=== PATIENT | female | born 1935 | race African-American/Black ===

== ENCOUNTER 2018-02-11 14:59 | Emergency (ER) | payer OTHER, MEDICARE ==
[2018-02-11 17:11] LABS: Potassium 4.6 mEq/L (3.6-5.0)
[2018-02-11 17:15] LABS: Urine Blood NEGATIVE (NEG); Urine Glucose NEGATIVE (NEG); Urine Protein 1+ (NEG); Urine pH 5.5 (5.0-7.0)
[2018-02-11 17:18] LABS: Bilirubin Direct 0.1 mg/dL (0-0.2); Bilirubin Total 0.8 mg/dL (0.3-1.2); Protein, Total 8.4 g/dL (6.0-8.3)
[2018-02-11 17:20] LABS: Absolute Lymphocytes (CBC) 2.3 K/uL (0.7-4.9); Absolute Monocytes 0.6 K/uL (0.1-1.3); Absolute Neutrophil 4.6 K/uL (1.8-8.0); Basophils % 0.7 % (0-1.3); Eosinophils % 1.4 % (0-4.4); Hematocrit 43.9 % (36.0-45.0); Lymphocytes % 30.1 % (15.3-44.8); MCH 27.8 pg (27.0-35.0); MCV 84.7 fL (80-100); MPV 9.5 fL (7.6-11.3); Monocytes % 7.6 % (3.3-12.3); RBC Red Blood Cell Count 5.18 M/uL (3.86-4.86)
--- NOTE | 2018-02-11 17:30 | RAD REPORT ---
EXAM DESCRIPTION: CT - Stone Protocol - 02/11/2018 5:19 pm CLINICAL HISTORY: Abdominal pain. Bilateral flank pain COMPARISON: None. TECHNIQUE: Computed axial tomography of the abdomen pelvis was obtained without oral or IV contrast. Lack of IV and oral contrast limits evaluation of solid organs, bowel, and vessels. Coronal reformat roldan images were obtained and reviewed. All CT scans are performed using dose optimization technique as appropriate and may include automated exposure control or mA/KV adjustment according to patient size. FINDINGS: A renal calculus is not seen. An ureteral calculus is not noted. A bladder calculus is not present. Renal cysts are present bilaterally The liver, spleen, pancreas and adrenals appear grossly normal There is no evidence of diverticulitis. A small umbilical hernia is present. Postsurgical changes involve the spine. The appendix is normal IMPRESSION: Negative for a genitourinary calculus
[2018-02-11 18:07] LABS: Urine Bacteria <20 /HPF (<20); Urine Culture Reflex Order NOT NEEDED; Urine RBC <5 /HPF (NONE SEEN)
[2018-02-11 18:08] LABS: Calcium Oxalate Crystals- Ur FEW (NONE SEEN)
[2018-02-11] MEDS ORDERED: MORPHINE 4 MG/ML SYR ONE (18:45)
[2018-02-11] MEDS ORDERED: ONDANSETRON 4 MG/2 ML VIAL ONE (18:45)
--- NOTE | 2018-02-11 19:43 | EDPHYS ---
Physician Documentation [facility] Name: Niurka Gomes Age: 82 yrs Sex: Female : 1935 Arrival Date: 02/11/2018 Time: 15:02 Bed 16 Private MD: ED Physician Fadi Babb HPI: 02/11 16:00 This 82 yrs old Black Female presents to ER via Wheelchair with complaints of Abdominal jmm Pain. 16:00 The patient presents with abdominal pain flank bilaterally. Onset: The symptoms/episode jmm began/occurred gradually, 1 day(s) ago. The symptoms do not radiate. Associated signs and symptoms: Pertinent negatives: nausea and vomiting, chest pain, fever. Patient complains of bilateral flank pain beginning yesterday. Denies abdominal pain, vomiting, diarrhea, fever. . Historical: - Allergies: 15:12 codeine sulfate (Unknown reaction); sv - Home Meds: 15:50 allopurinol 300 mg Oral tab 1 tab once daily [Active]; aspirin 81 mg Oral chew 1 tab rb1 once daily [Active]; Carafate 1 gram Oral tab 1 tab [Active]; carvedilol 25 mg Oral tab [Active]; clopidogrel 75 mg Oral tab 1 tab once daily [Active]; gabapentin 300 mg/6 mL (6 mL) Oral soln 6 mL 3 times per day [Active]; hydralazine 100 mg Oral tab three times a day [Active]; hydrocodone-acetaminophen 10-325 mg Oral tab 1 tab q6h prn [Active]; Nifedipine 30 mg Oral once daily [Active]; pantoprazole 40 mg Oral TbEC 1 tab once daily [Active]; simvastatin 10 mg Oral tab 1 tab once daily [Active]; Tessalon Perles 100 mg Oral cap twice a day [Active]; trazodone 50 mg Oral tab nightly [Active]; Vitamin D2 50,000 unit Oral cap 1 cap once wkly [Active]; - PMHx: 15:12 Arthritis; Gout; Hypertension; irregular HR; sv - PSHx: 15:12 Carpal Tunnel Repair; back; sv 15:50 neck; rb1 - Immunization history:: Adult Immunizations up to date. - Social history:: Smoking status: Patient/guardian denies using tobacco. - Ebola Screening: : No symptoms or risks identified at this time. ROS: 16:00 Constitutional: Negative for fever, chills, and weight loss, Cardiovascular: Negative jmm for chest pain, palpitations, and edema, Respiratory: Negative for shortness of breath, cough, wheezing, and pleuritic chest pain. 16:00 MS/Extremity: Negative for injury and deformity, Skin: Negative for injury, rash, and discoloration, Neuro: Negative for headache, weakness, numbness, tingling, and seizure. 16:00 Abdomen/GI: Positive for flank pain. 16:00 All other systems are negative. Exam: 16:00 Head/Face: atraumatic. Chest/axilla: Normal chest wall appearance and motion. jmm Nontender with no deformity. No lesions are appreciated. Cardiovascular: Regular rate and rhythm. No gallops, murmurs, or rubs. Full/Equal distal pulses. Respiratory: Lungs have equal breath sounds bilaterally, clear to auscultation. No rales, rhonchi or wheezes noted. No increased work of breathing, no retractions or nasal flaring. 16:00 Skin: Warm, dry with normal turgor. Normal color with no rashes, no lesions, and no evidence of cellulitis. MS/ Extremity: Pulses equal, no cyanosis. Neurovascular intact. Full, normal range of motion. 16:00 Constitutional: The patient appears in no acute distress, alert, awake. 16:00 Abdomen/GI: Inspection: abdomen appears normal, Bowel sounds: normal, Palpation: abdomen is soft and non-tender, in all quadrants. 16:00 Back: CVA tenderness, that is mild, is noted bilaterally. 16:00 Skin: Appearance: Color: normal in color. 16:00 Neuro: Orientation: is normal, Mentation: is normal, Memory: is normal. 16:00 Psych: Behavior/mood is pleasant, cooperative. Vital Signs: 15:12 BP 125 / 68; Pulse 62; Resp 18; Temp 98.7; Pulse Ox 97% ; Weight 99.79 kg; Height 5 ft. sv 5 in. (165.10 cm); Pain 2/10; 16:10 BP 131 / 71; Pulse 66; Resp 18; Pulse Ox 100% on R/A; rb1 17:10 BP 137 / 89; Pulse 72; Resp 18; Pulse Ox 99% on R/A; rb1 18:08 BP 145 / 92; Pulse 61; Resp 19; Pulse Ox 98% on R/A; rb1 19:15 BP 156 / 85; Pulse 56; Pulse Ox 95% on R/A; bs1 20:15 BP 124 / 76; Pulse 60; Resp 16; Temp 98(O); Pulse Ox 97% on R/A; Pain 3/10; bs1 15:12 Body Mass Index 36.61 (99.79 kg, 165.10 cm) sv MDM: 15:58 Patient medically screened. [facility] 16:00 Differential diagnosis: thoracic strain, pyelonephritis, ureterolithiasis. Data [facility] reviewed: vital signs, nurses notes. 02/11 15:59 Order name: Amylase, Serum [facility] 02/11 15:59 Order name: Basic Metabolic Panel [facility] 02/11 15:59 Order name: CBC with Diff; Complete Time: 17:33 [facility] 02/11 15:59 Order name: Creatinine for Radiology; Complete Time: 17:33 [facility] 02/11 15:59 Order name: Hepatic Function; Complete Time: 17:33 [facility] 02/11 15:59 Order name: Lipase; Complete Time: 17:33 [facility] 02/11 15:59 Order name: Urine Microscopic Only; Complete Time: 18:34 [facility] 02/11 15:59 Order name: IV Saline Lock; Complete Time: 16:40 [facility] 02/11 15:59 Order name: CT Stone Protocol; Complete Time: 17:33 [facility] 02/11 15:59 Order name: Amylase Level; Complete Time: 17:33 [facility] [place] 02/11 15:59 Order name: Basic Metabolic Panel; Complete Time: 17:33 [facility] 02/11 17:07 Order name: Urine Dipstick--Ancillary (enter results); Complete Time: 17:33 02/11 15:59 Order name: Labs collected and sent; Complete Time: 16:40 [facility] 02/11 15:59 Order name: Urine Dipstick-Ancillary (obtain specimen); Complete Time: 17:07 [facility] Administered Medications: 18:45 Drug: Zofran 4 mg Route: IVP; Site: right antecubital; rb1 20:27 Follow up: Response: No adverse reaction bs1 18:45 Drug: morphine 2 mg Route: IVP; Site: right antecubital; rb1 20:26 Follow up: Response: No adverse reaction bs1 Disposition: 02/11/18 19:43 Discharged to Home. Impression: Flank Pain. - Condition is Stable. - Discharge Instructions: Flank Pain. - Prescriptions for orphenadrine citrate 100 mg Oral Tablet Sustained Release - take 1 tablet by ORAL route 2 times per day As needed; 20 tablet. - Medication Reconciliation Form, Thank You Letter, Antibiotic Education, Prescription Opioid Use form. - Follow up: Private Physician; When: 2 - 3 days; Reason: Continuance of care. Addendum: 02/13/2018 07:02 Co-signature as Attending Physician, Fadi Babb MD. r n Signatures: Dispatcher [employer] EDAry Duran, RN RN Trent Torres PA PA jmm Nieto, Roman, MD MD rn Barber, Rebecca RN RN Dana Richter RN RN bs1 Corrections: (The following items were deleted from the chart) 02/11 20:28 19:43 02/11/2018 19:43 Discharged to Home. Impression: Flank Pain. Condition is Stable. bs1 Forms are Medication Reconciliation Form, Thank You Letter, Antibiotic Education, Prescription Opioid Use. Follow up: Private Physician; When: 2 - 3 days; Reason: Continuance of care. kermit
--- NOTE | 2018-02-11 19:43 | ER ---
Nurse's Notes [facility] Name: Niurka Gomes Age: 82 yrs Sex: Female : 1935 Arrival Date: 02/11/2018 Time: 15:02 Bed 16 Private MD: Diagnosis: Flank Pain Presentation: 02/11 15:11 Presenting complaint: Patient states: carmen flank pain x 1 day. Denies n/v/urinary sv symptoms. Transition of care: patient was not received from another setting of care. Onset of symptoms was February 10, 2018. Care prior to arrival: None. 15:11 Method Of Arrival: Wheelchair sv 15:11 Acuity: YESENIA 3 sv 15:50 Risk Assessment: Do you want to hurt yourself or someone else? Patient reports no rb1 desire to harm self or others. Initial Sepsis Screen: Does the patient meet any 2 criteria? No. Patient's initial sepsis screen is negative. Does the patient have a suspected source of infection? No. Patient's initial sepsis screen is negative. Historical: - Allergies: 15:12 codeine sulfate (Unknown reaction); sv - Home Meds: 15:50 allopurinol 300 mg Oral tab 1 tab once daily [Active]; aspirin 81 mg Oral chew 1 tab rb1 once daily [Active]; Carafate 1 gram Oral tab 1 tab [Active]; carvedilol 25 mg Oral tab [Active]; clopidogrel 75 mg Oral tab 1 tab once daily [Active]; gabapentin 300 mg/6 mL (6 mL) Oral soln 6 mL 3 times per day [Active]; hydralazine 100 mg Oral tab three times a day [Active]; hydrocodone-acetaminophen 10-325 mg Oral tab 1 tab q6h prn [Active]; Nifedipine 30 mg Oral once daily [Active]; pantoprazole 40 mg Oral TbEC 1 tab once daily [Active]; simvastatin 10 mg Oral tab 1 tab once daily [Active]; Tessalon Perles 100 mg Oral cap twice a day [Active]; trazodone 50 mg Oral tab nightly [Active]; Vitamin D2 50,000 unit Oral cap 1 cap once wkly [Active]; - PMHx: 15:12 Arthritis; Gout; Hypertension; irregular HR; sv - PSHx: 15:12 Carpal Tunnel Repair; back; sv 15:50 neck; rb1 - Immunization history:: Adult Immunizations up to date. - Social history:: Smoking status: Patient/guardian denies using tobacco. - Ebola Screening: : No symptoms or risks identified at this time. Screenin:50 Abuse screen: Denies threats or abuse. Nutritional screening: No deficits noted. rb1 Tuberculosis screening: No symptoms or risk factors identified. Fall Risk None identified. Assessment: 15:50 General: Appears in no apparent distress. comfortable, obese, Behavior is calm, rb1 cooperative, Denies fever. Pain: Complains of pain in left mid back and right mid back Pain currently is 4 out of 10 on a pain scale. Pain began 1 day ago. Neuro: Level of Consciousness is awake, alert, obeys commands, Oriented to person, place, time, situation. Cardiovascular: Capillary refill < 3 seconds is brisk in bilateral fingers. Respiratory: Airway is patent Respiratory effort is even, unlabored, Respiratory pattern is regular, symmetrical. GI: Bowel sounds present X 4 quads. Abd is soft. : No signs and/or symptoms were reported regarding the genitourinary system. Derm: Skin is dry, Skin is normal, Skin temperature is warm. 16:25 Reassessment: Called lab to ask them to come and draw labs. Provider notified. rb1 16:50 Reassessment: Patient appears in no apparent distress at this time. No changes from rb1 previously documented assessment. 17:45 Reassessment: Patient appears in no apparent distress at this time. Patient and/or rb1 family updated on plan of care and expected duration. Pain level reassessed. Patient is alert, oriented x 3, equal unlabored respirations, skin warm/dry/pink. Family at bedside. 18:45 Reassessment: Patient appears in no apparent distress at this time. Patient and/or rb1 family updated on plan of care and expected duration. Pain level reassessed. Patient is alert, oriented x 3, equal unlabored respirations, skin warm/dry/pink. Pt. medicated for pain. family at bedside. 19:05 Reassessment: Report received from YAW Stewart. bs1 19:05 General: Appears in no apparent distress. comfortable, obese, Behavior is cooperative, bs1 Denies fever. Pain: Complains of pain in back and right mid back and left mid back. Neuro: Level of Consciousness is awake, alert, obeys commands, Oriented to person, place, time, situation, Appropriate for age. Cardiovascular: Denies chest pain, shortness of breath, Heart tones S1 S2 present Capillary refill < 3 seconds is brisk in bilateral fingers. Respiratory: Airway is patent Trachea midline Respiratory effort is even, unlabored, Respiratory pattern is regular, symmetrical, Breath sounds are clear bilaterally. GI: Abdomen is round non-distended, Bowel sounds present X 4 quads. : No signs and/or symptoms were reported regarding the genitourinary system. Derm: Skin is intact. 20:15 Reassessment: Patient appears in no apparent distress at this time. Patient and/or bs1 family updated on plan of care and expected duration. Pain level reassessed. Patient is alert, oriented x 3, equal unlabored respirations, skin warm/dry/pink. Vital Signs: 15:12 BP 125 / 68; Pulse 62; Resp 18; Temp 98.7; Pulse Ox 97% ; Weight 99.79 kg; Height 5 ft. sv 5 in. (165.10 cm); Pain 2/10; 16:10 BP 131 / 71; Pulse 66; Resp 18; Pulse Ox 100% on R/A; rb1 17:10 BP 137 / 89; Pulse 72; Resp 18; Pulse Ox 99% on R/A; rb1 18:08 BP 145 / 92; Pulse 61; Resp 19; Pulse Ox 98% on R/A; rb1 19:15 BP 156 / 85; Pulse 56; Pulse Ox 95% on R/A; bs1 20:15 BP 124 / 76; Pulse 60; Resp 16; Temp 98(O); Pulse Ox 97% on R/A; Pain 3/10; bs1 15:12 Body Mass Index 36.61 (99.79 kg, 165.10 cm) sv ED Course: 15:02 Patient arrived in ED. mr 15:11 Triage completed. sv 15:14 Arm band placed on left wrist. sv 15:49 Trent Sams PA is PHCP. jmm 15:49 Fadi Babb MD is Attending Physician. jmm 15:50 Patient has correct armband on for positive identification. Bed in low position. Call rb1 light in reach. Side rails up X 1. Pulse ox on. NIBP on. Warm blanket given. 16:24 Pat Patricia, YAW is Primary Nurse. rb1 16:38 Inserted saline lock: 22 gauge in right antecubital area, using aseptic technique. rb1 ,using aseptic technique. Inserted by LUIZ Sanchez. 17:12 Patient moved to HI. 17:19 CT Stone Protocol In Process Unspecified. EDMS 19:00 Report given to YAW Cortez. rb1 20:22 No provider procedures requiring assistance completed. IV discontinued, bleeding bs1 controlled, No redness/swelling at site. Pressure dressing applied. Administered Medications: 18:45 Drug: Zofran 4 mg Route: IVP; Site: right antecubital; rb1 20:27 Follow up: Response: No adverse reaction bs1 18:45 Drug: morphine 2 mg Route: IVP; Site: right antecubital; rb1 20:26 Follow up: Response: No adverse reaction bs1 Outcome: 19:43 Discharge ordered by . [facility] 20:25 Discharged to home via wheelchair. bs1 20:25 Condition: stable 20:25 Discharge instructions given to patient, Instructed on discharge instructions, follow up and referral plans. medication usage, Demonstrated understanding of instructions, follow-up care, medications, Prescriptions given X 1. 20:28 Patient left the ED. bs1 Signatures: Dispatcher [employer] EDMS Ary Acosta, RN RN Trent Sams PA PA [facility] Vivian Morel mr Moreira, Parris Pat Patricia, RN RN rb1 Dana Pennington, YAW RN bs1 Corrections: (The following items were deleted from the chart) 18:14 18:12 BP 145 / 92; Pulse 61bpm; Resp 19bpm; Pulse Ox 98% RA; rb1 rb1
[2018-02-11 20:41] VITALS: BP 124/76; TEMP 98; O2SAT 97
== END 2018-02-11 20:28 | disposition home or self-care (01) ==
LOC: ER 14:59
DX: R10.9 Unspecified abdominal pain (principal); I10 Essential (primary) hypertension; Z79.82 Long term (current) use of aspirin; Z88.5 Allergy status to narcotic agent
CPT/HCPCS: 36415; 74176; 76377; 80048; 80076; 82150; 83690; 85025; J2405; 81003; 81015; 96374; 96375; 99284

== ENCOUNTER 2018-10-25 08:18 | Emergency (ER) | payer OTHER, MEDICARE ==
--- NOTE | 2018-10-25 08:57 | RAD REPORT ---
EXAM DESCRIPTION: RAD - Chest Single View - 10/25/2018 8:41 am CLINICAL HISTORY: COUGH Chest pain. COMPARISON: Chest Single View dated 08/02/2017; Chest Single View dated 07/02/2017; Chest Pa And Lat (2 Views) dated 10/23/2016; Chest Single View dated 09/18/2016 FINDINGS: Portable technique limits examination quality. Mildly prominent interstitial lung markings are noted, unchanged. The heart is normal in size. No dis placed fractures.
--- NOTE | 2018-10-25 09:09 | ER ---
Nurse's Notes [facility] Name: Niurka Gomes Age: 82 yrs Sex: Female : 1935 Arrival Date: 10/25/2018 Time: 08:23 Bed 7 Private MD: Diagnosis: Acute upper respiratory infection, unspecified Presentation: 10/25 08:23 Presenting complaint: EMS states: Cough that worsened last night and this morning, no sg n/v/d/fever reported, denies chills, reports having been around someone that had the flu recently. Transition of care: patient was not received from another setting of care. Onset of symptoms was October 11, 2018. Risk Assessment: Do you want to hurt yourself or someone else? Patient reports no desire to harm self or others. Initial Sepsis Screen: Does the patient meet any 2 criteria? No. Patient's initial sepsis screen is negative. Does the patient have a suspected source of infection? Yes: Productive cough/pneumonia. Care prior to arrival: IV initiated. 20 GA, in the right antecubital area. 08:23 Method Of Arrival: EMS: [facility] sg 08:23 Acuity: YESENIA 4 sg Historical: - Allergies: 08:31 codeine sulfate (Unknown reaction); sg - Home Meds: 08:31 allopurinol 300 mg Oral tab 1 tab once daily [Active]; aspirin 81 mg Oral chew 1 tab sg once daily [Active]; Carafate 1 gram Oral tab 1 tab [Active]; carvedilol 25 mg Oral tab [Active]; clopidogrel 75 mg Oral tab 1 tab once daily [Active]; gabapentin 300 mg/6 mL (6 mL) Oral soln 6 mL 3 times per day [Active]; hydralazine 100 mg Oral tab three times a day [Active]; hydrocodone-acetaminophen 10-325 mg Oral tab 1 tab q6h prn [Active]; Nifedipine 30 mg Oral once daily [Active]; pantoprazole 40 mg Oral TbEC 1 tab once daily [Active]; simvastatin 10 mg Oral tab 1 tab once daily [Active]; Tessalon Perles 100 mg Oral cap twice a day [Active]; trazodone 50 mg Oral tab nightly [Active]; Vitamin D2 50,000 unit Oral cap 1 cap once wkly [Active]; - PMHx: 08:31 Arthritis; Gout; Hypertension; irregular HR; sg - PSHx: 08:31 Carpal Tunnel Repair; back; neck; sg - Immunization history:: Adult Immunizations up to date. - Social history:: Smoking status: Patient/guardian denies using tobacco. - Ebola Screening: : Patient negative for fever greater than or equal to 101.5 degrees Fahrenheit, and additional compatible Ebola Virus Disease symptoms Patient denies exposure to infectious person Patient denies travel to an Ebola-affected area in the 21 days before illness onset No symptoms or risks identified at this time. Screenin:34 Abuse screen: Denies threats or abuse. Denies injuries from another. Nutritional sg screening: No deficits noted. Tuberculosis screening: No symptoms or risk factors identified. Never had TB. Fall Risk None identified. Assessment: 08:32 General: Appears in no apparent distress. comfortable, well groomed, well developed, sg well nourished, Behavior is calm, cooperative, appropriate for age. Pain: Denies pain. Neuro: Level of Consciousness is awake, alert, obeys commands, Oriented to person, place, time, situation, [employer] Instructor are equal bilaterally Speech is normal. Cardiovascular: Capillary refill is brisk in bilateral fingers Patient's skin is warm and dry. Chest pain is denied. Respiratory: Reports cough that is non-productive, hacking, persistent Airway is patent Respiratory effort is even, unlabored, Respiratory pattern is regular, symmetrical. GI: No signs and/or symptoms were reported involving the gastrointestinal system. : No signs and/or symptoms were reported regarding the genitourinary system. EENT: No signs and/or symptoms were reported regarding the EENT system. Derm: Skin is pink, warm \T\ dry. Musculoskeletal: No signs and/or symptoms reported regarding the musculoskeletal system. 08:34 Reassessment: xray at bedside. sg 09:19 Reassessment: Patient appears in no apparent distress at this time. Patient and/or sg family updated on plan of care and expected duration. Pain level reassessed. Patient is alert, oriented x 3, equal unlabored respirations, skin warm/dry/pink. awaiting pt family member, Sandrine, to come pick her up from the ED at this time. 10:00 Reassessment: Patient appears in no apparent distress at this time. No changes from aj1 previously documented assessment. Patient and/or family updated on plan of care and expected duration. Pain level reassessed. Patient is alert, oriented x 3, equal unlabored respirations, skin warm/dry/pink. Vital Signs: 08:25 BP 188 / 90; Pulse 80; Resp 17; Temp 98.4; Pulse Ox 96% on R/A; Weight 115.67 kg (R); sg Pain 2/10; 09:07 BP 158 / 78; Pulse 77; Resp 16; Pulse Ox 98% on R/A; hb 10:30 BP 158 / 72; Pulse 68; Resp 18; Pulse Ox 97% on R/A; aj1 ED Course: 08:23 Patient arrived in ED. sg 08:23 Jer[facility]C [facility] kb 08:23 Wilner Gordillo MD is Attending Physician. kb 08:25 Triage completed. sg 08:26 Arm band placed on. sg 08:34 Waldo Serrano, RN is Primary Nurse. sg 08:35 Flu and/or RSV swab sent to lab. sg 08:40 Patient has correct armband on for positive identification. Placed in gown. Bed in low sg position. Side rails up X2. media monitor on. Pulse ox on. NIBP on. Warm blanket given. Head of bed elevated. 08:41 X-ray completed. Portable x-ray completed in exam room. Patient tolerated procedure sg4 well. 08:42 Chest Single View XRAY In Process Unspecified. EDMS 10:00 Maintain EMS IV. Dressing intact. Good blood return noted. Site clean \T\ dry. Gauge \T\ aj 1 site: 22 right AC. 10:56 No provider procedures requiring assistance completed. IV discontinued, intact, aj1 bleeding controlled, No redness/swelling at site. Pressure dressing applied. Administered Medications: 09:15 Drug: SOLU-Medrol 125 mg Route: IVP; Site: right antecubital; sg 09:15 Drug: ZyrTEC - Cetirizine 10 mg Route: PO; sg Outcome: 09:09 Discharge ordered by . kb 10:57 Discharged to home via wheelchair, with family. aj1 10:57 Condition: good 10:57 Discharge instructions given to patient, family, Instructed on discharge instructions, follow up and referral plans. medication usage, Demonstrated understanding of instructions, follow-up care, medications, Prescriptions given X 1. 10:58 Patient left the ED. aj1 Signatures: Dispatcher [employer] EDJerri Castellanos, DAREK BLACKWELL-Donna Gannon RN RN aj1 Waldo Serrano RN RN sg Margarita Ybarra RN RN hb Garcia, Susana sg4 Corrections: (The following items were deleted from the chart) 08:26 08:23 Care prior to arrival: None. sg sg
--- NOTE | 2018-10-25 09:09 | EDPHYS ---
Physician Documentation [facility] Name: Niurka Gomes Age: 82 yrs Sex: Female : 1935 Arrival Date: 10/25/2018 Time: 08:23 Bed 7 Private MD: ED Physician Wilner Gordillo HPI: 10/25 08:24 This 82 yrs old Black Female presents to ER via Unassigned with complaints of Cough. kb 08:24 The patient or guardian reports cough, that is intermittent, described as moderate, kb with no sputum. Onset: The symptoms/episode began/occurred 1 week(s) ago. Severity of symptoms: At their worst the symptoms were mild, moderate, in the emergency department the symptoms are unchanged. Modifying factors: The symptoms are alleviated by nothing, the symptoms are aggravated by nothing. Associated signs and symptoms: The patient has no apparent associated signs or symptoms. The patient has not experienced similar symptoms in the past. The patient has not recently seen a physician. Pt reports cough for a week, worse last night. Cough is dry. Denies fever. States others in the family have had cold symptoms . Historical: - Allergies: 08: codeine sulfate (Unknown reaction); sg - Home Meds: : allopurinol 300 mg Oral tab 1 tab once daily [Active]; aspirin 81 mg Oral chew 1 tab sg once daily [Active]; Carafate 1 gram Oral tab 1 tab [Active]; carvedilol 25 mg Oral tab [Active]; clopidogrel 75 mg Oral tab 1 tab once daily [Active]; gabapentin 300 mg/6 mL (6 mL) Oral soln 6 mL 3 times per day [Active]; hydralazine 100 mg Oral tab three times a day [Active]; hydrocodone-acetaminophen 10-325 mg Oral tab 1 tab q6h prn [Active]; Nifedipine 30 mg Oral once daily [Active]; pantoprazole 40 mg Oral TbEC 1 tab once daily [Active]; simvastatin 10 mg Oral tab 1 tab once daily [Active]; Tessalon Perles 100 mg Oral cap twice a day [Active]; trazodone 50 mg Oral tab nightly [Active]; Vitamin D2 50,000 unit Oral cap 1 cap once wkly [Active]; - PMHx: 08:31 Arthritis; Gout; Hypertension; irregular HR; sg - PSHx: 08:31 Carpal Tunnel Repair; back; neck; sg - Immunization history:: Adult Immunizations up to date. - Social history:: Smoking status: Patient/guardian denies using tobacco. - Ebola Screening: : Patient negative for fever greater than or equal to 101.5 degrees Fahrenheit, and additional compatible Ebola Virus Disease symptoms Patient denies exposure to infectious person Patient denies travel to an Ebola-affected area in the 21 days before illness onset No symptoms or risks identified at this time. ROS: 08:24 Constitutional: Negative for fever, chills, and weight loss, Neck: Negative for injury, kb pain, and swelling, Cardiovascular: Negative for chest pain, palpitations, and edema, Abdomen/GI: Negative for abdominal pain, nausea, vomiting, diarrhea, and constipation, Back: Negative for injury and pain, : Negative for injury, bleeding, discharge, and swelling, MS/Extremity: Negative for injury and deformity, Skin: Negative for injury, rash, and discoloration, Neuro: Negative for headache, weakness, numbness, tingling, and seizure. 08:24 Respiratory: Positive for cough, Negative for dyspnea on exertion, hemoptysis, orthopnea, pleurisy, shortness of breath, sputum production, wheezing, acute changes. 08:27 ENT: Positive for ear pain. kb Exam: 08:24 Constitutional: This is a well developed, well nourished patient who is awake, alert, kb and in no acute distress. Head/Face: Normocephalic, atraumatic. ENT: Nares patent. No nasal discharge, no septal abnormalities noted. Tympanic membranes are normal and external auditory canals are clear. Oropharynx with no redness, swelling, or masses, exudates, or evidence of obstruction, uvula midline. Mucous membranes moist. Neck: Trachea midline, no thyromegaly or masses palpated, and no cervical lymphadenopathy. Supple, full range of motion without nuchal rigidity, or vertebral point tenderness. No Meningismus. Chest/axilla: Normal chest wall appearance and motion. Nontender with no deformity. No lesions are appreciated. Cardiovascular: Regular rate and rhythm with a normal S1 and S2. No gallops, murmurs, or rubs. Normal PMI, no JVD. No pulse deficits. Respiratory: Lungs have equal breath sounds bilaterally, clear to auscultation and percussion. No rales, rhonchi or wheezes noted. No increased work of breathing, no retractions or nasal flaring. Abdomen/GI: Soft, non-tender, with normal bowel sounds. No distension or tympany. No guarding or rebound. No evidence of tenderness throughout. Back: No spinal tenderness. No costovertebral tenderness. Full range of motion. Skin: Warm, dry with normal turgor. Normal color with no rashes, no lesions, and no evidence of cellulitis. MS/ Extremity: Pulses equal, no cyanosis. Neurovascular intact. Full, normal range of motion. Neuro: Awake and alert, GCS 15, oriented to person, place, time, and situation. Cranial nerves II-XII grossly intact. Motor strength 5/5 in all extremities. Sensory grossly intact. Cerebellar exam normal. Normal gait. Vital Signs: 08:25 BP 188 / 90; Pulse 80; Resp 17; Temp 98.4; Pulse Ox 96% on R/A; Weight 115.67 kg (R); sg Pain 2/10; 09:07 BP 158 / 78; Pulse 77; Resp 16; Pulse Ox 98% on R/A; hb 10:30 BP 158 / 72; Pulse 68; Resp 18; Pulse Ox 97% on R/A; aj1 MDM: 08:23 Patient medically screened. kb 08:28 Data reviewed: vital signs, nurses notes. Data interpreted: Pulse oximetry: on room air kb is 96 %. Interpretation: normal. 09:08 Counseling: I had a detailed discussion with the patient and/or guardian regarding: the kb historical points, exam findings, and any diagnostic results supporting the discharge/admit diagnosis, lab results, radiology results, the need for outpatient follow up, a family practitioner, to return to the emergency department if symptoms worsen or persist or if there are any questions or concerns that arise at home. 10/25 08:23 Order name: Flu; Complete Time: 09:02 kb 10/25 08:23 Order name: Chest Single View XRAY; Complete Time: 08:59 kb Administered Medications: 09:15 Drug: SOLU-Medrol 125 mg Route: IVP; Site: right antecubital; sg 09:15 Drug: ZyrTEC - Cetirizine 10 mg Route: PO; sg Disposition: 10/25/18 09:09 Discharged to Home. Impression: Acute upper respiratory infection, unspecified. - Condition is Stable. - Discharge Instructions: Upper Respiratory Infection, Adult, [id number], Viral Respiratory Infection, Cikq-On-Aope. - Prescriptions for Tessalon Perles 100 mg Oral Capsule - take 1 capsule by ORAL route every 8 hours As needed; 15 capsule. - Medication Reconciliation Form, Thank You Letter, Antibiotic Education, Prescription Opioid Use form. - Follow up: Emergency Department; When: As needed; Reason: Worsening of condition. Follow up: Private Physician; When: 2 - 3 days; Reason: Recheck today's complaints, Continuance of care, Re-evaluation by your physician. Addendum: 10/27/2018 07:30 Co-signature as Attending Physician, Wilner Gordillo MD I agree with the assessment and c martinez plan of care. Signatures: Dispatcher [employer] EDJerri Castellanos, RISHI-C STUDENT OFFICER-Donna Gannon RN RN aj1 Gay, Steven, RN RN sg Anderson, Corey, MD MD cha Corrections: (The following items were deleted from the chart) 10/25 08:28 08:24 Constitutional: Negative for fever, chills, and weight loss, ENT: Negative for kb injury, pain, and discharge, Neck: Negative for injury, pain, and swelling, Cardiovascular: Negative for chest pain, palpitations, and edema, Abdomen/GI: Negative for abdominal pain, nausea, vomiting, diarrhea, and constipation, Back: Negative for injury and pain, : Negative for injury, bleeding, discharge, and swelling, MS/Extremity: Negative for injury and deformity, Skin: Negative for injury, rash, and discoloration, Neuro: Negative for headache, weakness, numbness, tingling, and seizure, kb 10:58 09:09 10/25/2018 09:09 Discharged to Home. Impression: Acute upper respiratory aj1 infection, unspecified. Condition is Stable. Forms are Medication Reconciliation Form, Thank You Letter, Antibiotic Education, Prescription Opioid Use. Follow up: Emergency Department; When: As needed; Reason: Worsening of condition. Follow up: Private Physician; When: 2 - 3 days; Reason: Recheck today's complaints, Continuance of care, Re-evaluation by your physician. kb
[2018-10-25] MEDS ORDERED: CETIRIZINE HCL 5 MG TABLET ONE (09:21)
[2018-10-25] MEDS ORDERED: METHYLPREDNISOLONE 125 MG INJ ONE (09:21)
[2018-10-25 11:08] VITALS: TEMP 98.4
[2018-10-25 11:11] VITALS: BP 158/72; O2SAT 97
== END 2018-10-25 10:58 | disposition home or self-care (01) ==
LOC: ER 08:18
DX: J06.9 Acute upper respiratory infection, unspecified (principal); M10.9 Gout, unspecified; I10 Essential (primary) hypertension; Z79.84 Long term (current) use of oral hypoglycemic drugs; Z88.5 Allergy status to narcotic agent
CPT/HCPCS: 71045; 87804 ×2; 96374; 99284; J2930

== ENCOUNTER 2018-12-14 17:15 | Emergency (ER) | payer OTHER, MEDICARE ==
--- NOTE | 2018-12-14 18:31 | RAD REPORT ---
EXAM DESCRIPTION: CT - Head Brain Wo Cont - 12/14/2018 6:18 pm CLINICAL HISTORY: Headache, visual disturbances COMPARISON: December 2014 TECHNIQUE: Axial 5 mm thick images of the head were obtained without IV contrast. All CT scans are performed using dose optimization technique as appropriate and may include automated exposure control or mA/KV adjustment according to patient size. FINDINGS: No intracranial hemorrhage, mass, edema or shift of mid-line structures. No acute cortical based infarction. Atrophy and chronic ischemic changes are present mild to moderate in degree. Ventr icles are in proportion to the volume loss. No abnormal extra-axial fluid collections. The intracrani al findings are not substantially different from comparison. Mastoid air cells and visualized portions of the paranasal sinuses are clear. No acute bony findings. IMPRESSION: Negative non-contrast CT head examination for acute finding. Mild to moderate atrophy and chronic ischemic change matching the prior study.
--- NOTE | 2018-12-14 18:42 | ER ---
Nurse's Notes [facility] Name: Niurka Gomes Age: 83 yrs Sex: Female : 1935 Arrival Date: 12/14/2018 Time: 17:21 Bed 23 Private MD: Diagnosis: Muscle spasm of back-and neck Presentation: 12/14 17:21 Presenting complaint: Patient states: PAIN STARTED SATURDAY IN MY NECK AND HEAD. 04/11 rv AT WORSE. 10 RIGHT NOW. WENT TO THE DOCTOR AND PRESCRIBED WITH HYDROCODONE. I ONLY TAKE HALF OF IT BECAUSE IT MAKES ME NAUSEOUS. IT IS TOO STRONG FOR ME. Transition of care: patient was not received from another setting of care. Onset of symptoms was December 11, 2018 at 08:00. Risk Assessment: Do you want to hurt yourself or someone else? Patient reports no desire to harm self or others. Initial Sepsis Screen: Does the patient meet any 2 criteria? No. Patient's initial sepsis screen is negative. Does the patient have a suspected source of infection? No. Patient's initial sepsis screen is negative. Care prior to arrival: None. 17:21 Method Of Arrival: EMS: [facility] rv 17:21 Acuity: YESENIA 3 rv Historical: - Allergies: 17:26 codeine sulfate (Vomiting, Upset stomach); rv - PMHx: 17:26 Arthritis; Gout; Hypertension; irregular HR; rv - PSHx: 17:26 BACK SURGERY; rv - Immunization history:: Adult Immunizations up to date. - Social history:: Smoking status: Patient/guardian denies using tobacco, Patient uses. - Ebola Screening: : Patient negative for fever greater than or equal to 101.5 degrees Fahrenheit, and additional compatible Ebola Virus Disease symptoms Patient denies exposure to infectious person Patient denies travel to an Ebola-affected area in the 21 days before illness onset. Screenin:25 Abuse screen: Denies threats or abuse. Denies injuries from another. Nutritional ca1 screening: No deficits noted. Tuberculosis screening: No symptoms or risk factors identified. Fall Risk None identified. Assessment: 17:25 General: Appears in no apparent distress. comfortable, Behavior is calm, cooperative, ca1 appropriate for age. 17:25 Pain: Complains of pain in neck Pain does not radiate. Pain currently is 6 out of 10 on ca1 a pain scale. Pain began 2-3 days ago. 17:25 Neuro: Level of Consciousness is awake, alert, obeys commands, Oriented to person, ca1 place, time, situation. Cardiovascular: Heart tones S1 S2 present Capillary refill < 3 seconds Patient's skin is warm and dry. Respiratory: Airway is patent Respiratory effort is even, unlabored, Respiratory pattern is regular, symmetrical, Breath sounds are clear bilaterally. GI: Abdomen is round non-distended, Bowel sounds present X 4 quads. Abd is soft and non tender X 4 quads. Reports nausea. : No deficits noted. No signs and/or symptoms were reported regarding the genitourinary system. EENT: No deficits noted. No signs and/or symptoms were reported regarding the EENT system. Derm: Skin is intact, is healthy with good turgor, Skin is pink, warm \T\ dry. Musculoskeletal: Circulation, motion, and sensation intact. Capillary refill < 3 seconds. 18:30 Reassessment: Patient appears in no apparent distress at this time. Patient and/or ca1 family updated on plan of care and expected duration. Pain level reassessed. Patient is alert, oriented x 3, equal unlabored respirations, skin warm/dry/pink. 19:15 Reassessment: Patient appears in no apparent distress at this time. Patient is alert, ca1 oriented x 3, equal unlabored respirations, skin warm/dry/pink. Vital Signs: 17:26 BP 129 / 52 RA; Pulse 59; Resp 17 S; Temp 97.9(O); Pulse Ox 98% on R/A; Weight 104.33 rv kg; Height 5 ft. 5 in. (165.10 cm); Pain 7/10; 19:16 BP 133 / 54; Pulse 60; Resp 18 S; Pulse Ox 100% on R/A; ca1 17:26 Body Mass Index 38.27 (104.33 kg, 165.10 cm) rv ED Course: 17:21 Patient arrived in ED. rv 17:21 Arm band placed on right wrist. ca1 17:22 [place] Urias PA is PHCP. jr8 17:22 Wilner Gordillo MD is Attending Physician. jr8 17:23 Triage completed. rv 17:25 Patient has correct armband on for positive identification. Placed in gown. Bed in low ca1 position. Call light in reach. Side rails up X 1. Pulse ox on. NIBP on. Warm blanket given. 17:34 Tonia Young, RN is Primary Nurse. ca1 18:19 CT Head Brain wo Cont In Process Unspecified. EDMS 19:14 No provider procedures requiring assistance completed. Patient did not have IV access ca1 during this emergency room visit. Administered Medications: 19:14 Drug: Zofran 4 mg Route: PO; ca1 19:14 Follow up: Response: Medication administered at discharge. ca1 Outcome: 18:40 Discharge ordered by . liz 19:16 Discharged to home via wheelchair. ca1 19:16 Condition: stable 19:16 Discharge instructions given to patient, family, daughter Instructed on discharge instructions, follow up and referral plans. medication usage, Demonstrated understanding of instructions, follow-up care, medications, Prescriptions given X 2. 19:19 Patient left the ED. ca1 Signatures: Dispatcher [employer] EDMS Montana Urias PA PA jr8 Vicente, Ronaldo, RN RN rv Tonia Young, YAW RN ca1 Corrections: (The following items were deleted from the chart) 17:50 17:25 General: Appears in no apparent distress. comfortable, Behavior is calm, ca1 cooperative, appropriate for age, ca1
--- NOTE | 2018-12-14 18:42 | EDPHYS ---
Physician Documentation [facility] Name: Niurka Gomes Age: 83 yrs Sex: Female : 1935 Arrival Date: 12/14/2018 Time: 17:21 Bed 23 Private MD: ED Physician Wilner Gordillo HPI: 12/14 17:43 This 83 yrs old Black Female presents to ER via EMS with complaints of Neck stiffness. jr8 Head pain. 17:43 The patient or guardian complains of pain, tenderness. The symptoms are located on the jr8 right side of neck. Onset: The symptoms/episode began/occurred gradually, 3 day(s) ago. Context: The problem was sustained at home, The neck injury/problem resulted from from unknown cause. Associated signs and symptoms: Pertinent positives: headache. The pain does not radiate. Modifying factors: The symptoms are alleviated by nothing. Severity of symptoms: At their worst the symptoms were mild, in the emergency department the symptoms are unchanged. The patient has not experienced similar symptoms in the past. The patient has been recently seen by a physician:. Patient stated that she woke up with neck pain on right side. Has had headache with it as well. Around the same time noticed on/off double vision. Recently saw PCP and was given Hydrocodone. Stated that it makes her nauseated and is to strong for her . Historical: - Allergies: 17:26 codeine sulfate (Vomiting, Upset stomach); rv - PMHx: 17:26 Arthritis; Gout; Hypertension; irregular HR; rv - PSHx: 17:26 BACK SURGERY; rv - Immunization history:: Adult Immunizations up to date. - Social history:: Smoking status: Patient/guardian denies using tobacco, Patient uses. - Ebola Screening: : Patient negative for fever greater than or equal to 101.5 degrees Fahrenheit, and additional compatible Ebola Virus Disease symptoms Patient denies exposure to infectious person Patient denies travel to an Ebola-affected area in the 21 days before illness onset. ROS: 17:43 Eyes: Negative for injury, pain, redness, and discharge, ENT: Negative for injury, jr8 pain, and discharge, Cardiovascular: Negative for chest pain, palpitations, and edema, Respiratory: Negative for shortness of breath, cough, wheezing, and pleuritic chest pain, Abdomen/GI: Negative for abdominal pain, nausea, vomiting, diarrhea, and constipation, Back: Negative for injury and pain, MS/Extremity: Negative for injury and deformity, Skin: Negative for injury, rash, and discoloration. 17:43 Neck: Positive for pain with movement, pain at rest, stiffness, tenderness, Negative for bony tenderness. 17:43 Neuro: Positive for headache, visual changes. Exam: 17:43 Eyes: Pupils equal round and reactive to light, extra-ocular motions intact. Lids and jr8 lashes normal. Conjunctiva and sclera are non-icteric and not injected. Cornea within normal limits. Periorbital areas with no swelling, redness, or edema. ENT: Nares patent. No nasal discharge, no septal abnormalities noted. Tympanic membranes are normal and external auditory canals are clear. Oropharynx with no redness, swelling, or masses, exudates, or evidence of obstruction, uvula midline. Mucous membranes moist. Cardiovascular: Regular rate and rhythm with a normal S1 and S2. No gallops, murmurs, or rubs. Normal PMI, no JVD. No pulse deficits. Respiratory: Lungs have equal breath sounds bilaterally, clear to auscultation and percussion. No rales, rhonchi or wheezes noted. No increased work of breathing, no retractions or nasal flaring. Abdomen/GI: Soft, non-tender, with normal bowel sounds. No distension or tympany. No guarding or rebound. No evidence of tenderness throughout. Skin: Warm, dry with normal turgor. Normal color with no rashes, no lesions, and no evidence of cellulitis. MS/ Extremity: Pulses equal, no cyanosis. Neurovascular intact. Full, normal range of motion. Neuro: Awake and alert, GCS 15, oriented to person, place, time, and situation. Cranial nerves II-XII grossly intact. Motor strength 5/5 in all extremities. Sensory grossly intact. Cerebellar exam normal. Normal gait. 17:43 Neck: External neck: tenderness, that is moderate, of the right mid cervical area and right trapezius, C-spine: appears grossly normal, no vertebral tenderness, no crepitus, Thyroid: appears normal, Trachea: is midline with no obvious abnormalities, ROM/movement: pain, that is mild, with any movement, Lymph nodes: no appreciated lymphadenopathy. 17:43 Back: pain, that is moderate, of the right trapezius, ROM is normal, normal spinal alignment noted, CVA tenderness, is absent, vertebral tenderness, is not appreciated. Vital Signs: 17:26 BP 129 / 52 RA; Pulse 59; Resp 17 S; Temp 97.9(O); Pulse Ox 98% on R/A; Weight 104.33 rv kg; Height 5 ft. 5 in. (165.10 cm); Pain 7/10; 19:16 BP 133 / 54; Pulse 60; Resp 18 S; Pulse Ox 100% on R/A; ca1 17:26 Body Mass Index 38.27 (104.33 kg, 165.10 cm) rv MDM: 17:33 Patient medically screened. jr8 18:38 Data reviewed: vital signs, nurses notes, radiologic studies, CT scan, and as a result, jr8 I will discharge patient. Data interpreted: Pulse oximetry: on room air is 98 %. Interpretation: normal. Counseling: I had a detailed discussion with the patient and/or guardian regarding: the historical points, exam findings, and any diagnostic results supporting the discharge/admit diagnosis, radiology results, the need for outpatient follow up, a family practitioner, to return to the emergency department if symptoms worsen or persist or if there are any questions or concerns that arise at home. 12/14 17:41 Order name: CT Head Brain wo Cont; Complete Time: 18:38 jr8 Administered Medications: 19:14 Drug: Zofran 4 mg Route: PO; ca1 19:14 Follow up: Response: Medication administered at discharge. ca1 Disposition: 12/15 09:02 Co-signature as Attending Physician, Wilner Gordillo MD I agree with the assessment and magan plan of care. Disposition: 12/14/18 18:40 Discharged to Home. Impression: Muscle spasm of back - and neck . - Condition is Stable. - Discharge Instructions: Muscle Cramps and Spasms, Heat Therapy. - Prescriptions for Mobic 7.5 mg Oral Tablet - take 1 tablet by ORAL route once daily take with food; 20 tablet. Robaxin 500 mg Oral Tablet - take 2 tablet by ORAL route every 6 hours As needed; 40 tablet. - Medication Reconciliation Form, Thank You Letter, Antibiotic Education, Prescription Opioid Use form. - Follow up: Private Physician; When: 2 - 3 days; Reason: Recheck today's complaints, Continuance of care, Re-evaluation by your physician. - Problem is new. - Symptoms have improved. Signatures: Dispatcher [employer] EDWilner Salinas MD MD cha Roszak, Josh, PA PA jr8 Jelani Everett, RN RN rv Tonia Young RN RN ca1 Corrections: (The following items were deleted from the chart) 12/14 19:19 18:40 12/14/2018 18:40 Discharged to Home. Impression: Muscle spasm of back - and neck ca1 . Condition is Stable. Forms are Medication Reconciliation Form, Thank You Letter, Antibiotic Education, Prescription Opioid Use. Follow up: Private Physician; When: 2 - 3 days; Reason: Recheck today's complaints, Continuance of care, Re-evaluation by your physician. Problem is new. Symptoms have improved. jr8
[2018-12-14] MEDS ORDERED: ONDANSETRON 4 MG (ODT) TAB ONE (19:23)
[2018-12-14 19:29] VITALS: TEMP 97.9
[2018-12-14 19:35] VITALS: BP 133/54; O2SAT 100
== END 2018-12-14 19:19 | disposition home or self-care (01) ==
LOC: ER 17:15
DX: M62.830 Muscle spasm of back (principal); M62.838 Other muscle spasm; I10 Essential (primary) hypertension; Z88.5 Allergy status to narcotic agent
CPT/HCPCS: 70450; 99284

== ENCOUNTER 2019-10-17 14:30 | Emergency (ER) | payer OTHER, MEDICARE ==
--- OUTSIDE RECORDS SUMMARY | 2019-10-17 14:32 | XMS REPORT | Summary of Care ---
:1935 Author Organization [facility] Address [address] [place] [address] Care Team Providers Name Role Phone Yenny Chowdary MD Primary Care Provider Reason for Visit Auth/Cert Status Reason Specialty Diagnoses / Procedures Referred By Contact Referred To Contact Surgery Diagnoses Combined forms of age-related cataract, right eye Cataract of the R eye H25.811 (ICD-10-CM) - Combined forms of age-related cataract, right eye Adc Pre/Pacu/Post Procedures CT REMV CATARACT EXTRACAP,INSERT LENS PHACOEMULSIFICATION OF CATARACT WITH INTRAOCULAR LENS IMPLANT 53732 - CT REMV CATARACT EXTRACAP,INSERT LENS [address] [place] [address] [place] [address] Encounter Details Date Type Department Care Team Description 05/06/2019 Hospital Encounter [facility] MD [address] [place] [address] [place] [address] [place] [address] [place], [place] [phone] Allergies Active Allergy Reactions Severity Noted Date Comments Codeine Nausea and/or Vomiting 05/01/2019 documented as of this encounter (statuses as of 05/06/2019) Medications Medication Sig Dispensed Refills Start Date End Date Status NIFEdipine ER 30 mg Take 30 mg by 0 Active tablet mouth daily. allopurinol 300 mg Take 300 mg by 0 Active tablet mouth daily. simvastatin 10 mg Take 10 mg by 0 Active tablet mouth at bedtime. carvedilol (COREG) 25 Take 25 mg by 0 Active mg tablet mouth 2 (two) times daily with meals. gabapentin ER 300 mg Take 300 mg by 0 Active tablet, extended mouth daily. release 24 hr documented as of this encounter (statuses as of 05/06/2019) Active Problems No known active problemsdocumented as of this encounter (statuses as of 2018) Social History Tobacco Use Types Packs/Day Years Used Date Never Smoker Smokeless Tobacco: Never Used Alcohol Use Drinks/Week oz/Week Comments Never Alcohol Habits Answer Date Recorded How often do you have a drink containing alcohol? Never 05/01/2019 How many drinks containing alcohol do you have on a typical Not asked day when you are drinking? How often do you have six or more drinks on one occasion? Not asked Sex Assigned at Date Recorded Not on file Job Start Date Occupation Industry Not on file Not on file Not on file Travel History Travel Start Travel End No recent travel history available. documented as of this encounter Last Filed Vital Signs Vital Sign Reading Time Taken Comments Blood Pressure 168/85 05/06/2019 12:45 notified Dat PM CDT Delgado with anesthesia Pulse 77 05/06/2019 12:45 PM CDT Temperature 36.7 C (98.1 F) 05/06/2019 12:35 PM CDT Respiratory Rate 16 05/06/2019 12:45 PM CDT Oxygen Saturation 98% 05/06/2019 12:45 PM CDT Inhaled Oxygen - - Concentration Weight 103 kg (227 lb) 05/01/2019 1:00 PM CDT Height 165.1 cm (5' 5") 05/01/2019 1:00 PM CDT Body Mass Index 37.77 05/01/2019 1:00 PM CDT documented in this encounter Discharge Instructions InstructionsJose Manuel Granados RN - 05/06/2019CATARACT DISCHARGE INSTRUCTIONS 1. DO NOT Remove the eye patch. Leave on until you post-operative visit tomorrow. Keep it dry. 2. Activities as tolerated 3. Please no heavy lifting, and do not drive or operate machinery until you are seen by a doctor on your first post op day. 4. Your depth perception may be off, so walk a little slower. Be careful on steps or stairs and uneven ground and go slower around corners. 5. Most likely your eye will stay numb until tomorrow and you should not experience any extreme pain. However, if you should have bad pain or nausea, please call the doctor's office or hospital copier operator to get in touch with doctor. 6. For mild discomfort or a headache, you may take Tylenol, Aspirin, or Ibuprofen (in not allergic). 7. You may resume your pre-operative diet. 8. If you have any further questions or concerns, please call the office or hospital copier operator to getin touch with the doctor. documented in this encounter Plan of Treatment Name Type Priority Associated Diagnoses Order Schedule EKG-12 LEAD ROUTINE HEART STATION Routine ONCE for 1 Occurrences starting 05/06/2019 until 05/06/2019 Health Maintenance Due Date Last Done Comments DTaP,Tdap,and Td Vaccines (1 - Tdap) 12/06/1954 Zoster Recombinant Vaccine (SHINGRIX) (1 of 2) 1986 Medicare Wellness Visit 2001 Osteoporosis Screening 2001 PNEUMOCOCCAL VACCINES 65+ (1 of 2 - PCV13) 2001 INFLUENZA VACCINE (#1) 2019 documented as of this encounter Implants Implanted Type Area Casualty Underwriter Device Shelf Model / Serial Identifier Expiration / Lot Date Lens, Jimi #[id number] - [id number] LENS Right: Jimi 10/31/2023 [id number] / Implanted: Qty: 1 on 05/06/2019 by Doug Stephens MD at [facility] Eye [id number] / NA documented as of this encounter Procedures Procedure Name Priority Date/Time Associated Diagnosis Comments NOTICE OF PRIVACY Routine 04/27/2019 1:07 PM PRACTICES CDT CONSENT/REFUSAL FOR Routine 04/27/2019 1:07 PM DIAGNOSIS AND TREATMENT CDT CONSENT/REFUSAL FOR Routine 04/27/2019 1:07 PM DIAGNOSIS AND TREATMENT CDT ASSIGNMENT OF BENEFITS Routine 04/27/2019 1:07 PM CDT ASSIGNMENT OF BENEFITS Routine 04/27/2019 1:07 PM CDT PHYSICIAN ORDERS Routine 04/27/2019 12:01 AM CDT documented in this encounter Results Not on filedocumented in this encounter Visit Diagnoses Diagnosis Cataract, nuclear sclerotic senile, right - Primary documented in this encounter Administered Medications Medication Order MAR Action Action Date Dose Rate Site balanced salt irrig soln Given 05/06/2019 12:23 PM CDT 500 mL Right Eye comb1 (BSS PLUS) ophthalmic solution 500 mL bag PRN, Starting Sat05/06/19 at 1223, Until Discontinued, Routine, Intra-op carbachol (MIOSTAT) 0.01 % intraocular Given 05/06/2019 12:24 PM CDT 0.5 mL injection PRN, Starting Sat05/06/19 at 1224, Until Discontinued, Routine, Intra-op DUOVISC (DUOVISC VISCO ELASTIC) 3 %-4 %(0.5 Given 05/06/2019 12:24 PM CDT 1 Kit mL) 1 % (0.55 mL) intraocular injection PRN, Starting Sat05/06/19 at 1224, Until Discontinued, Routine, Intra-op EPINEPHrine 1:1,000 (1 mg/mL) Given 05/06/2019 12:24 PM CDT 0.5 mL Right Eye (ADRENALIN) injection PRN, Starting Sat05/06/19 at 1224, Until Discontinued, Routine, Intra-op Hyaluronidase, Human Recomb. Given 05/06/2019 12:07 PM CDT 150 Units Right Eye (HYLENEX) injection PRN, Starting Sat05/06/19 at 1207, Until Discontinued, Routine, Intra-op lidocaine-epinephrine (XYLOCAINE Given 05/06/2019 12:07 PM CDT 5 mL Right Eye W/EPINEPHRINE) 2 %-1:200,000 injection PRN, Starting Sat05/06/19 at 1207, Until Discontinued, Routine, Intra-op qyauvgkt-wsdbleebc-ovabztfhbvqlo (MAXITROL) Given 05/06/2019 12:25 PM 0.5 Inches 3.5 mg/g-10,000 unit/g-0.1 % ophthalmic CDT ointment PRN, Starting Sat05/06/19 at 1225, Until Discontinued, Routine, Intra-op sodium chloride (NS) injection Given 05/06/2019 12:26 PM CDT 10 mL PRN, Starting Sat05/06/19 at 1226, Until Discontinued, Routine, Intra-op water for irrigation irrigation solution Given 05/06/2019 12:08 PM CDT 30 mL PRN, Starting Sat05/06/19 at 1208, Until Discontinued, Routine, Intra-op Medication Order MAR Action Action Date Dose Rate Site lactated ringers IV infusion New Bag 05/06/2019 9:55 AM CDT 500 mL 20 mL/ hr 500 mL at 20 mL/hr, 500 mL, IV Infusion, ONCE, 1 dose, Sat05/06/19 at 1000, Routine, DSU Pre-op mydriatic #5 ophthalmic solution 0.5 mL Given 05/06/2019 11:27 AM CDT 0.5 mL syringe 0.5 mL, Right Eye, ONCE, 1 dose, Sat05/06/19 at 1000, Routine, DSU Pre-op documented in this encounter Insurance Payer Benefit Plan / Subscriber ID Effective Phone Address Type Group Dates MEDICARE MEDICARE PART xxxxxxxxxx 2001-Pre [phone] [address] Medicare A & B sent [phone] ANITAH OBSWELL [phone] [facility] [id number] 2003-Pre [address] Medicare HEALTHCARE HEALTHCARE sent [id number] Supplement MEDICARE [place] SUPPLEMENT ANITHA GARCIAS [id number] documented as of this encounter
--- OUTSIDE RECORDS SUMMARY | 2019-10-17 14:32 | XMS REPORT | Summary of Care ---
:1935 Author Organization [facility] Address [address] [place] [address] Care Team Providers Name Role Phone Yenny Chowdary MD Primary Care Provider Reason for Visit Reason Comments LAB WORK Auth/Cert Status Reason Specialty Diagnoses / Referred By Referred To Procedures Contact Contact Clinical Medical Diagnoses Combined forms of age-related cataract, right eye [facility] Lab Laboratory Procedures CBC WITH DIFF COMP. METABOLIC PANEL (60360) CBC WITH DIFF [address] [place] [address] Encounter Details Date Type Department Care Team Description 04/27/2019 Health And Safety Consultant Visit [facility] Doug Stephens MD [address] [place] [address] [place] [phone] Pre-op exam (Primary Phlebotomy 1, [facility] Lab Dx) Lab-[address] [place] [address] Allergies Not on Filedocumented as of this encounter (statuses as of 04/27/2019) Medications Not on filedocumented as of this encounter (statuses as of 04/27/2019) Active Problems Not on filedocumented as of this encounter (statuses as of 04/27/2019) Social History Tobacco Use Types Packs/Day Years Used Date Never Assessed Sex Assigned at Date Recorded Not on file Job Start Date Occupation Industry Not on file Not on file Not on file Travel History Travel Start Travel End No recent travel history available. documented as of this encounter Last Filed Vital Signs Not on filedocumented in this encounter Plan of Treatment Date Type Specialty Care Team Description 05/06/2019 Hospital Encounter Surgery Doug Stephens MD [address] [place] [address] 05/06/2019 Surgery Surgery Doug Stephens PHACOEMULSIFICATION OF MD Amarilis CATARACT WITH INTRAOCULAR [address] [facility] [place] [address] Name Type Priority Associated Diagnoses Date/Time CBC WITH DIFF LAB Routine Pre-op exam 04/27/2019 1:34 PM CDT COMP. METABOLIC PANEL LAB Routine Pre-op exam 04/27/2019 1:33 PM CDT (65390) CBC WITH DIFFERENTIAL LAB Routine Pre-op exam 04/27/2019 1:34 PM CDT Health Maintenance Due Date Last Done Comments DTaP,Tdap,and Td Vaccines (1 - Tdap) 12/06/1954 Zoster Recombinant Vaccine (SHINGRIX) (1 of 2) 1986 Osteoporosis Screening 2001 PNEUMOCOCCAL VACCINES 65+ (1 of 2 - PCV13) 2001 INFLUENZA VACCINE (#1) 2019 documented as of this encounter Results Not on filedocumented in this encounter Visit Diagnoses Diagnosis Pre-op exam - Primary Preoperative examination, unspecified documented in this encounter Insurance Payer Benefit Plan / Subscriber ID Effective Phone Address Type Group Dates MEDICARE MEDICARE PART xxxxxxxxxx 2001-Pre [phone] [address] Medicare A & B sent [phone] [id number] ANITHA BOSWELL [phone] [facility] [id number] 2003-Pre [address] Medicare HEALTHCARE HEALTHCARE sent [id number] Supplement MEDICARE [place] SUPPLEMENT ANITHA GARCIAS [id number] documented as of this encounter
--- OUTSIDE RECORDS SUMMARY | 2019-10-17 14:32 | XMS REPORT | Summary of Care ---
:1935 Author Organization [facility] - Health Address [address] [place] [address] Care Team Providers Name Role Phone Yenny Chowdary MD Primary Care Provider Encounter Details Date Type Department Care Team Description 05/06/2019 Orders Only [facility] Doctor Unassigned, No [address] [facility] [place] [address] [address] [facility] [place] [id number] Allergies Active Allergy Reactions Severity Noted Date Comments Codeine Nausea and/or Vomiting 05/01/2019 documented as of this encounter (statuses as of 05/07/2019) Medications Medication Sig Dispensed Refills Start Date [...] as of this encounter (statuses as of 05/07/2019) Active Problems No known active problemsdocumented as [...] filedocumented in this encounter Plan of Treatment Health Maintenance Due Date Last Done Comments DTaP,Tdap,and Td Vaccines (1 - Tdap) 12/06/1954 Zoster Recombinant Vaccine (SHINGRIX) (1 of 2) 1986 Medicare Wellness Visit 2001 Osteoporosis Screening 2001 PNEUMOCOCCAL VACCINES 65+ (1 of 2 - PCV13) 2001 INFLUENZA VACCINE (#1) 2019 documented as of this encounter Implants Implanted Type Area Field Map Editor Device Shelf Model / Serial Identifier Expiration / Lot Date Lens, Jimi #[id number] - [id number] LENS Right: Jimi 10/31/2023 [id number] / Implanted: Qty: 1 on 05/06/2019 by Doug Stephens MD at [facility] Eye [id number] / NA documented as of this encounter Procedures Procedure Name Priority Date/Time Associated Diagnosis Comments DAY SURGERY - ADC Routine 05/06/2019 12:01 AM CDT documented in this encounter Results Not on filedocumented in this encounter Insurance Payer Benefit Plan / Subscriber ID Effective Phone Address Type Group Dates MEDICARE MEDICARE PART xxxxxxxxxx 2001-Pre [phone] [address] Medicare A & B sent [id number] ANITHA BOSWELL [phone] [facility] [id number] 2003-Pre [address] Medicare HEALTHCARE HEALTHCARE sent [id number] Supplement MEDICARE [place] SUPPLEMENT ANITHA GARCIAS [id number] documented as of this encounter
--- OUTSIDE RECORDS SUMMARY | 2019-10-17 14:32 | XMS REPORT | Summary of Care ---
:1935 Author Organization [facility] Address [address] [place] [address] Care Team Providers Name Role Phone Yenny Chowdary MD Primary Care Provider Reason for Visit Reason Comments LAB WORK Auth/Cert Status Reason Specialty Diagnoses / Referred By Referred To Procedures Contact Contact Clinical Medical Diagnoses Combined forms of age-related cataract, right eye [facility] Lab Laboratory Procedures CBC WITH DIFF COMP. METABOLIC PANEL (48075) CBC WITH DIFF [address] [place] [address] Encounter Details Date Type Department Care Team Description 04/27/2019 Extractor Operator Solvent Process Visit [facility] Doug Stephens MD [address] [place] [address] [place] [phone] Pre-op exam (Primary Phlebotomy 1, [facility] Lab Dx) Lab-[address] [place] [address] Allergies Not on Filedocumented as of [...] MD Amarilis CATARACT WITH INTRAOCULAR [address] [facility] [place] [address] Name Type Priority Associated Diagnoses Date/Time CBC WITH DIFF LAB Routine Pre-op exam 04/27/2019 1:34 PM CDT COMP. METABOLIC PANEL LAB Routine Pre-op exam 04/27/2019 1:33 PM CDT ([id number]) CBC WITH DIFFERENTIAL LAB Routine Pre-op exam [...] Group Dates MEDICARE MEDICARE PART xxxxxxxxxx 2001-Pre [phone] [address] Medicare A & B sent [phone] [id number] ANITHA BOSWELL [phone] [facility] [id number] 2003-Pre [address] Medicare HEALTHCARE HEALTHCARE sent [id number] Supplement MEDICARE [place] SUPPLEMENT ANITHA GARCIAS [id number] documented as of this encounter
--- OUTSIDE RECORDS SUMMARY | 2019-10-17 14:32 | XMS REPORT ---
:1935 Author Organization [facility] Address [address] [place] [address] Dr. Cheng [address] [place] [address] Care Team Providers Name Role Phone Unavailable Unavailable Unavailable Problems This patient has no known problems. Allergies, Adverse Reactions, Alerts This patient has no known allergies or adverse reactions. Medications This patient has no known medications.
--- NOTE | 2019-10-17 15:05 | ER ---
Nurse's Notes [facility] Name: Niurka Gomes Age: 83 yrs Sex: Female : 1935 Arrival Date: 10/17/2019 Time: 14:32 Bed 7 Private MD: Diagnosis: Acute bronchitis;Acute serous otitis media Presentation: 10/17 14:57 Presenting complaint: Patient states: cough and congestion x 1 week. Denies fever. ss Transition of care: patient was not received from another setting of care. Resp Distress? No respiratory distress is noted at this time. Onset of symptoms was October 09, 2019. Risk Assessment: Do you want to hurt yourself or someone else? Patient reports no desire to harm self or others. Initial Sepsis Screen: Does the patient meet any 2 criteria? No. Patient's initial sepsis screen is negative. Does the patient have a suspected source of infection? No. Patient's initial sepsis screen is negative. Care prior to arrival: None. 14:57 Method Of Arrival: Ambulatory ss 14:57 Acuity: YESENIA 3 ss Historical: - Allergies: 14:58 codeine sulfate (Unknown reaction, Vomiting, Upset stomach); ss - PMHx: 14:58 Arthritis; Gout; Hypertension; irregular HR; ss - PSHx: 14:58 BACK SURGERY; ss - Immunization history:: Adult Immunizations up to date. - Coronavirus screen:: The patient has NOT traveled to [place] in the past 14 days. Proceed with normal triage process as indicated. - Social history:: Smoking status: Patient denies any tobacco usage or history of. - Ebola Screening: : Patient denies exposure to infectious person Patient denies travel to an Ebola-affected area in the 21 days before illness onset. Screenin:17 Abuse screen: Denies threats or abuse. Nutritional screening: No deficits noted. em Tuberculosis screening: No symptoms or risk factors identified. Fall Risk None identified. Assessment: 15:25 General: Appears in no apparent distress. comfortable, Behavior is calm, cooperative, em appropriate for age, Denies fever. Pain: Denies pain. Neuro: Level of Consciousness is awake, alert, obeys commands, Oriented to person, place, time, situation, Appropriate for age. Cardiovascular: Denies chest pain, Capillary refill < 3 seconds Patient's skin is warm and dry. Respiratory: Airway is patent Respiratory effort is even, unlabored, Respiratory pattern is regular, symmetrical, Breath sounds are clear bilaterally. Derm: Skin is intact, is healthy with good turgor, Skin is pink, warm \\T\\ dry. Musculoskeletal: Capillary refill < 3 seconds, Range of motion: intact in all extremities. 15:35 Reassessment: pt adamant on getting shot of antibiotics, provider notified, pt states, em "It cost money to get medications." pt given a [employer] card and showed pt on phone that [facility] has prescription available for $7.45, pt verbalizes understanding and agreed to take PO medication. Vital Signs: 14:56 BP 184 / 91; Pulse 79; Resp 23; Temp 98.5(TE); Pulse Ox 100% on R/A; Weight 105.69 kg; ss Height 5 ft. 5 in. (165.10 cm); Pain 0/10; 15:30 BP 174 / 91; Pulse 69; Resp 16; Pulse Ox 98% on R/A; em 14:56 Body Mass Index 38.77 (105.69 kg, 165.10 cm) ss 15:30 report she has not had any of her medication today because she is ill em ED Course: 14:32 Patient arrived in ED. mr 14:56 Hi Sinclair, RN is Primary Nurse. em 14:56 Arm band placed on right wrist. ss 14:58 Triage completed. ss 14:58 Sil[facility] Pacheco [facility]-C [facility] snw 14:58 Wilner Gordillo MD is Attending Physician. snw 15:17 Patient has correct armband on for positive identification. Bed in low position. Call em light in reach. Adult w/ patient. Pulse ox on. NIBP on. 16:07 No provider procedures requiring assistance completed. Patient did not have IV access em during this emergency room visit. Administered Medications: 15:40 Drug: LevaQUIN 500 mg Route: PO; em 15:50 Follow up: Response: No adverse reaction em Outcome: 15:04 Discharge ordered by . snw 16:07 Discharged to home via wheelchair, with family. em 16:07 Condition: good 16:07 Discharge instructions given to patient, family, Instructed on discharge instructions, follow up and referral plans. medication usage, Demonstrated understanding of instructions, follow-up care, medications, Prescriptions given X 1. 16:07 Patient left the ED. em Signatures: Silvia Pacheco, CLOTH MENDER-C CLOTH MENDER-Csnw Fátima Morel Hi Dominique, YAW RN Laura Liang RN RN ss Corrections: (The following items were deleted from the chart) 15:41 15:30 BP 174 / 91; Pulse 69bpm; Resp 16bpm; Pulse Ox 98% RA; em em 16:08 15:40 Response: No adverse reaction em em
--- NOTE | 2019-10-17 15:05 | EDPHYS ---
Physician Documentation [facility] Name: Niurka Gomes Age: 83 yrs Sex: Female : 1935 Arrival Date: 10/17/2019 Time: 14:32 Bed 7 Private MD: ED Physician Wilner Gordillo HPI: 10/17 15:09 This 83 yrs old Black Female presents to ER via Ambulatory with complaints of Cough, snw Congestion. 15:09 The patient or guardian reports cough. Onset: The symptoms/episode began/occurred snw suddenly, 1 week(s) ago, and became persistent. Severity of symptoms: At their worst the symptoms were moderate. Associated signs and symptoms: Pertinent negatives: chest pain, diarrhea, fever, vomiting. It is unknown whether or not the patient has had similar symptoms in the past. It is unknown whether or not the patient has recently seen a physician, sees Dr. Chowdary. Historical: - Allergies: 14:58 codeine sulfate (Unknown reaction, Vomiting, Upset stomach); ss - PMHx: 14:58 Arthritis; Gout; Hypertension; irregular HR; ss - PSHx: 14:58 BACK SURGERY; ss - Immunization history:: Adult Immunizations up to date. - Coronavirus screen:: The patient has NOT traveled to [place] in the past 14 days. Proceed with normal triage process as indicated. - Social history:: Smoking status: Patient denies any tobacco usage or history of. - Ebola Screening: : Patient denies exposure to infectious person Patient denies travel to an Ebola-affected area in the 21 days before illness onset. ROS: 15:05 Constitutional: Negative for fever, chills, and weight loss, Eyes: Negative for injury, snw pain, redness, and discharge, ENT: Negative for injury, pain, and discharge, Neck: Negative for injury, pain, and swelling, Cardiovascular: Negative for chest pain, palpitations, and edema, Abdomen/GI: Negative for abdominal pain, nausea, vomiting, diarrhea, and constipation, Back: Negative for injury and pain, : Negative for injury, bleeding, discharge, and swelling, MS/Extremity: Negative for injury and deformity, Skin: Negative for injury, rash, and discoloration, Neuro: Negative for headache, weakness, numbness, tingling, and seizure. 15:05 Respiratory: Positive for cough, with white sputum. Exam: 15:05 Constitutional: This is a well developed, well nourished patient who is awake, alert, snw and in no acute distress. Head/Face: Normocephalic, atraumatic. Eyes: Pupils equal round and reactive to light, extra-ocular motions intact. Lids and lashes normal. Conjunctiva and sclera are non-icteric and not injected. Cornea within normal limits. Periorbital areas with no swelling, redness, or edema. Neck: Trachea midline, no thyromegaly or masses palpated, and no cervical lymphadenopathy. Supple, full range of motion without nuchal rigidity, or vertebral point tenderness. No Meningismus. Chest/axilla: Normal chest wall appearance and motion. Nontender with no deformity. No lesions are appreciated. Cardiovascular: Regular rate and rhythm with a normal S1 and S2. No gallops, murmurs, or rubs. Normal PMI, no JVD. No pulse deficits. Respiratory: Lungs have equal breath sounds bilaterally, clear to auscultation and percussion. No rales, rhonchi or wheezes noted. No increased work of breathing, no retractions or nasal flaring. Abdomen/GI: Soft, non-tender, with normal bowel sounds. No distension or tympany. No guarding or rebound. No evidence of tenderness throughout. Back: No spinal tenderness. No costovertebral tenderness. Full range of motion. Skin: Warm, dry with normal turgor. Normal color with no rashes, no lesions, and no evidence of cellulitis. MS/ Extremity: Pulses equal, no cyanosis. Neurovascular intact. Full, normal range of motion. Neuro: Awake and alert, GCS 15, oriented to person, place, time, and situation. Cranial nerves II-XII grossly intact. Motor strength 5/5 in all extremities. Sensory grossly intact. Cerebellar exam normal. Normal gait. Psych: Awake, alert, with orientation to person, place and time. Behavior, mood, and affect are within normal limits. 15:05 ENT: TM's: erythema, that is mild, on the left, Nose: is normal, Mouth: is normal, Voice: is normal. Vital Signs: 14:56 BP 184 / 91; Pulse 79; Resp 23; Temp 98.5(TE); Pulse Ox 100% on R/A; Weight 105.69 kg; ss Height 5 ft. 5 in. (165.10 cm); Pain 0/10; 15:30 BP 174 / 91; Pulse 69; Resp 16; Pulse Ox 98% on R/A; em 14:56 Body Mass Index 38.77 (105.69 kg, 165.10 cm) ss 15:30 report she has not had any of her medication today because she is ill em MDM: 14:58 Patient medically screened. snw 15:08 Differential Diagnosis: Bronchitis Influenza Upper Respiratory Infection Sinusitis snw Pharyngitis Otitis Media Allergic Rhinitis Viral Syndrome Pneumonia. Data reviewed: vital signs, nurses notes. Data interpreted: Pulse oximetry: on room air is 100 %. Interpretation: normal. Counseling: I had a detailed discussion with the patient and/or guardian regarding: the historical points, exam findings, and any diagnostic results supporting the discharge/admit diagnosis, the presence of at least one elevated blood pressure reading (>120/80) during this emergency department visit, the need for outpatient follow up, to return to the emergency department if symptoms worsen or persist or if there are any questions or concerns that arise at home. Special discussion: I have referred the patient to see his PCP for further evaluation of high blood pressure. Based on the history and exam findings, there is no indication for further emergent testing or inpatient evaluation. I discussed with the patient/guardian the need to see the primary care provider for further evaluation of the symptoms. Administered Medications: 15:40 Drug: LevaQUIN 500 mg Route: PO; em 15:50 Follow up: Response: No adverse reaction em Disposition: 10/17/19 15:04 Discharged to Home. Impression: Acute bronchitis, Acute serous otitis media. - Condition is Stable. - Discharge Instructions: Acute Bronchitis, Adult, Otitis Media, Adult, Cough, Adult. - Prescriptions for Levaquin 500 mg Oral Tablet - take 1 tablet by ORAL route once daily for 7 days; 7 tablet. - Medication Reconciliation Form, Thank You Letter, Antibiotic Education, Prescription Opioid Use form. - Follow up: Emergency Department; When: As needed; Reason: Worsening of condition. Follow up: Private Physician; When: 2 - 3 days; Reason: Recheck today's complaints, Continuance of care, Re-evaluation by your physician. Addendum: 10/19/2019 08:23 Co-signature as Attending Physician, Wilner Gordillo MD I agree with the assessment and c martinez plan of care. Signatures: Wilner Gordillo MD MD cha Therrien, Shelly, FILLING HAND-C FILLING HAND-Csnw Hi Sinclair, RN RN Laura Liang RN RN ss Corrections: (The following items were deleted from the chart) 10/17 16:07 15:04 10/17/2019 15:04 Discharged to Home. Impression: Acute bronchitis; Acute serous em otitis media. Condition is Stable. Forms are Medication Reconciliation Form, Thank You Letter, Antibiotic Education, Prescription Opioid Use. Follow up: Emergency Department; When: As needed; Reason: Worsening of condition. Follow up: Private Physician; When: 2 - 3 days; Reason: Recheck today's complaints, Continuance of care, Re-evaluation by your physician. snw
[2019-10-17] MEDS ORDERED: levoFLOXacin 500 MG TAB ONE (15:15)
[2019-10-17 16:13] VITALS: TEMP 98.5
[2019-10-17 16:14] VITALS: BP 174/91; O2SAT 98
== END 2019-10-17 16:07 | disposition home or self-care (01) ==
LOC: ER 14:30
DX: J20.9 Acute bronchitis, unspecified (principal); H65.02 Acute serous otitis media, left ear
CPT/HCPCS: 99283

== ENCOUNTER 2020-02-21 19:29 | Observation (INO) | payer OTHER, MEDICARE ==
--- OUTSIDE RECORDS SUMMARY | 2020-02-21 19:32 | XMS REPORT | Continuity of Care Document ---
:1935 Author Organization [facility] t Address [address] [place] [address] [address]. [address] [place] [address] Care Team Providers Name Role Phone Angelo ROQUE, A Attending Clinician Doctor Unassigned, Name Attending Clinician Unavailable 1, Lab Attending Clinician Unavailable Angelo ROQUE, A Admitting Clinician Problems This patient has no known problems. Allergies, Adverse Reactions, Alerts This patient has no known allergies or adverse reactions. Medications This patient has no known medications. Procedures This patient has no known procedures. Encounters Start End Encounter Admission Attending Care Care Encounter Source Date/Time Date/Time Type Type Clinicians Facility Department ID 2019-05-06 2019-05-06 [facility] Angelo [facility] [id number] 09:46:00 13:14:00 Encounter Doug Anthony [id number] [place] [id number] [facility] [id number] Center [id number] 2019-05-06 2019-05-06 Orders Doctor HERRERA [id number] 00:00:00 00:00:00 Only Unassigned, LAURITA [id number] [place] [facility] [id number] 2019-04-27 2019-04-27 [place] Operator 1, Ad[facility] Lab [facility] [id number] 13:06:03 14:02:29 Visit Gabrielle [id number] [place] [id number] [place] [id number] Results This patient has no known results.
--- NOTE | 2020-02-21 20:21 | ER ---
Nurse's Notes [facility] Name: Niurka Gomes Age: 84 yrs Sex: Female : 1935 Arrival Date: 02/21/2020 Time: 19:35 Bed 7 Private MD: Diagnosis: Weakness;Fever, unspecified;Hypoxemia;Pneumonia due to other specified bacteria;Urinary tract infection, site not specified;Nausea;Unspecified kidney failure-acute on chronic Presentation: 02/20 19:42 Chief complaint: EMS states: GENERALIZED WEAKNESS AND COUGH FOR TWO DAYS. WITH FEVER rv TODAY AT 102F. DENIES SOB, CHEST PAIN, OR GI SYMPTOMS. GCS 15, ABLE TO MOVE ALL EXTREMITIES. NO DYSPHAGIA OR SPEECH PROBLEMS. Coronavirus screen: Surgical mask placed on patient. Patient moved to private room, placed in contact and droplet isolation with eye protection until further assessment. Patient reports a cough. Patient denies shortness of breath or difficulty breathing. Patient reports a measured and/or subjective temperature greater than 100.4F. Patient denies travel on a cruise ship or to a country the [facility] currently lists as an affected area. Patient denies contact with known and/or suspected case of COVID-19. Ebola Screen: No symptoms or risks identified at this time. Initial Sepsis Screen: Does the patient meet any 2 criteria? No. Patient's initial sepsis screen is negative. Does the patient have a suspected source of infection? Yes: Productive cough/pneumonia. Risk Assessment: Do you want to hurt yourself or someone else? Patient reports no desire to harm self or others. Onset of symptoms was February 19, 2020. 19:42 Method Of Arrival: EMS: [facility] rv 19:42 Acuity: YESENIA 3 rv Triage Assessment: 19:45 General: Appears comfortable, Behavior is calm, cooperative. Pain: Denies pain. EENT: rv No signs and/or symptoms were reported regarding the EENT system. Neuro: Level of Consciousness is awake, alert, obeys commands, Oriented to person, place, time, situation. Cardiovascular: Patient's skin is warm and dry. Respiratory: Airway is patent Respiratory effort is even, unlabored, Respiratory pattern is regular, symmetrical. Derm: Skin is intact. Historical: - Allergies: 19:45 codeine sulfate (Unknown reaction, Vomiting, Upset stomach); rv - PMHx: 19:45 Arthritis; Gout; Hypertension; irregular HR; rv - PSHx: 19:45 NECK AND BACK SURGERY; rv - Immunization history:: Adult Immunizations up to date. - Social history:: Smoking status: Patient denies any tobacco usage or history of. - Family history:: not pertinent. Screenin:46 Abuse screen: Denies threats or abuse. Denies injuries from another. Nutritional rv screening: No deficits noted. Tuberculosis screening: No symptoms or risk factors identified. Fall Risk None identified. Assessment: 02/21 00:07 Reassessment: still awaiting floor nurse to call back for report. rv Vital Signs: 02/20 19:42 BP 116 / 56; Pulse 74; Resp 18; Temp 99.8; Pulse Ox 94% on R/A; Weight 105.23 kg; rv Height 5 ft. 5 in. (165.10 cm); Pain 0/10; 20:30 BP 97 / 77; Pulse 74; Resp 17; Pulse Ox 98% on R/A; rv 20:59 BP 108 / 55; Pulse 70; Resp 17; Pulse Ox 97% on R/A; rv 21:57 BP 112 / 62; Pulse 67; Resp 24; Pulse Ox 95% on R/A; rv 22:00 Temp 98.8(O); oe 23:00 BP 123 / 65; Pulse 65; Resp 18; Pulse Ox 96% on R/A; rv 02/21 00:00 BP 128 / 85; Pulse 64; Resp 16; Pulse Ox 96% on R/A; rv 01:00 BP 137 / 77; Pulse 64; Resp 18; Pulse Ox 96% on R/A; rv 01:15 BP 125 / 85; Pulse 66; Resp 16; Pulse Ox 96% on R/A; rv 02/20 19:42 Body Mass Index 38.61 (105.23 kg, 165.10 cm) rv ED Course: 02/20 19:35 Patient arrived in ED. sg 19:37 Wilner Gordillo MD is Attending Physician. magan 19:42 Jelani Everett RN is Primary Nurse. rv 19:45 Triage completed. rv 19:46 Arm band placed on Patient placed in the treatment room, on a stretcher, Patient rv notified of wait time. 19:47 Patient has correct armband on for positive identification. Pulse ox on. NIBP on. rv 20:09 Inserted saline lock: 20 gauge in right antecubital area, using aseptic technique. rv Blood collected. 20:15 Initial lab(s) drawn, by me, sent to lab. First set of blood cultures drawn by me. rv 20:18 Gilles De Jesus MD is Hospitalizing Provider. magan 20:31 XRAY Chest (1 view) In Process Unspecified. EDMS 20:35 No provider procedures requiring assistance completed. Second set of blood cultures rv drawn by me. 21:59 IV is patent, with fluids infusing freely, with good blood return, Patient admitted, IV rv remains in place. Administered Medications: 20:15 Drug: NS 0.9% 1000 ml Route: IV; Rate: 1 bolus; Site: right antecubital; rv 21:42 Follow up: IV Status: Completed infusion; IV Intake: 1000ml rv 20:15 Drug: NS 0.9% 1000 ml Route: IV; Rate: 125 ml/hr; Site: right antecubital; rv 21:43 Follow up: IV Status: IV converted to saline lock rv 20:30 Drug: Tylenol 650 mg Route: PO; rv 21:42 Follow up: Response: Temperature is decreased rv 20:40 Drug: Zosyn 3.375 grams Route: IVPB; Infused Over: 60 mins; Site: right antecubital; rv 21:42 Follow up: IV Status: Completed infusion; IV Intake: 100ml rv 20:57 CANCELLED (changed to PO): Tylenol Suppository 650 mg AL once rv Intake: 21:42 IV: 100ml; Total: 100ml. rv 21:42 IV: 1000ml; Total: 1100ml. rv Outcome: 20:19 Decision to Hospitalize by Provider. magan 21:58 Admitted to Tele accompanied by [facility], via stretcher, room 403, Report called to MICHAEL bendre RN 21:58 Condition: good 21:58 Instructed on the need for admit, Demonstrated understanding of instructions. 02/21 01:40 Patient left the ED. rv Signatures: Dispatcher [employer] Waldo Pino, RN RN Wilner Teixeira MD MD cha Espinosa, Orlando oe Vicente, Ronaldo RN RN rv Corrections: (The following items were deleted from the chart) 02/20 20:56 20:30 Tylenol Suppository 650 mg AL rv rv
--- NOTE | 2020-02-21 20:22 | EDPHYS ---
Physician Documentation [facility] Name: Niurka Gomes Age: 84 yrs Sex: Female : 1935 Arrival Date: 02/21/2020 Time: 19:35 Bed 7 Private MD: ED Physician Wilner Gordillo HPI: 02/20 20:11 This 84 yrs old Black Female presents to ER via EMS with complaints of General magan Weakness, Fever. 20:11 The patient reports fever, that was measured at 101 degrees Fahrenheit. Onset: The magan symptoms/episode began/occurred 2 day(s) ago. Modifying factors: there are no obvious modifying factors. Associated signs and symptoms: Pertinent positives: abdominal pain. 20:12 weak, cough , fever. The patient or guardian reports cough. Severity of symptoms: At magan their worst the symptoms were mild, moderate, in the emergency department the symptoms are unchanged. Modifying factors: The symptoms are alleviated by nothing, the symptoms are aggravated by nothing. Associated signs and symptoms: Pertinent positives: nausea. Historical: - Allergies: 19:45 codeine sulfate (Unknown reaction, Vomiting, Upset stomach); rv - PMHx: 19:45 Arthritis; Gout; Hypertension; irregular HR; rv - PSHx: 19:45 NECK AND BACK SURGERY; rv - Immunization history:: Adult Immunizations up to date. - Social history:: Smoking status: Patient denies any tobacco usage or history of. - Family history:: not pertinent. ROS: 20:12 Eyes: Negative for injury, pain, redness, and discharge, ENT: Negative for injury, magan pain, and discharge, Neck: Negative for injury, pain, and swelling, Cardiovascular: Negative for chest pain, palpitations, and edema, Back: Negative for injury and pain, : Negative for injury, bleeding, discharge, and swelling, MS/Extremity: Negative for injury and deformity, Skin: Negative for injury, rash, and discoloration, Neuro: Negative for headache, weakness, numbness, tingling, and seizure, Psych: Negative for depression, anxiety, suicide ideation, homicidal ideation, and hallucinations, Allergy/Immunology: Negative for hives, rash, and allergies, Endocrine: Negative for neck swelling, polydipsia, polyuria, polyphagia, and marked weight changes, Hematologic/Lymphatic: Negative for swollen nodes, abnormal bleeding, and unusual bruising. 20:12 Constitutional: Positive for fever. 20:12 Respiratory: Positive for cough, shortness of breath, at rest. 20:12 Abdomen/GI: Positive for abdominal pain, nausea. Exam: 20:12 Constitutional: This is a well developed, well nourished patient who is awake, alert, magan and in no acute distress. Head/Face: Normocephalic, atraumatic. Eyes: Pupils equal round and reactive to light, extra-ocular motions intact. Lids and lashes normal. Conjunctiva and sclera are non-icteric and not injected. Cornea within normal limits. Periorbital areas with no swelling, redness, or edema. ENT: Nares patent. No nasal discharge, no septal abnormalities noted. Tympanic membranes are normal and external auditory canals are clear. Oropharynx with no redness, swelling, or masses, exudates, or evidence of obstruction, uvula midline. Mucous membranes moist. Neck: Trachea midline, no thyromegaly or masses palpated, and no cervical lymphadenopathy. Supple, full range of motion without nuchal rigidity, or vertebral point tenderness. No Meningismus. Chest/axilla: Normal chest wall appearance and motion. Nontender with no deformity. No lesions are appreciated. Cardiovascular: Regular rate and rhythm with a normal S1 and S2. No gallops, murmurs, or rubs. Normal PMI, no JVD. No pulse deficits. Respiratory: Lungs have equal breath sounds bilaterally, clear to auscultation and percussion. No rales, rhonchi or wheezes noted. No increased work of breathing, no retractions or nasal flaring. Abdomen/GI: Soft, non-tender, with normal bowel sounds. No distension or tympany. No guarding or rebound. No evidence of tenderness throughout. Back: No spinal tenderness. No costovertebral tenderness. Full range of motion. Skin: Warm, dry with normal turgor. Normal color with no rashes, no lesions, and no evidence of cellulitis. MS/ Extremity: Pulses equal, no cyanosis. Neurovascular intact. Full, normal range of motion. Psych: Awake, alert, with orientation to person, place and time. Behavior, mood, and affect are within normal limits. 20:12 Neuro: Orientation: is normal, appropriate for stated age, no acute changes, Mentation: is normal, appropriate for stated age, no acute changes, Memory: is normal, appropriate for stated age, no acute changes, Cranial nerves: grossly normal, is grossly normal based on the patient's age, no acute changes, Cerebellar function: is grossly normal, is grossly normal based on the patient's age, no acute changes, Motor: is normal, is grossly normal based on the patient's age, no acute changes, moves all fours, strength is normal, Sensation: is normal, no obvious gross deficits, appropriate Gait: not applicable Deep tendon reflexes are 1 (trace) + in the bilateral brachioradialis, bicep, tricep and patellar and Achilles tendons, seizure activity, is not displayed by the patient. Vital Signs: 19:42 BP 116 / 56; Pulse 74; Resp 18; Temp 99.8; Pulse Ox 94% on R/A; Weight 105.23 kg; rv Height 5 ft. 5 in. (165.10 cm); Pain 0/10; 20:30 BP 97 / 77; Pulse 74; Resp 17; Pulse Ox 98% on R/A; rv 20:59 BP 108 / 55; Pulse 70; Resp 17; Pulse Ox 97% on R/A; rv 21:57 BP 112 / 62; Pulse 67; Resp 24; Pulse Ox 95% on R/A; rv 22:00 Temp 98.8(O); oe 23:00 BP 123 / 65; Pulse 65; Resp 18; Pulse Ox 96% on R/A; rv 02/21 00:00 BP 128 / 85; Pulse 64; Resp 16; Pulse Ox 96% on R/A; rv 01:00 BP 137 / 77; Pulse 64; Resp 18; Pulse Ox 96% on R/A; rv 01:15 BP 125 / 85; Pulse 66; Resp 16; Pulse Ox 96% on R/A; rv 02/20 19:42 Body Mass Index 38.61 (105.23 kg, 165.10 cm) rv MDM: 02/20 19:37 Patient medically screened. [facility] 20:16 Data reviewed: vital signs, nurses notes, lab test result(s), EKG, radiologic studies, [facility] CT scan, plain films. 20:16 Differential diagnosis: viral Infection, bacterial infection, URI, bronchitis, magan pneumonia UTI, gastroenteritis. Differential Diagnosis altered mental status, sepsis, flu, Bronchitis Influenza Upper Respiratory Infection Pharyngitis Viral Syndrome Pneumonia. Data interpreted: ekg monitor tech: rate is 74 beats/min, Pulse oximetry: on room air is 94 %. Test interpretation: by ED physician or midlevel provider: ECG, plain radiologic studies. Counseling: I had a detailed discussion with the patient and/or guardian regarding: the historical points, exam findings, and any diagnostic results supporting the discharge/admit diagnosis, lab results, radiology results, the need for outpatient follow up, the need for further work-up and treatment in the hospital. 02/20 20:11 Order name: Basic Metabolic Panel [facility] 02/20 20:11 Order name: CBC with Diff [facility] 02/20 20:11 Order name: LFT's [facility] 02/20 20:11 Order name: Magnesium; Complete Time: 21:42 [facility] 02/20 20:11 Order name: NT PRO-BNP; Complete Time: 21:42 [facility] 02/20 20:11 Order name: PT-INR; Complete Time: 21:42 [facility] 02/20 20:11 Order name: Troponin (emerg Dept Use Only); Complete Time: 21:42 [facility] 02/20 20:11 Order name: Lipase; Complete Time: 21:42 [facility] 02/20 20:11 Order name: Blood Culture Adult (2) [facility] 02/20 20:11 Order name: Urine Culture [facility] 02/20 20:11 Order name: Lactate; Complete Time: 21:42 [facility] 02/20 20:11 Order name: Procalcitonin; Complete Time: 21:42 [facility] 02/20 20:11 Order name: Influenza Screen (a \T\ B); Complete Time: 21:42 [facility] 02/20 20:13 Order name: Basic Metabolic Panel; Complete Time: 21:42 [facility] 02/20 20:11 Order name: XRAY Chest (1 view); Complete Time: 21:42 [facility] 02/20 20:13 Order name: CBC with Automated Diff; Complete Time: 00:25 [facility] 02/20 20:13 Order name: Liver (Hepatic) Function; Complete Time: 21:42 [facility] 02/20 21:15 Order name: CBC with Automated Diff [facility] 02/20 21:15 Order name: CBC with Automated Diff [facility] 02/20 21:15 Order name: Comprehensive Metabolic Panel [facility] 02/20 21:15 Order name: Comprehensive Metabolic Panel [facility] 02/20 21:15 Order name: Urinalysis W/Microscopic [facility] 02/20 21:55 Order name: CBC Smear Scan; Complete Time: 00:25 [facility] 02/21 01:04 Order name: Flu 02/21 01:04 Order name: Strep 02/21 01:04 Order name: COVID-19 02/20 20:11 Order name: EKG; Complete Time: 20:14 [facility] 02/20 20:11 Order name: Cardiac monitoring; Complete Time: 20:58 [facility] 02/20 20:11 Order name: EKG - Nurse/Tech; Complete Time: 20:58 [facility] 02/20 20:11 Order name: IV Saline Lock; Complete Time: 20:58 [facility] 02/20 20:11 Order name: Labs collected and sent; Complete Time: 20:59 [facility] 02/20 20:11 Order name: O2 Per Protocol; Complete Time: 20:59 [facility] 02/20 20:11 Order name: O2 Sat Monitoring; Complete Time: 20:59 [facility] 02/20 20:11 Order name: Urine Dipstick-Ancillary (obtain specimen); Complete Time: 01:40 [facility] 02/20 21:14 Order name: CONS Pharmacy Consult [facility] 02/20 21:14 Order name: NPO [facility] Administered Medications: 20:15 Drug: NS 0.9% 1000 ml Route: IV; Rate: 1 bolus; Site: right antecubital; rv 21:42 Follow up: IV Status: Completed infusion; IV Intake: 1000ml rv 20:15 Drug: NS 0.9% 1000 ml Route: IV; Rate: 125 ml/hr; Site: right antecubital; rv 21:43 Follow up: IV Status: IV converted to saline lock rv 20:30 Drug: Tylenol 650 mg Route: PO; rv 21:42 Follow up: Response: Temperature is decreased rv 20:40 Drug: Zosyn 3.375 grams Route: IVPB; Infused Over: 60 mins; Site: right antecubital; rv 21:42 Follow up: IV Status: Completed infusion; IV Intake: 100ml rv 20:57 CANCELLED (changed to PO): Tylenol Suppository 650 mg IA once rv Disposition: 02/21/20 20:19 Hospitalization ordered by Gilles De Jesus for Inpatient Admission. Preliminary diagnosis are Weakness, Fever, unspecified, Hypoxemia, Pneumonia due to other specified bacteria, Urinary tract infection, site not specified, Nausea, Unspecified kidney failure - acute on chronic. - Bed requested for Telemetry/MedSurg (Inpatient). - Status is Inpatient Admission. rv - Condition is Fair. - Problem is new. - Symptoms have improved. Signatures: Dispatcher [employer] EDMS Lily Monet RN RN mw Anderson, Corey, MD MD cha Vicente, Ronaldo, RN RN rv Corrections: (The following items were deleted from the chart) 20:20 20:19 Hospitalization Ordered by Gilles De Jesus MD for Inpatient Admission. Preliminary magan diagnosis is Weakness; Fever, unspecified; Hypoxemia; Pneumonia due to other specified bacteria. Bed requested for Telemetry/MedSurg (Inpatient). Status is Inpatient Admission. Condition is Fair. Problem is new. Symptoms have improved. magan 20:48 20:20 02/21/2020 20:19 Hospitalization Ordered by Gilles De Jesus MD for Inpatient mw Admission. Preliminary diagnosis is Weakness; Fever, unspecified; Hypoxemia; Pneumonia due to other specified bacteria; Urinary tract infection, site not specified; Nausea. Bed requested for Telemetry/MedSurg (Inpatient). Status is Inpatient Admission. Condition is Fair. Problem is new. Symptoms have improved. magan 20:57 20:11 Tylenol Suppository 650 mg IA once ordered. magan rv 20:57 20:56 Tylenol Suppository 650 mg IA once given. rv rv 20:57 20:56 Tylenol Suppository 650 mg IA once ordered. rv rv 02/21 00:28 02/20 20:48 02/21/2020 20:19 Hospitalization Ordered by Gilles De Jesus MD for Inpatient magan Admission. Preliminary diagnosis is Weakness; Fever, unspecified; Hypoxemia; Pneumonia due to other specified bacteria; Urinary tract infection, site not specified; Nausea. Bed requested for Telemetry/MedSurg (Inpatient). Status is Inpatient Admission. Condition is Fair. Problem is new. Symptoms have improved. mw 02/21 01:40 00:28 02/21/2020 20:19 Hospitalization Ordered by Gilles De Jesus MD for Inpatient rv Admission. Preliminary diagnosis is Weakness; Fever, unspecified; Hypoxemia; Pneumonia due to other specified bacteria; Urinary tract infection, site not specified; Nausea; Unspecified kidney failure - acute on chronic. Bed requested for Telemetry/MedSurg (Inpatient). Status is Inpatient Admission. Condition is Fair. Problem is new. Symptoms have improved. magan
[2020-02-21 20:30] LABS: Protime INR 1.11
[2020-02-21] MEDS ORDERED: PIPER/TAZO/NS 3.375gm 3.375 GM/100 ML BAG ONE (20:31)
[2020-02-21] MEDS ORDERED: ACETAMINOPHEN 325 MG TABLET ONE (20:31)
[2020-02-21] MEDS ORDERED: NA CHLORIDE 0.9% 2,000 ML ONE (20:31)
[2020-02-21 20:32] LABS: Absolute Lymphocytes (CBC) 1.6 K/uL (0.7-4.9); Basophils % 0.8 % (0-1.3); Hematocrit 40.7 % (36.0-45.0); MPV 9.3 fL (7.6-11.3); RBC Red Blood Cell Count 4.69 M/uL (3.86-4.86)
--- NOTE | 2020-02-21 20:38 | RAD REPORT ---
EXAM DESCRIPTION: Jerry Single View02/21/2020 8:30 pm CLINICAL HISTORY: cough COMPARISON: 2018 FINDINGS: The lungs appear clear of acute infiltrate. The heart is mildly enlarged IMPRESSION: No acute abnormalities displayed
[2020-02-21 20:48] LABS: ALT/SGPT 17 U/L (12-78); AST/SGOT 21 U/L (15-37); Albumin 3.5 g/dL (3.4-5.0); Alkaline Phosphatase 76 U/L (45-117); BUN Blood Urea Nitrogen 32 mg/dL (7-18); Bicarbonate 25 mmol/L (21-32); Bilirubin Direct 0.1 mg/dL (0-0.2); Bilirubin Total 0.5 mg/dL (0.2-1.0); Glucose Level 121 mg/dL (74-106); Lipase 121 U/L (73-393); Magnesium 2.3 mg/dL (1.8-2.4); NT PRO-BNP 491 pg/mL (<450); Potassium 4.8 mmol/L (3.5-5.1); Protein, Total 8.5 g/dL (6.4-8.2); Sodium Level 136 mmol/L (136-145); Troponin (Emerg Dept Use Only) < 0.02 ng/mL (0.0-0.045)
[2020-02-21] MEDS ORDERED: ONDANSETRON 4 MG/2 ML VIAL IV PRN (21:12)
[2020-02-21] MEDS ORDERED: ACETAMINOPHEN 500 MG TAB PO PRN (21:12)
[2020-02-21] MEDS ORDERED: MORPHINE 2 MG/ML SYR IV PRN (21:12)
[2020-02-21 21:55] LABS: Blood Morphology Comment NOT SEEN (NOT SEEN); Platelet Estimate ADEQ; Urine White Blood Cell Casts OK
[2020-02-21] MEDS ORDERED: CEFTRIAXONE 1 GM/NS 50 ML 1 GM/50 ML BAG IV SCH (23:00)
[2020-02-22] MEDS: NA CHLORIDE 0.9% 1,000 ML IV SCH ×2 (02:08→09:28)
[2020-02-22 02:12] VITALS: BMI 38.7
[2020-02-22] MEDS: CEFTRIAXONE/SWI 1gm 1 GM/10 ML SYR IVP SCH ×2 (02:14→14:28)
[2020-02-22 03:07] LABS: Urine Appearance CLEAR; Urine Bilirubin NEGATIVE (NEG); Urine Blood NEGATIVE (NEG); Urine Color YELLOW; Urine Glucose NEGATIVE (NEG); Urine Protein 2+ (NEG); Urine Urobilinogen 0.2 mg/dL (0.2-1.0)
[2020-02-22 03:11] LABS: Urine Microscopic Reflex ORDER UMIC
[2020-02-22 03:47] LABS: Urine Bacteria <20 /HPF (<20); Urine Culture Reflex Order NOT NEEDED; Urine RBC <5 /HPF (NONE SEEN)
[2020-02-22 04:30] LABS: Absolute Lymphocytes (CBC) 2.2 K/uL (0.7-4.9); Basophils % 0.6 % (0-1.3); Hematocrit 37.9 % (36.0-45.0); Lymphocytes % 34.7 % (15.3-44.8); MPV 9.7 fL (7.6-11.3); RBC Red Blood Cell Count 4.41 M/uL (3.86-4.86)
[2020-02-22 04:48] LABS: Bilirubin Total 0.6 mg/dL (0.2-1.0); Potassium 4.6 mmol/L (3.5-5.1); Protein, Total 7.3 g/dL (6.4-8.2)
[2020-02-22] MEDS ORDERED: dexAMETHasone 4 MG/ML VIAL IV ONE (07:06)
--- NOTE | 2020-02-22 07:11 | P.HP ---
Certification for Inpatient Patient admitted to: Observation With expected LOS: <2 Midnights Patient will require the following post-hospital care: None Practitioner: I am a practitioner with admitting privileges, knowledge of patient current condition, hospital course, and medical plan of care. Services: Services provided to patient in accordance with Admission requirements found in Title 42 Section 412.3 of the Code of Federal Regulations Patient History Date of Service: 02/22/20 Reason for admission: Generalized weakness/right knee pain History of Present Illness: Patient is an 84-year-old female with difficulty hearing, who has a history of gout and osteoarthritis along with hypertension, and she presented to the hospital with inability to ambulate well. She was also having temperature of a 101. She has clinically been if feeling poorly for the last couple of days. She came into the hospital for further evaluation. In the emergency room she was having fevers along with complaints of dysuria. She also had pain in her right knee. Decision was made to admit the patient to the hospital for further evaluation. Allergies codeine [Codeine] Allergy (Verified 11/15/15 08:13) Nausea/Vomiting codeine sulfate Allergy (Uncoded 03/05/16 14:49) Unknown Home Medications: Gabapentin [Neurontin*] 300 mg PO TID 09/02/12 Pantoprazole [Protonix Tab*] 40 mg PO DAILY 09/02/12 allopurinoL [Zyloprim*] 300 mg PO DAILY 09/02/12 Hydrocodone 5/APAP 325 [Valatie 5/325*] 1 tab PO DAILY PRN 10/24/16 Simvastatin [Zocor*] 10 mg PO BEDTIME 10/24/16 Albuterol Sulfate [Albuterol Sulfate 0.083% Neb Soln] 1 vial IH Q4HP PRN 02/22/20 Aspirin [Aspirin EC 81 MG] 81 mg PO DAILY 02/22/20 Carvedilol [Coreg] 25 mg PO BID 02/22/20 Ergocalciferol (Vitamin D2) [Vitamin D2] 50,000 unit PO SEECOM 02/22/20 Hydralazine HCl [Apresoline] 100 mg PO TID 02/22/20 NIFEdipine [Nifedipine ER] 30 mg PO BEDTIME PRN 02/22/20 NIFEdipine [Nifedipine ER] 30 mg PO DAILY 02/22/20 Trazodone [Desyrel*] 50 mg PO BEDTIME 02/22/20 - Past Medical/Surgical History Has patient received pneumonia vaccine in the past: No Diabetic: No -: GOUT -: HTN -: ARTHRITIS -: Carpel tunnel repair -: neck and back sx - Family History Father History Unknown: Yes Medical History: Cancer Mother History Unknown: Yes Medical History: Hypertension - Social History Smoking Status: Never smoker Alcohol use: No CD- Drugs: No Caffeine use: No Place of Residence: Home Review of Systems 10-point ROS is otherwise unremarkable Physical Examination - Vital Signs Temperature: 98.6 F Blood Pressure: 136/61 Pulse: 65 Respirations: 17 Pulse Ox (%): 95 - Physical Exam General: Alert, In no apparent distress, Oriented x3 HEENT: Atraumatic, PERRLA, Mucous membr. moist/pink, EOMI, Sclerae nonicteric Neck: Supple, 2+ carotid pulse no bruit, No LAD, Without JVD or thyroid abnormality Respiratory: Clear to auscultation bilaterally, Normal air movement Cardiovascular: Regular rate/rhythm, Normal S1 S2, No murmurs Gastrointestinal: Normal bowel sounds, Soft and benign, Non-distended, No tenderness Musculoskeletal: No clubbing, Swelling, Tenderness Neurological: Normal speech, Normal tone, Sensation intact, Cranial nerves 3-12 intact, Normal affect, Abnormal gait, Abnormal strength Lymphatics: No axilla or inguinal lymphadenopathy - Studies Laboratory Data (last 24 hrs) 02/21/20 20:15: PT 13.1 H, INR 1.11 02/21/20 20:15: WBC 7.9, Hgb 13.6, Hct 40.7, Plt Count 218 02/21/20 20:15: Sodium 136, Potassium 4.8, BUN 32 H, Creatinine 1.93 H, Glucose 121 H, Magnesium 2.3, Total Bilirubin 0.5, AST 21, ALT 17, Alkaline Phosphatase 76, Lipase 121 Microbiology Data (last 24 hrs): 02/22/20 01:05 Throat Group A Streptococcus Rapid Screen - Final 02/21/20 20:20 Nasopharnyx Influenza Type A Antigen Screen - Final 02/21/20 20:20 Nasopharnyx Influenza Type B Antigen Screen - Final Assessment & Plan - Problems (Diagnosis) (1) Generalized weakness Current Visit: Yes Status: Acute (2) Right knee pain Current Visit: Yes Status: Acute (3) Acute on chronic renal failure Onset Date: 05/16/15 Current Visit: No Status: Acute (4) Gout Onset Date: 05/16/15 Current Visit: No Status: Chronic (5) Hypertension Onset Date: 05/16/15 Current Visit: No Status: Chronic - Plan Plan: 1. IV hydration 2. IV antibiotics 3. Anti-inflammatory for right knee pain 4. Out of bed and ambulate; if difficulty physical therapy consultation 5. UA with microscopy 6. Strict blood pressure control 7. Continue home medication for gout 8. Continue medication for neuropathy 9. GI and DVT prophylaxis Discharge Plan: Home Plan to discharge in: 48 Hours - Advance Directives Does patient have a Living Will: No Does patient have a Durable POA for Healthcare: No - Code Status/Comfort Care Code Status Assessed: Yes Code Status: Full Code Critical Care: No Time Spent Managing PTS Care (In Minutes): 45
[2020-02-22 23:08] LABS: Urine Appearance CLEAR; Urine Bilirubin NEGATIVE (NEG); Urine Blood NEGATIVE (NEG); Urine Color YELLOW; Urine Glucose NEGATIVE (NEG); Urine Protein 2+ (NEG); Urine Specific Gravity 1.015 (1.005-1.030); Urine Urobilinogen 0.2 mg/dL (0.2-1.0)
[2020-02-22 23:24] LABS: Urine Bacteria <20 /HPF (<20); Urine Culture Reflex Order NOT NEEDED; Urine Mucus 1+ /HPF (NONE SEEN); Urine RBC <5 /HPF (NONE SEEN)
[2020-02-23] MEDS: CEFTRIAXONE/SWI 1gm 1 GM/10 ML SYR IVP SCH (04:16)
[2020-02-23] MEDS ORDERED: carvediloL 25 MG TAB PO SCH (06:00)
[2020-02-23 09:09] VITALS: BP 143/80; TEMP 96.9
[2020-02-23 10:10] VITALS: O2SAT 99
--- NOTE | 2020-02-24 01:44 | DS ---
Date of Discharge: 02/23/2020 Discharge Diagnoses: 1. Generalized weakness. 2. Right knee pain. 3. Acute on chronic kidney injury, improved, stage III. 4. Coronavirus disease 2019 positive. 5. Gout, stable. 6. Essential hypertension, stable. 7. Obesity, BMI 38. Hospital Course: Patient is an 84-year-old female with a past medical history of gout and osteoarthritis, hypertension, comes into the hospital for inability to ambulate well. She was also found to have a temperature of 101 and had been complaining of some generalized weakness. Patient is morbidly obese. Right knee pain was reported. Patient was admitted to the hospital. She was screened for COVID and was positive. However, she is asymptomatic other than the generalized weakness. She did not have any pulmonary issues. Her vital signs, she remained afebrile for over 24 hours. She was 99% on room air. Her strep screen was negative. Throat culture grew out normal upper respiratory jose. Her influenza screen was also negative. Urine culture did not show any growth. Blood cultures also did not show any growth. She did have mildly elevated kidney function at 1.93, improved with treatment, now down to 1.79. She does have chronic kidney disease with a baseline of about 1.4. White blood cell count remained normal. There were no signs of sepsis or respiratory distress. The patient's chest x-ray was clear. There is no further reason for the patient to remain hospitalized as she was asymptomatic from her COVID symptoms. She does have home health and which will be resumed upon discharge. She is to continue self isolation at home for at least 14 days and to follow up with her PCP in 2-3 days and return to ER for worsening condition. Diet: Heart healthy. Activity: Fall precautions. The patient encouraged to donate her plasma after recovering from COVID-19. Patient was seen using Telemedicine based on the current COVID-19 outbreak. Current CDC, state and local [facility] guidelines for social distancing and self isolation of positive patients. She was identified in need for health service. Until the health service, the risks, benefits, and alternatives to this virtual video visit were explained to the patient and the patient consented to this modality of care. She was awake, alert, oriented x3. Visit was carried out in a secure line. All parties in the room were identified and approved by the patient prior to the consult. No technical issues were experienced. Level of care equivalent to in-person care was achieved. Patient was seen virtually. Physical exam completed with assistance from the bedside RN. Assessment And Plan: Based upon chart review, HPI, and physical examination findings gathered during the encounter. Every effort has been made to make this in counter comprehensive to the best of our abilities. Physical Examination: General: Awake, alert oriented x3. No acute distress. Obese, elderly female. Respiratory: Does not appear to be in any respiratory distress. No use of accessory muscles. Patient conversing without any difficulty, not on any supplemental oxygen. Neuro: Moves all 4 extremities. Speech is normal. No facial asymmetry. Psych: Mood is okay. Affect is full. Insight and judgment are good. /FIEDLINA Voice ID: [id number] Report ID: [id number] MTDD
== END 2020-02-23 11:28 | disposition home health service (06) ==
LOC: ER 19:29 → 4TH 02-22 01:33
PROVIDERS: ADMIT Hospitalist; ATTEND Family Medicine
DX: U07.1 COVID-19 (principal); M25.561 Pain in right knee; I12.9 Hypertensive chronic kidney disease with stage 1 through stage 4 chronic kidney disease, or unspecified chronic kidney disease; N17.9 Acute kidney failure, unspecified; N18.3 Chronic kidney disease, stage 3 (moderate); M10.9 Gout, unspecified; E66.01 Morbid (severe) obesity due to excess calories; Z68.38 Body mass index [BMI] 38.0-38.9, adult; R94.31 Abnormal electrocardiogram [ECG] [EKG]; M19.90 Unspecified osteoarthritis, unspecified site; Z79.82 Long term (current) use of aspirin; Z79.899 Other long term (current) drug therapy
CPT/HCPCS: 96365; 93005; 87040 ×2; 87070; 87088; 85025 ×2; 81001; 87086; 80048; 36415; 83735; 85610; 80076; 87081; 83605; 84484; 83690; 80053; 84145; 83880; 87804 ×2; 71045; 99285; U0002; J2543; J0696 ×3; J7030 ×3; G0378 ×3; 81003; 81015

== ENCOUNTER 2023-04-07 14:20 | Emergency (ER) | payer OTHER ==
--- OUTSIDE RECORDS SUMMARY | 2023-04-07 14:24 | XMS REPORT | Continuity of Care Document ---
:1935 Author Organization [facility] t Address [address] [facility] [address] [place] [address] Care Team Providers Name Role Phone Epi ROQUE, [facility] Primary Care Physician [id number] Attending Clinician Unavailable THERESA PERALTA Attending Clinician Unavailable AHMET CHEATHAM Attending Clinician Unavailable DO AHMET CHEATHAM Attending Clinician Unavailable Doug Stephens MD Attending Clinician Doctor Unassigned, [place] Attending Clinician Unavailable 1, [facility] Attending Clinician Unavailable [id number] Admitting Clinician Unavailable AHMET CHEATHAM Admitting Clinician Unavailable DO AHMET CHEATHAM Admitting Clinician Unavailable Doug Stephens MD Admitting Clinician Payers Payer Name Policy Type Policy Number Effective Date Expiration Date [facility] [id number] 2022 (MEDICARE 00:00:00 REPLACEMENT HMO) Problems Condition Condition Condition Status Onset Resolution Last Treating Co mments Source Name Details Category Date Date Treatment Clinician Date COVID-19 COVID-19 Disease Active Metho di virus virus 7-02 st infection infection 00:00: Hosp rigo 00 l COVID-19 COVID-19 Disease Active Metho di virus virus 7-01 st detected detected 00:00: Hospit a 00 l No known No known Disease Unive rs active active ity of problems problems [facility] Allergies, Adverse Reactions, Alerts Allergy Allergy Status Severity Reaction(s) Onset Inactive Treating Comm ents Source Name Type Date Date Clinician CODEINE Allergy Active 2019-0 ENCGEN - 12:40: 07 CODEINE Allergy Active 2020-0 ENCGEN 9- 12:40: 07 CODEINE Allergy Active 2020-0 ENCGEN 9- 12:40: 07 CODEINE Allergy Active 2020-0 ENCGEN 9- 12:40: 07 CODEINE Allergy Active 2020-0 ENCGEN 9- 12:40: 07 CODEINE Allergy Active 2020-0 ENCGEN 9- 12:40: 07 CODEINE Allergy Active 2020-0 ENCGEN 9- 12:40: 07 AZITHROM Allergy Active 2020-0 ENCGEN YCIN 9 12:39: 56 AZITHROM Allergy Active 2019-0 ENCGEN YCIN 9 12:39: 56 AZITHROM Allergy Active 2019-0 ENCGEN YCIN 9 12:39: 56 AZITHROM Allergy Active 2019-0 ENCGEN YCIN 9 12:39: 56 AZITHROM Allergy Active 2019-0 ENCGEN YCIN 05-03 12:39: 56 AZITHROM Allergy Active 2019-0 ENCGEN YCIN 9 12:39: 56 AZITHROM Allergy Active 2019-0 ENCGEN YCIN 9 12:39: 56 Azithrom Propensi Active Unknown Unconfirm Me thodi ycin ty to Reaction 03-[address] adverse 00:00: allergy. Hospita reaction 00 l s to drug Codeine Propensi Active GI 0 Nausea Methodi ty to Intolerance 03-[address] adverse 00:00: vomiting. Hospit a reaction 00 l s to drug Codeine Propensi Active Nausea Univers ty to and/or 8-30 ity of adverse Vomiting 00:00: [place] reaction 00 Medical s Branch Family History Family Member Diagnosis Comments Start Date Stop Date Source Natural father No Known Problems Met [facility] Natural mother No Known Problems [facility] Social History Social Habit Start Date Stop Date Quantity Comments Source History SDOH Alcohol [facility] Std Drinks Medical Branch History SDOH Alcohol [facility] Binge [facility] Gender identity [facility] of Social 2022-11-06 2022-11-06 [facility] function 00:00:00 00:00:00 Alcohol intake 2020-03-02 2020-03-02 [facility] 00:00:00 00:00:00 History SDOH Alcohol 2019-05-01 2019-05-01 1 [facility] Frequency 00:00:00 00:00:00 Medical Branch 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 Clinician (SIG) Name Name allopurinoL 2020-0 Yes 300mg QD Take 300 M ethodi (ZYLOPRIM) 7-[address] 300 MG 19:41: mouth Hospita tablet 36 daily. l aspirin 2020-0 Yes 81mg QD Take 81 mg Meth yan (ECOTRIN) 7-[address] 81 MG 19:41: daily. Hospita enteric 36 l coated tablet ergocalcife 2020-0 Yes [id number] Q7D Take Meth yan rol 7-20 50,000 [address] (VITAMIN 19:41: Units by Hospi ta D2) 50,000 36 mouth once l unit a week. capsule pantoprazol 2020-0 Yes 40mg QD Take 40 mg Methodi e 7-[address] (PROTONIX) 19:41: daily. Hospi ta 40 MG EC 36 l tablet allopurinoL 2020-0 Yes 300mg QD Take 300 M ethodi (ZYLOPRIM) 7-[address] 300 MG 19:41: mouth Hospita tablet 36 daily. l aspirin 2020-0 Yes 81mg QD Take 81 mg Meth yan (ECOTRIN) 7-[address] 81 MG 19:41: daily. Hospita enteric 36 l coated tablet ergocalcife 2020-0 Yes [id number] Q7D Take Meth yan rol 7-20 50,000 st (VITAMIN 19:41: Units by Hospi ta D2) 50,000 36 mouth once l unit a week. capsule pantoprazol 2020-0 Yes 40mg QD Take 40 mg Methodi e 7-[address] (PROTONIX) 19:41: daily. Hospi ta 40 MG EC 36 l tablet allopurinoL 2020-0 Yes 300mg QD Take 300 M ethodi (ZYLOPRIM) 7-[address] 300 MG 19:41: mouth Hospita tablet 36 daily. l aspirin 2020-0 Yes 81mg QD Take 81 mg Meth yan (ECOTRIN) 7-[address] 81 MG 19:41: daily. Hospita enteric 36 l coated tablet ergocalcife 2020-0 Yes [id number] Q7D Take Meth yan rol 7-20 50,000 st (VITAMIN 19:41: Units by Hospi ta D2) 50,000 36 mouth once l unit a week. capsule pantoprazol 2020-0 Yes 40mg QD Take 40 mg Methodi e 7-[address] (PROTONIX) 19:41: daily. Hospi ta 40 MG EC 36 l tablet polyethylen 2020-0 Yes 17g Q.5D Take 17 g M ethodi e glycol 7-[address] (MIRALAX) 00:00: (two) Hospita 17 gram 00 times a l packet day. polyethylen 2020-0 Yes 17g Q.5D Take 17 g M ethodi e glycol 7-[address] (MIRALAX) 00:00: (two) Hospita 17 gram 00 times a l packet day. polyethylen 2020-0 Yes 17g Q.5D Take 17 g M ethodi e glycol 7-[address] (MIRALAX) 00:00: (two) Hospita 17 gram 00 times a l packet day. carvediloL 2020-0 Yes 25mg Q.5D Take 25 mg M ethodi (COREG) 25 6-[address] MG tablet 00:00: (two) Hospita 00 times a l day. carvediloL 2020-0 Yes 25mg Q.5D Take 25 mg M ethodi (COREG) 25 6-[address] MG tablet 00:00: (two) Hospita 00 times a l day. carvediloL 2020-0 Yes 25mg Q.5D Take 25 mg M ethodi (COREG) 25 6-[address] MG tablet 00:00: (two) Hospita 00 times a l day. simvastatin 2020-0 Yes 10mg QD Take 10 mg Methodi (ZOCOR) 10 4-[address] MG tablet 00:00: nightly. Hosp rigo 00 l simvastatin 2020-0 Yes 10mg QD Take 10 mg Methodi (ZOCOR) 10 4-[address] MG tablet 00:00: nightly. Hosp rigo 00 l simvastatin 2020-0 Yes 10mg QD Take 10 mg Methodi (ZOCOR) 10 4-[address] MG tablet 00:00: nightly. Hosp rigo 00 l hydrALAZINE 2020-0 Yes 100mg Q.[id number] Take 100 Methodi (APRESOLINE 2-11 [id number] mg by s t ) 50 MG 00:00: 3D mouth 3 Hospita tablet 00 (three) l times a day. NIFEdipine 2020-0 Yes 30mg QD Take 30 mg M ethodi CC (ADALAT 2-[address]) 30 MG 00:00: nightly. Hosp rigo 24 hr 00 l tablet hydrALAZINE 2020-0 Yes 100mg Q.[id number] Take 100 Methodi (APRESOLINE 2-11 [id number] mg by s t ) 50 MG 00:00: 3D mouth 3 Hospita tablet 00 (three) l times a day. NIFEdipine 2020-0 Yes 30mg QD Take 30 mg M ethodi CC (ADALAT 2-[address] CC) 30 MG 00:00: nightly. Hosp rigo 24 hr 00 l tablet hydrALAZINE 2020-0 Yes 100mg Q.[id number] Take 100 Methodi (APRESOLINE 2-11 [id number] mg by s t ) 50 MG 00:00: 3D mouth 3 Hospita tablet 00 (three) l times a day. NIFEdipine 2020-0 Yes 30mg QD Take 30 mg M ethodi CC (ADALAT 2-[address] CC) 30 MG 00:00: nightly. Hosp rigo 24 hr 00 l tablet NIFEdipine 2019-0 Yes 30mg Take 30 mg U nivers ER 30 mg 9-04 by mouth ity of tablet 19:22: daily. [place] [address] Medical Branch allopurinol 2019-0 Yes 300mg Take 300 U nivers 300 mg 9-04 mg by ity of tablet 19:22: mouth [place] [address] daily. Medical Branch simvastatin 2019-0 Yes 10mg Take 10 mg Univers 10 mg 9-04 by mouth ity of tablet 19:22: at [place] [address] bedtime. Medical Branch carvedilol 2019-0 Yes 25mg Take 25 mg U nivers (COREG) 25 9-04 by mouth 2 ity of mg tablet 19:22: (two) [place] 32 times Medical daily with Branch meals. gabapentin 2019-0 Yes 300mg Take 300 Un naun ER 300 mg 9-04 mg by ity of tablet, 19:22: mouth [place] extended 32 daily. Medical release 24 Branch hr NIFEdipine 2019-0 Yes 30mg Take 30 mg U nivers ER 30 mg 9-04 by mouth ity of tablet 19:22: daily. [place] 32 Medical Branch allopurinol 2019-0 Yes 300mg Take 300 U nivers 300 mg 9-04 mg by ity of tablet 19:22: mouth [place] 32 daily. Medical Branch simvastatin 2019-0 Yes 10mg Take 10 mg Univers 10 mg 9-04 by mouth ity of tablet 19:22: at [place] [address] bedtime. Medical Branch carvedilol 2019-0 Yes 25mg Take 25 mg U nivers (COREG) 25 9-04 by mouth 2 ity of mg tablet 19:22: (two) [place] 32 times Medical daily with Branch meals. gabapentin 2019-0 Yes 300mg Take 300 Un naun ER 300 mg 9-04 mg by ity of tablet, 19:22: mouth [place] extended 32 daily. Medical release 24 Branch hr sodium 2018-0 Yes PRN, Univers chloride 05-06 Starting ity of (NS) 17:26: Sat05/06/19 [place] injection 00 at 1226, Medica l Until Branch Discontinu ed, Routine, Intra-op neomycin-po 2018-0 Yes PRN, Univer s lymyxin-dex 05-06 Starting ity of amethasone 17:25: Sat05/06/19 [place] (MAXITROL) 00 at 1225, Medic al 3.5 Until Branch mg/g-10,000 Discontinu unit/g-0.1 ed, % Routine, ophthalmic Intra-op ointment EPINEPHrine 2018-0 Yes PRN, Univer s 1:1,000 (1 - Starting ity o f mg/mL) 17:24: Sat05/06/19 [place] (ADRENALIN) 00 at 1224, Medi salv[place] injection Until Branch Discontinu ed, Routine, Intra-op DUOVISC 0 Yes PRN, Univers (DUOVISC 05-06 Starting ity of VISCO 17:24: Sat05/06/19 [place] ELASTIC) 3 00 at 1224, Medic al %-4 %(0.5 Until Branch mL) 1 % Discontinu (0.55 mL) ed, intraocular Routine, injection Intra-op carbachol 2018-0 Yes PRN, Univers (MIOSTAT) 05-06 Starting ity of 0.01 % 17:24: 05/06/19 [place] intraocular 00 at 1224, Medi [place] injection Until Branch Discontinu ed, Routine, Intra-op balanced 2018-0 Yes PRN, Univers salt irrig 05-06 Starting ity o f soln comb1 17:23: Sat05/06/19 [place] (BSS PLUS) 00 at 1223, Medic al ophthalmic Until Branch solution Discontinu 500 mL bag ed, Routine, Intra-op water for Yes PRN, Univers irrigation 05-06 Starting ity o f irrigation 17:08: 05/06/19 [place] solution 00 at 1208, Medical Until Branch Discontinu ed, Routine, Intra-op lidocaine-e Yes PRN, Univer s pinephrine 05-06 Starting ity o f (XYLOCAINE 17:07: Sat05/06/19 [place] W/EPINEPHRI 00 at 1207, Medi salv[place] NE) 2 Until Branch %-1:200,000 Discontinu injection ed, Routine, Intra-op Hyaluronida Yes PRN, Univer s se, Human 05-06 Starting ity of Recomb. 17:07: Sat05/06/19 [place] (HYLENEX) 00 at 1207, Medica l injection Until Branch Discontinu ed, Routine, Intra-op lactated 2019- No 500mL at 20 Univer s ringers IV 05-06 mL/hr, 500 it y of infusion 15:00: 14:55 mL, IV [place] 500 mL 00 :00 Infusion, Medical ONCE, 1 Branch dose, Sat05/06/19 at 1000, Routine, DSU Pre-op mydriatic 2019- No .5mL 0.5 mL, Univ ers #5 05-06 Right Eye, ity of ophthalmic 15:00: 16:27 ONCE, 1 [place] as solution 00 :00 dose, Sat Medica l 0.5 mL 05/06/19 at Branch syringe 1000, Routine, DSU Pre-op Vital Signs Vital Name Observation Time Observation Value Comments Source Systolic blood 2019-05-06 168 mm[Hg] notified Dat Universit y of pressure 17:45:00 Del[place] with [place] Medical anesthesia Branch Diastolic blood 2019-05-06 85 mm[Hg] notified Dat Universi ty of pressure 17:45:00 Delgado with [place] Medical anesthesia [facility] Heart rate 2019-05-06 77 /min University of 17:45:00 [place] Medical [facility] Respiratory rate 2019-05-06 16 /min University of 17:45:00 [place] [facility] Oxygen saturation 2019-05-06 98 /min University of in Arterial blood 17:45:00 [place] Medi salvador by Pulse oximetry Branch Body temperature 2019-05-06 36.72 [place] University of 17:35:00 [place] [facility] Body height 2019-05-01 165.1 cm University of 18:00:00 [place] [facility] Body weight 2019-05-01 102.967 kg University of 18:00:00 [place] [facility] [place] BMI 2019-05-01 37.77 kg/m2 University of 18:00:00 [place] [facility] Systolic blood 2019-05-06 168 mm[Hg] notified Adt Universit y of pressure 17:45:00 Delgado with [place] [facility] anesthesia Branch Diastolic blood 2019-05-06 85 mm[Hg] notified Dat Universi ty of pressure 17:45:00 Delgado with [place] Medical anesthesia Branch Heart rate 2019-05-06 77 /min University of 17:45:00 [place] [facility] Respiratory rate 2019-05-06 16 /min University of 17:45:00 [place] [facility] Oxygen saturation 2019-05-06 98 /min University of in Arterial blood 17:45:00 [place] Medi salvador by Pulse oximetry Branch Body temperature 2019-05-06 36.72 [place] University of 17:35:00 [place] [facility] Body height 2019-05-01 165.1 cm University of 18:00:00 [facility] Body weight 2019-05-01 102.967 kg University of 18:00:00 [facility] BMI 2019-05-01 37.77 kg/m2 University of 18:00:00 [facility] Procedures Procedure Date / Time Performed Performing Clinician [facility] e DAY SURGERY - ADC 2019-05-06 05:01:00 Doctor Unassigned, No Univ ersity of [facility] Medical [place] NOTICE OF PRIVACY 2019-04-27 18:07:56 Doctor Unassigned, No Univ ersity of [facility] Medical [place] CONSENT/REFUSAL FOR 2019-04-27 18:07:43 Doctor Unassigned, No [facility] DIAGNOSIS AND Name Medical Branch TREATMENT CONSENT/REFUSAL FOR 2019-04-27 18:07:31 Doctor Unassigned, No [facility] DIAGNOSIS AND Name Medical Branch TREATMENT ASSIGNMENT OF BENEFITS 2019-04-27 18:07:18 Doctor Unassigned, No [facility] Medical Branch ASSIGNMENT OF BENEFITS 2019-04-27 18:07:06 Doctor Unassigned, No [facility] Medical Branch PHYSICIAN ORDERS 2019-04-27 05:01:00 Doctor Unassigned, [facility] Plan of Care Planned Activity Planned Date Details Comments Source Future Scheduled 2023-04-04 COVID-19 VACCINE (#1) [facility] Test 21:15:39 [code = COVID-19 VACCINE (#1)] Future Scheduled 2023-04-04 65+ [facility]UMOCOCCAL [facility] Test 21:15:39 VACCINE (1 - PCV) [code = 65+ PNEUMOCOCCAL VACCINE (1 - PCV)] Future Scheduled 2023-04-04 SHINGLES VACCINES (1 Met [facility] Test 21:15:39 of 2) [code = SHINGLES VACCINES (1 of 2)] Future Scheduled 2023-04-04 INFLUENZA VACCINE [facility] Test 21:15:39 [code = INFLUENZA VACCINE] Future Scheduled 2021-08-23 COVID-19 VACCINE (1) Met [facility] Test 16:03:37 [code = COVID-19 VACCINE (1)] Future Scheduled 2021-08-23 65+ [facility]UMOCOCCAL [facility] Test 16:03:37 VACCINE (1 of 4 - PCV13) [code = 65+ PNEUMOCOCCAL VACCINE (1 of 4 - PCV13)] Future Scheduled 2021-08-23 [facility]INGLES [facility]IN[facility] 16:03:37 [code = SHINGLES VACCINES (#1)] Future Scheduled 2021-08-23 INFLUENZA VACCINE [facility] Test 16:03:37 [code = INFLUENZA VACCINE] Future Scheduled 2021-08-23 COVID-19 VACCINE (1) Met [facility] Test 16:03:37 [code = COVID-19 VACCINE (1)] Future Scheduled 2021-08-23 65+ P[facility]UMOCOCCAL [facility] Test 16:03:37 VACCINE (1 of 4 - PCV13) [code = 65+ PNEUMOCOCCAL VACCINE (1 of 4 - PCV13)] Future Scheduled 2021-08-23 SHINGLES VACCINES (#1) M [facility] Test 16:03:37 [code = SHINGLES VACCINES (#1)] Future Scheduled 2021-08-23 INFLUENZA VACCINE [facility] Test 16:03:37 [code = INFLUENZA VACCINE] Encounters Start End Encounter Admission Attending Care Care Encounter Source Date/Time Date/Time Type Type Clinicians Facility Department ID 2021-09-28 Outpatient 3 [id number] ENCPL REF [id number] [facility] 10:24:40 0817 [facility] Cedric d 2020-04-29 Outpatient LARISSA DE LA ROSA ENCGEN [id number] ENCGEN 09:08:45 N THERESA 2022-07-24 2022-07-24 Outpatient DMG DMG [id number] [facility] 00:00:00 00:00:00 [id number] Medica l Group 2020-03-02 2020-03-21 Inpatient [facility] [id number] [place] 00:00:00 00:00:00 SAHITYA [address] 2019-05-06 2019-05-06 [facility] [id number] 09:46:00 13:14:00 Encounter Doug Anthony [id number] [place] [id number] Surgical [id number] [place] [address] 2019-05-06 2019-05-06 [facility] [id number] [facility] 09:46:00 13:14:00 Encounter Doug Anthony [id number] ity of [place] 4.2.7.2.686 [place] Surgical [id number] Med [address] 2019-05-06 2019-05-06 Orders Doctor HERRERA [id number] 00:00:00 00:00:00 Only Unassigned, LAURITA [id number] [place] [facility] [id number] [id number] 2019-05-06 2019-05-06 Orders Doctor HERRERA [id number] Univers 00:00:00 00:00:00 Only Unassigned, LAURITA [id number] ity of [place] [facility] 4.2.7.2.686 [facility] [id number] [facility] 009 Branch 2019-04-27 2019-04-27 Network Project Manager 1, Adc Lab [facility] [id number] 13:06:03 14:02:29 Visit Gabrielle [id number] [place] [id number] [place] [id number] 2019-04-27 2019-04-27 Network Project Manager 1, Adc Lab [facility] [id number] [facility] 13:06:03 14:02:29 Visit Doug Stephens [id number] 0 ity of [place] 4.2.7.2.686 [facility] [id number] [address] Results Test Description Test Time Test Comments Results Result Comments Source SARS coronavirus 2 RNA [Presence] in Respiratory speci men by 2020-03-07 03:03:48 [facility] with probe detection Test Item Value Reference Range Interpretation Comme nts SARS coronavirus 2 RNA [Presence] in Respiratory specimen Detect ed Not-Detected by [facility] with probe detection (test code = 16059-3) EBEN MORRIS coronavirus 2 RNA [Presence] in Respiratory specimen by [facility] with probe [id number] 16:32:42 Test Item Value Reference Range Interpretation Comments SARS coronavirus 2 RNA [Presence] in Detected Not-Detected Respiratory specimen by [facility] with probe detection (test code = 82175-8) EBEN MUNOZRS-COV2/RT-PCR ([facility])2020-02-22 08:37:00 Test Item Value Reference Range Interpretation Comments SARS-COV2/RT-PCR (test code = Detected Not Detected, Negative A A [id number]) SARS-COV-2 PERFORMING LAB [facility] (test code = 1717082) Results are for the detection of SARS-CoV-2 RNA. The SARS-CoV-2 RNA is generally detectable in nasopharyngeal swab specimens during the acute phase of infection. Positive results are indicative of active infection with SARS-CoV-2; clinical correlation with patient history and other diagnostic information is necessary to determine patient infection status. Positive results do not rule out bacterial infection or co-infection with other viruses. The agent detected may not be the definite cause of disease. The limit of detection for this assay is 250 copies/mL.This SARS CoV-2 test is a rapid, aobl-oqmcUY-EOQ test intended for the qualitative detection of nucleic acid from SARS-CoV-2 in a nasopharyngea l swab specimen collected from individuals suspected of COVID-19 by their healthcare provider.This test has not been Food and Drug Administration (FDA) cleared or approved and has been authorized by FDA under an Emergency Use Authorization (EUA). This EUA will be effective until the declaration that ci rcumstances exist justifying the authorization of the emergency use of in vitro diagnostic tests fordetection and/or diagnosis of COVID-19 is terminated under Section 564(b)(2) of the Act or the EUA is revoked under Section 564(g) of the Act.Fact Sheet for Healthcare Providers:https://www.OrderMyGear/ Documents/Xpert%20Xpress%20SARS%20CoV-2/Fact%20Sheets/3023802%51EEZN-CSP-4%20HE ALTHCARE%20PROVIDERS%20FACT%20SHEET.pdfFact Sheet for Healthcare Patients:https://www.OrderMyGear/Documents/Xpert%20Xpress %20SARS%20CoV-2/Fact%20Sheets/3023801%08FVQC-USQ-0%20PATIENT%20FACT%20SHEET.pdf Performing Laboratory:[facility] [place] [address]
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
[2023-04-07 16:53] VITALS: BP 174/77
== END 2023-04-07 16:33 | disposition home or self-care (01) ==
LOC: ER 14:20
DX: R51.9 Headache, unspecified (principal); M54.2 Cervicalgia; V49.40XA Driver injured in collision with unspecified motor vehicles in traffic accident, initial encounter; I10 Essential (primary) hypertension; Z88.5 Allergy status to narcotic agent
CPT/HCPCS: 70450; 72125; 99285

== ENCOUNTER → 2023-09-07 | Emergency (ER) | payer OTHER ==
[~2023-09-07] MED LIST: ACETAMINOPHEN 500 MG TAB ONE; LIDOCAINE 4% PATCH ONE; MORPHINE 4 MG/ML SYR ONE
--- NOTE | 2023-09-07 16:32 | RAD REPORT ---
EXAM DESCRIPTION: CT - Spine Lumbar Wo Con - 09/07/2023 4:22 pm CLINICAL HISTORY: Radiculopathy. PAIN COMPARISON: Lumbar Spine 3 Views dated 09/05/2023 TECHNIQUE: Axial noncontrast CT imaging of the lumbar spine was performed with coronal and sagittal re-formatted images. All CT scans are performed using dose optimization technique as appropriate and may include automated exposure control or mA/KV adjustment according to patient size. FINDINGS: No acute lumbar spine fracture seen. No aggressive marrow pattern or malalignment. Paraspinal tissues are normal in thickness. No paraspinal abscess or hematoma seen. Advanced multilevel degenerative changes with vacuum disc degeneration and large posterior disc bulge s/protrusions at the mid and lower lumbar spine. Postsurgical changes are present involving the poste rior elements lower lumbar spine. IMPRESSION: No acute lumbar spine finding. Advanced multilevel lumbar degenerative spondylosis.
--- NOTE | 2023-09-07 18:11 | EDPHYS ---
Physician Documentation [facility] Name: Niurka Gomes Age: 87 yrs Sex: Female : 1935 Arrival Date: 09/07/2023 Time: 15:03 Bed 20 Private MD: ED Physician Sudhir Vega HPI: 09/07 15:42 This 87 yrs old Black Female presents to ER via Wheelchair with complaints of low back ec2 pain. 15:42 Patient arrives today for evaluation of low back pain. Patient reports that she has ec2 been experiencing lower back pain for several days, progressively worsening, states that it is worse with positional movements, states that she has difficulty laying in bed. Patient reports no fevers or chills, no urinary complaints. Patient initially had a complaint of possible kidney infection however denies any urinary complaints specifically.. Historical: - Allergies: 15:27 codeine sulfate (Unknown reaction, Vomiting, Upset stomach); cm10 - PMHx: 15:27 Arthritis; Gout; Hypertension; irregular HR; cm10 - Immunization history:: Adult Immunizations unknown. - Social history:: Smoking status: Patient denies any tobacco usage or history of. ROS: 15:42 Constitutional: as per hpi ec2 Exam: 15:42 Constitutional: GEN: NAD Head: atraumatic Eyes: EOMI Ears: External ears are ec2 normal. CV: regular rate LUNGS: no respiratory distress ABD: non-distended, negative flank bilaterally. SKIN: no evidence of rashes MSK: no evidence of trauma, L-spine TTP, no deformities, no crepitus appreciated. NEURO: moves all extremities equally Vital Signs: 15:27 BP 151 / 92; Pulse 67; Resp 18 S; Temp 97.4(TE); Pulse Ox 98% on R/A; Weight 98.43 kg; cm10 Height 5 ft. 5 in. ; Pain 8/10; 18:00 BP 159 / 73; Pulse 73; Resp 16; Pulse Ox 96% on R/A; db 18:26 BP 159 / 73; Pulse 73; Resp 18; Pulse Ox 98% on R/A; db 15:27 Body Mass Index 36.11 (98.43 kg, 165.1 cm) cm10 15:27 Pain Scale: Adult cm10 MDM: 15:30 Patient medically screened. ec2 16:00 Data reviewed: vital signs. ED course: Of note patient was seen here recently, had ec2 L-spine x-rays which showed significant arthritis, no acute pathology. Will proceed with CT imaging.. 16:35 ED course: CT of the L-spine shows no acute traumatic pathology.. ec2 18:11 ED course: CT imaging shows significant arthritis. On reassessment patient is ec2 well-appearing, reports marked improvement in symptoms. Will discharge her to home and have her follow-up with her primary care doctor. Return precautions given.. 01 15:42 Order name: CT Lumbar Spine Wo Con; Complete Time: 16:35 ec2 Administered Medications: 17:05 Drug: morphine IM 4 mg IM once Route: IM; Site: Ventrogluteal RIGHT; db 18:26 Follow up: Response: No adverse reaction db 17:14 Drug: Lidoderm Topical Patch 5 % (700 mg/patch) 1 patches Topical once; leave on for 12 db hours; cover most painful area; may cut into smaller pieces Route: Topical; Site: affected area; 18:26 Follow up: Response: No adverse reaction db 17:14 Drug: Acetaminophen PO 1000 mg PO once Route: PO; db 18:26 Follow up: Response: No adverse reaction db Disposition Summary: 09/07/23 18:11 Discharge Ordered Notes: Location: Home ec2 Condition: Stable ec2 Diagnosis - Low back pain ec2 Followup: ec2 - With: Private Physician - When: - Reason: Re-evaluation by your physician Discharge Instructions: - Discharge Summary Sheet ec2 - Chronic Back Pain ec2 Forms: - Medication Reconciliation Form ec2 - Thank You Letter ec2 - Antibiotic Education ec2 - Prescription Opioid Use ec2 - Patient Portal Instructions ec2 - Leadership Thank You Letter ec2 Prescriptions: - methocarbamol 500 mg Oral tablet - take 2 tablets ORAL route 4 times per day; 20 tablet; Refills: 0, Product ec2 Selection Permitted Signatures: Dispatcher [employer] Jaye Liu RN RN Stacey Jaquez RN RN cm10 Sudhir Vega MD MD ec2 Corrections: (The following items were deleted from the chart) 16:03 16:03 Patient medically screened. ec2 ec2
--- NOTE | 2023-09-07 18:11 | ER ---
Nurse's Notes [facility] Name: Niurka Gomes Age: 87 yrs Sex: Female : 1935 Arrival Date: 09/07/2023 Time: 15:03 Bed 20 Private MD: Diagnosis: Low back pain Presentation: 09/07 15:27 Chief complaint: Patient states: Back pain that is worse with movement onset 1 week cm10 ago. Pt states that it hurts for her to lay down. No urinary symptoms. Coronavirus screen: Vaccine status: Patient reports receiving the 2nd dose of the covid vaccine. Client denies travel out of the [place] in the last 14 days. Ebola Screen: Patient denies travel to an Ebola-affected area in the 21 days before illness onset. No symptoms or risks identified at this time. Initial Sepsis Screen: Does the patient meet any 2 criteria? No. Patient's initial sepsis screen is negative. Does the patient have a suspected source of infection? No. Patient's initial sepsis screen is negative. Risk Assessment: Do you want to hurt yourself or someone else? Patient reports no desire to harm self or others. Onset of symptoms was September 07, 2023. 15:27 Method Of Arrival: Wheelchair cm10 15:27 Acuity: YESENIA 4 cm10 Historical: - Allergies: 15:27 codeine sulfate (Unknown reaction, Vomiting, Upset stomach); cm10 - PMHx: 15:27 Arthritis; Gout; Hypertension; irregular HR; cm10 - Immunization history:: Adult Immunizations unknown. - Social history:: Smoking status: Patient denies any tobacco usage or history of. Screenin:[address] [facility] ED Fall Risk Assessment (Adult) History of falling in the last 3 months, db including since admission No falls in past 3 months (0 pts) Confusion or Disorientation No (0 pts) Intoxicated or Sedated No (0 pts) Impaired Gait No (0 pts) Mobility Assist Device Used No (0 pt) Altered Elimination No (0 pt) Score/Fall Risk Level 0 - 2 = Low Risk Oriented to surroundings. Abuse screen: Denies threats or abuse. Denies injuries from another. Nutritional screening: No deficits noted. Tuberculosis screening: No symptoms or risk factors identified. Assessment: 17:00 Reassessment: Patient appears in no apparent distress at this time. Patient and/or db family updated on plan of care and expected duration. Pain level reassessed. Patient is alert, oriented x 3, equal unlabored respirations, skin warm/dry/pink. Pain: Complains of pain in back. 18:09 Reassessment: Patient appears in no apparent distress at this time. Patient and/or db family updated on plan of care and expected duration. Pain level reassessed. Patient is alert, oriented x 3, equal unlabored respirations, skin warm/dry/pink. Patient states feeling better. Patient states symptoms have improved. General: Appears in no apparent distress. comfortable, Behavior is calm, cooperative. Pain:. Neuro: Level of Consciousness is awake, alert, obeys commands, Oriented to person, place, time, situation. Musculoskeletal: Circulation, motion, and sensation intact. Capillary refill < 3 seconds, Range of motion: intact in all extremities. 18:26 Reassessment: Patient appears in no apparent distress at this time. Patient and/or db family updated on plan of care and expected duration. Pain level reassessed. Patient is alert, oriented x 3, equal unlabored respirations, skin warm/dry/pink. Vital Signs: 15:27 BP 151 / 92; Pulse 67; Resp 18 S; Temp 97.4(TE); Pulse Ox 98% on R/A; Weight 98.43 kg; cm10 Height 5 ft. 5 in. ; Pain 8/10; 18:00 BP 159 / 73; Pulse 73; Resp 16; Pulse Ox 96% on R/A; db 18:26 BP 159 / 73; Pulse 73; Resp 18; Pulse Ox 98% on R/A; db 15:27 Body Mass Index 36.11 (98.43 kg, 165.1 cm) cm10 15:27 Pain Scale: Adult cm10 ED Course: 15:07 Patient arrived in ED. mg5 15:08 Sudhir Vega MD is Attending Physician. ec2 15:27 Arm band placed on Patient placed in waiting room. cm10 15:28 Triage completed. cm10 16:24 CT Lumbar Spine Wo Con In Process Unspecified. EDMS 16:45 Jaye Sherman, YAW is Primary Nurse. db 18:10 Patient has correct armband on for positive identification. Bed in low position. Call db light in reach. Side rails up X 1. Provided Education on: BACK PAIN AND HOME MOVEMENT AND EXERCISE DAILY. Pulse ox on. NIBP on. 18:10 No provider procedures requiring assistance completed. Patient did not have IV access db during this emergency room visit. Administered Medications: 17:05 Drug: morphine IM 4 mg IM once Route: IM; Site: Ventrogluteal RIGHT; db 18:26 Follow up: Response: No adverse reaction db 17:14 Drug: Lidoderm Topical Patch 5 % (700 mg/patch) 1 patches Topical once; leave on for 12 db hours; cover most painful area; may cut into smaller pieces Route: Topical; Site: affected area; 18:26 Follow up: Response: No adverse reaction db 17:14 Drug: Acetaminophen PO 1000 mg PO once Route: PO; db 18:26 Follow up: Response: No adverse reaction db Medication: 18:26 VIS not applicable for this client. db Outcome: 18:11 Discharge ordered by . finn2 18:26 Discharged to home via wheelchair, with family, db 18:26 Condition: stable 18:26 Discharge instructions given to patient, family, Instructed on discharge instructions, follow up and referral plans. Prescriptions given X 1, 18:36 Patient left the ED. mb4 Signatures: Dispatcher [employer] Mirela Cornelius mb4 Jaye Sherman RN RN Stacey Jaquez RN RN 10 Rupinder Pierre mg5 Sudhir Vega MD MD ec2
[2023-09-07 20:52] VITALS: BP 159/73; TEMP 97.4; O2SAT 96
== END ==
LOC: ER 15:03
DX: M54.50 Low back pain, unspecified (principal); Z88.5 Allergy status to narcotic agent
CPT/HCPCS: 72131; 96372; 99284; J2001

== ENCOUNTER 2024-12-08 00:02 | Inpatient (IN) | payer OTHER ==
[2024-12-08 01:02] LABS: Absolute Basophils 0.1 K/uL (0-0.5); Absolute Eosinophils 0.2 K/uL (0-0.5); Absolute Lymphocytes (CBC) 2.1 K/uL (0.7-4.9); Absolute Monocytes 0.4 K/uL (0.1-1.3); Absolute Neutrophil 5.4 K/uL (1.8-8.0); Basophils % 0.9 % (0-1.3); Eosinophils % 2.1 % (0-4.4); Hemoglobin 10.9 g/dL (12.0-15.0); Lymphocytes % 25.8 % (15.3-44.8); MCH 29.1 pg (27.0-35.0); MCHC 34.2 g/dL (32.0-36.0); MCV 85.1 fL (80-100); MPV 8.4 fL (7.6-11.3); Monocytes % 5.3 % (3.3-12.3); Neutrophils % 65.9 % (41.7-73.7); Nucleated Red Blood Cells % 0.2 % (0-0); Platelets 254 thou/uL (152-406); RBC Red Blood Cell Count 3.75 M/uL (3.86-4.86); Red Cell Distribution Width 15.6 % (12.1-15.2)
[2024-12-08 01:09] LABS: PT Prothrombin Time 10.8 SECONDS (10-13.0); Protime INR 0.94
[2024-12-08] MEDS ORDERED: METOCLOPRAMIDE 10 MG/2mL INJ ONE (01:10)
[2024-12-08] MEDS ORDERED: FUROSEMIDE 20 MG/ 2ML VIAL ONE (01:10)
[2024-12-08] MEDS ORDERED: HYDROCODONE/APAP 5/325 MG TAB ONE (01:11)
[2024-12-08 01:23] LABS: ALT/SGPT 20 U/L (13-56); AST/SGOT 15 U/L (15-37); Albumin 3.2 g/dL (3.4-5.0); Albumin/Globulin Ratio 0.8 (1.1-1.8); Alkaline Phosphatase 75 U/L (45-117); Anion Gap 9.1 mEq/L (5.0-15.0); BUN Blood Urea Nitrogen 66 mg/dL (7-18); Bicarbonate 27 mEq/L (21-32); Bilirubin Total 0.3 mg/dL (0.2-1.0); Globulin 4.2 g/dL (2.3-3.5); Glomerular Filtration Rate 12 ml/min (=/>90); Glucose Level 123 mg/dL (74-106); Magnesium 2.1 mg/dL (1.6-2.4); NT PRO-BNP 666 pg/mL (<450); Potassium 4.1 mEq/L (3.5-5.1); Protein, Total 7.4 g/dL (6.4-8.2); Sodium Level 137 mEq/L (136-145); Troponin High Sensitivity 36.4 pg/mL (<58.9)
[2024-12-08 01:24] LABS: Bilirubin Direct < 0.2 mg/dL (0-0.2); Bilirubin Indirect, Calculated 0.1 mg/dL (0.2-0.8)
--- NOTE | 2024-12-08 03:47 | P.HP ---
Certification for Inpatient Patient admitted to: Inpatient With expected LOS: >2 Midnights Practitioner: I am a practitioner with admitting privileges, knowledge of patient current condition, hospital course, and medical plan of care. Services: Services provided to patient in accordance with Admission requirements found in Title 42 Section 412.3 of the Code of Federal Regulations Patient History Date of Service: 12/08/24 Reason for admission: Bilateral lower extremity swelling History of Present Illness: 89 yrs old Female with past medical history of hypertension, hyperlipidemia, congestive heart failure, arthritis, gout, arrhythmia, was brought to ER with generalized weakness and headache associated with bilateral lower extremity swelling which has been going on for last 1 week and has been progressively getting worse and was brought to ER. She also has a history of CKD stage II, bilateral neuropathy. Patient denies any fever or chills. No nausea vomiting or diarrhea. Denies any chest pain or shortness of breath. Patient complains of persistent headache, bifrontal, not associated with any aura, Patient denies any trauma. Bilateral lower extremity swelling has been progressively getting worse. Patient was assessed in the ER and admitted for further management of acute on chronic kidney disease and possible CHF exacerbation Allergies codeine [Codeine] Allergy (Verified 09/19/23 12:18) Nausea/Vomiting codeine sulfate Allergy (Uncoded 09/19/23 12:18) Unknown Home medications list reviewed: Yes Home Medications: Gabapentin [Neurontin*] 300 mg PO TID 09/02/12 Pantoprazole [Protonix Tab*] 40 mg PO DAILY 09/02/12 allopurinoL [Zyloprim*] 300 mg PO DAILY 09/02/12 Hydrocodone 5/APAP 325 [[place] 5/325*] 1 tab PO DAILY PRN 10/24/16 Simvastatin [Zocor*] 10 mg PO BEDTIME 10/24/16 Albuterol Sulfate [Albuterol Sulfate 0.083% Neb Soln] 1 vial IH Q4HP PRN 02/22/20 Aspirin [Aspirin EC 81 MG] 81 mg PO DAILY 02/22/20 Ergocalciferol (Vitamin D2) [Vitamin D2] 50,000 unit PO SEECOM 02/22/20 Hydralazine HCl [Apresoline] 100 mg PO TID 02/22/20 NIFEdipine [Nifedipine ER] 30 mg PO BEDTIME PRN 02/22/20 NIFEdipine [Nifedipine ER] 30 mg PO DAILY 02/22/20 Trazodone [Desyrel*] 50 mg PO BEDTIME 02/22/20 carvediloL [Coreg] 25 mg PO BID 02/22/20 Azithromycin Tab [Zithromax*] 250 mg PO ZPAK #1 beatrice 02/23/20 - Past Medical/Surgical History Diabetic: No Past Medical History: Reviewed- Non-Contributory -: GOUT -: HTN -: ARTHRITIS Past Surgical History: Reviewed- Non-Contributory -: Carpel tunnel repair -: neck and back sx - Family History Family History: Reviewed- Non-Contributory - Family History Father -: Cancer Mother -: Hypertension - Social History Smoking Status: Never smoker Alcohol use: No CD- Drugs: No Caffeine use: No Review of Systems 10-point ROS is otherwise unremarkable Physical Examination - Vital Signs Temperature: 98.2 F Blood Pressure: 132/68 Pulse: 76 Respirations: 18 Pulse Ox (%): 94 - Physical Exam General: Alert, Oriented x3, Mild distress HEENT: Atraumatic, Normocephalic Neck: Supple Respiratory: Clear to auscultation bilaterally, Normal air movement, Crackles/rales Cardiovascular: Regular rate/rhythm, Normal S1 S2 Capillary refill: <2 Seconds Gastrointestinal: Soft and benign, W/out hepatosplenomegaly Musculoskeletal: No clubbing, Swelling Integumentary: No rashes Neurological: Other (Alert, awake, nonfocal) Lymphatics: No axilla or inguinal lymphadenopathy - Studies Laboratory Data (last 24 hrs) 12/08/24 12/08/24 12/08/24 00:50 00:50 00:50 WBC 8.30 Hgb 10.9 L Hct 32.0 L Plt Count 254 PT 10.8 INR 0.94 Sodium 137 Potassium 4.1 BUN 66 H Creatinine 3.60 H Glucose 123 H Magnesium 2.1 Total Bilirubin 0.3 AST 15 ALT 20 Alkaline Phosphatase 75 Assessment and Plan - Plan Acute kidney injury on chronic kidney disease II Monitor renal parameters Nephrology consulted H/o CKD stage II Monitor renal parameters Electrolytes monitor and replace accordingly Acute on chronic CHF possibly systolic/diastolic Monitor closely on telemetry Started on diuresis Oxygen supplementation if needed Continue home medications Titrate as needed Will obtain an echocardiogram Hypertension Antihypertensives titrated Continue home medications and titrate as needed Hyperlipidemia Continue statin Bilateral lower extremity swelling Will get a Doppler bilateral lower extremity Pain control Headache bifrontal CT head is negative for any acute changes Pain management GI/DVT prophylaxis Advanced directive full code Discharge Plan: Home Plan to discharge in: 48 Hours - Advance Directives Does patient have a Living Will: No Does patient have a Durable POA for Healthcare: No - Code Status/Comfort Care Code Status: Full Code Time Spent Managing Pts Care (In Minutes): 48
--- NOTE | 2024-12-08 03:48 | RAD REPORT ---
CT HEAD WITHOUT IV CONTRAST INDICATION: Headache. COMPARISON: CT head 04/07/2023 TECHNIQUE: CT images of the head were obtained without contrast. Multiplanar reformats were provided. Dose lowering techniques such as automated exposure control, iterative reconstruction, and mA and/or kV adjustment for patient size was utilized for this examination. FINDINGS: PARENCHYMA: No acute arterial territory infarct. No acute intracranial hemorrhage. No mass effect or midline shift. VENTRICLES: Normal in size for patient's age. EXTRA-AXIAL: No focal collection. Patent basilar cisterns. Empty sella. ORBITS: No acute findings. Status post bilateral cataract surgeries. BONES: No acute finding. PARANASAL SINUSES/MASTOIDS/MIDDLE EARS: Clear. SOFT TISSUES: No acute findings. OTHER: None. IMPRESSION: 1. No acute intracranial abnormality. Empty sella. Electronically signed by: Lakisha Michele MD 12/08/2024 03:43 AM CDT RP Due to temporary technical issues with the PACS/[employer] reporting system, reports are being daniela d by the in-house radiologist without review as a courtesy to ensure prompt reporting the interpreting radiologist is fully responsible for the content of the report. Transcribed Date/Time: 12/08/2024 3:48 AM
--- NOTE | 2024-12-08 03:53 | ER ---
Nurse's Notes [facility] Name: Niurka Gomes Age: 89 yrs Sex: Female : 1935 Arrival Date: 12/08/2024 Time: 00:02 Bed 5 Private MD: Diagnosis: Acute on chronic renal failure, congestive heart failure exacerbation, acute diastolic heart failure, bilateral lower extremity edema Presentation: 12/08 00:11 Chief complaint: Patient states: HEADACHE SINCE YESTERDAY. SWELLING OF FEET FOR THE ha1 PAST THREE DAYS. Coronavirus screen: Client denies travel out of the [place] in the last 14 days. 00:11 Method Of Arrival: Wheelchair ha1 00:11 Ebola Screen: No symptoms or risks identified at this time. Initial Sepsis Screen: Does ha1 the patient meet any 2 criteria? No. Patient's initial sepsis screen is negative. Does the patient have a suspected source of infection? No. Patient's initial sepsis screen is negative. Risk Assessment: Do you want to hurt yourself or someone else? Patient reports no desire to harm self or others. Onset of symptoms was December 08, 2024. 00:11 Acuity: YESENIA 3 ha1 Triage Assessment: 00:11 Headache History: The patient has had previous headaches and this one is similar to ha1 previous episodes. General: Appears uncomfortable, Behavior is cooperative. Pain: Complains of pain in HEADACHE Pain does not radiate. Pain currently is 8 out of 10 on a pain scale. Quality of pain is described as aching, pressure, Pain began 1 day ago. Neuro: Level of Consciousness is awake, alert, obeys commands, Oriented to person, place, time, situation. Cardiovascular: Capillary refill < 3 seconds Patient's skin is warm and dry. Respiratory: Airway is patent Respiratory effort is even, unlabored, Respiratory pattern is regular, symmetrical. GI: Abdomen is round obese. : No signs and/or symptoms were reported regarding the genitourinary system. Musculoskeletal: Circulation, motion, and sensation intact. Range of motion: intact in all extremities. Historical: - Allergies: 00:11 codeine sulfate (Unknown reaction, Vomiting, Upset stomach); ha1 - Home Meds: 00:11 allopurinol 300 mg Oral tab 1 tab once daily [Active]; carvedilol 25 mg Oral tab ha1 [Active]; - PMHx: 00:11 Arthritis; Gout; Hypertension; irregular HR; Congestive heart failure; ha1 - PSHx: 00:11 BACK AND NECK SURGERY; ha1 - Immunization history:: Adult Immunizations not up to date. - Infectious Disease History:: Denies. - Social history:: Smoking status: Patient denies any tobacco usage or history of. - Family history:: not pertinent. Screenin:44 [facility] ED Fall Risk Assessment (Adult) History of falling in the last 3 months, ha1 including since admission Yes- single mechanical fall (1 pt) Confusion or Disorientation No (0 pts) Intoxicated or Sedated No (0 pts) Impaired Gait Yes (1 pt) Mobility Assist Device Used Yes (1 pt) Altered Elimination No (0 pt) Score/Fall Risk Level 3 or more points = High Risk Oriented to surroundings, Maintained a safe environment, Educated pt \T\ family on fall prevention, incl call for assistance when getting out of bed, Hourly rounding (assess needs \T\ fall precautionary measures) done. Abuse screen: Denies threats or abuse. Denies injuries from another. Nutritional screening: No deficits noted. Tuberculosis screening: No symptoms or risk factors identified. Assessment: 00:15 General: Appears in no apparent distress. uncomfortable, Behavior is calm, cooperative, jb4 appropriate for age. Pain: Complains of pain in headache Pain does not radiate. Pain currently is 6 out of 10 on a pain scale. Neuro: Level of Consciousness is awake, alert, obeys commands, Oriented to person, place, time, situation. Cardiovascular: Patient's skin is warm and dry. Respiratory: Airway is patent Respiratory effort is even, unlabored, Respiratory pattern is regular, symmetrical. Derm: Skin is intact, Skin is dry, Skin is normal, Skin temperature is warm. Musculoskeletal: Circulation, motion, and sensation intact. Range of motion: intact in all extremities, Swelling present in right foot, left foot, right leg and left leg. 01:00 Reassessment: Patient appears in no apparent distress at this time. Patient and/or jb4 family updated on plan of care and expected duration. Pain level reassessed. Patient is alert, oriented x 3, equal unlabored respirations, skin warm/dry/pink. 02:00 Reassessment: Patient appears in no apparent distress at this time. Patient and/or jb4 family updated on plan of care and expected duration. Pain level reassessed. Patient is alert, oriented x 3, equal unlabored respirations, skin warm/dry/pink. 06:00 Reassessment: Patient and/or family updated on plan of care and expected duration. Pain br2 level reassessed. Patient is alert, oriented x 3, equal unlabored respirations, skin warm/dry/pink. Patient states feeling better. Patient states symptoms have improved. Vital Signs: 00:11 BP 173 / 76; Pulse 83; Resp 19 S; Temp 98.3(O); Pulse Ox 99% on R/A; Weight 112.94 kg; ha1 Height 5 ft. 5 in. ; 01:30 BP 192 / 80; Pulse 81; Resp 19; Pulse Ox 97% on R/A; jb4 02:45 BP 173 / 63; Pulse 72; Resp 18; Pulse Ox 94% on R/A; jb4 03:26 BP 162 / 67; Pulse 73; Resp 18 S; Pulse Ox 94% on R/A; br2 00:11 Body Mass Index 41.44 (112.94 kg, 165.1 cm) ha1 Erna Coma Score: 03:16 Eye Response: spontaneous(4). Motor Response: obeys commands(6). Verbal Response: sp4 oriented(5). Total: 15. 03:49 Eye Response: spontaneous(4). Motor Response: obeys commands(6). Verbal Response: sp4 oriented(5). Total: 15. ED Course: 00:06 Patient arrived in ED. al6 00:40 Triage completed. ha1 00:41 Gilberto Robb MD is Attending Physician. sp4 00:42 Inserted saline lock: 20 gauge in left antecubital area, using aseptic technique. vk Flushed with 10 mL NS. 00:43 EKG done, by ED staff. vk 00:52 Basic Metabolic Panel Sent. vk 00:52 CBC with Diff Sent. vk 00:52 LFT's Sent. vk 00:52 Magnesium Sent. vk 00:52 NT PRO-BNP Sent. vk 00:52 PT-INR Sent. vk 00:52 Troponin HS Sent. vk 00:52 Initial lab(s) drawn, by me, sent to lab. vk 01:01 XRAY Chest (1 view) In Process Unspecified. EDMS 01:06 Cheryl Abraham, RN is Primary Nurse. kd3 01:51 CT Head Brain wo Cont In Process Unspecified. EDMS 03:52 Adalberto Nix MD is Hospitalizing Provider. sp4 Administered Medications: 01:27 Drug: metoCLOPramide IVP 10 mg IVP once; over 1 to 2 minutes Route: IVP; Site: left jb4 antecubital; 01:27 Drug: HYDROcodone-acetaminophen PO 5 mg-325 mg 2 tabs PO once Route: PO; jb4 01:27 Drug: Furosemide IVP 20 mg IVP once; give over 2 minutes Route: IVP; Site: left jb4 antecubital; 06:23 Drug: hydrALAZINE IVP 20 mg IVP once Route: IVP; Site: left antecubital; br2 Outcome: 03:53 Decision to Hospitalize by Provider. sp4 07:08 Patient left the ED. ll1 Signatures: Dispatcher [employer] EDMS Bartolo Benavides RN RN jb4 Manuel Magana RN RN ll1 Cheryl Abraham, YAW TIDWELL kd3 Lesli Thompson RN RN ha1 Potepalov, Sergey, MD MD sp4 Neha Mejias Belinda, RN RN br2 Darlene Charles al6
--- NOTE | 2024-12-08 03:53 | EDPHYS ---
Physician Documentation [facility] Name: Niurka Gomes Age: 89 yrs Sex: Female : 1935 Arrival Date: 12/08/2024 Time: 00:02 Bed 5 Private MD: ED Physician Gilberto Robb HPI: 12/08 00:41 This 89 yrs old Black Female presents to ER via Wheelchair with complaints of Headache, sp4 Feet Swelling. 00:59 Patient presents with complaint of bilateral lower extremity swelling for 1 week sp4 associated with persistent headache. Past medical history includes essential hypertension, history of chronic kidney disease, unsteady gait, bilateral neuropathy, patient's primary physician is Yenny Chowdary. Patient's medications include albuterol inhaler as needed, allopurinol 100 mg daily, amlodipine 5 mg daily, apixaban 2.5 mg twice daily, aspirin 81 mg daily, atorvastatin 10 mg daily, carvedilol 12.5 mg twice daily, cetirizine 10 mg daily, diclofenac gel as needed, fluticasone Flonase in the evening, furosemide 40 mg daily, gabapentin 100 mg p.o. twice a day, hydralazine 50 mg p.o. twice daily, spironolactone 21 mg p.o. daily. Historical: - Allergies: 00:11 codeine sulfate (Unknown reaction, Vomiting, Upset stomach); ha1 - Home Meds: 00:11 allopurinol 300 mg Oral tab 1 tab once daily [Active]; carvedilol 25 mg Oral tab ha1 [Active]; - PMHx: 00:11 Arthritis; Gout; Hypertension; irregular HR; Congestive heart failure; ha1 - PSHx: 00:11 BACK AND NECK SURGERY; ha1 - Immunization history:: Adult Immunizations not up to date. - Infectious Disease History:: Denies. - Social history:: Smoking status: Patient denies any tobacco usage or history of. - Family history:: not pertinent. ROS: 03:16 Constitutional: Negative for fever, chills, and weight loss, positive for headache, sp4 positive for generalized weakness, positive for bilateral lower extremity swelling 03:16 All other systems are negative, Exam: 03:16 Constitutional: Patient is elderly frail female, morbidly obese, signs of sp4 generalized physical deconditioning, bilateral lower extremity edema with pitting, Head/Face: Normocephalic, atraumatic. Eyes: Pupils equal round and reactive to light, extra-ocular motions intact. Lids and lashes normal. Conjunctiva and sclera are not injected. Cornea within normal limits. Periorbital areas with no swelling, redness, or edema. ENT: Nares patent. No nasal discharge, no septal abnormalities noted. Tympanic membranes are normal and external auditory canals are clear. Oropharynx with no redness, swelling, or masses, exudates, or evidence of obstruction, uvula midline. Mucous membranes moist. Neck: Trachea midline, no thyromegaly or masses palpated, and no cervical lymphadenopathy. Supple, full range of motion without nuchal rigidity, or vertebral point tenderness. Chest/axilla: Normal chest wall appearance and motion. Nontender with no deformity. No lesions are appreciated. Cardiovascular: Regular rate and rhythm with a normal S1 and S2. No gallops, murmurs, or rubs. Normal PMI, positive JVD, bilateral lower extremity pitting edema, no pulse deficits Respiratory: Lungs have equal breath sounds bilaterally, clear to auscultation and percussion. No rales, rhonchi or wheezes noted. No increased work of breathing, no retractions or nasal flaring. Abdomen/GI: Soft, with normal bowel sounds. No distension or tympany. No guarding or rebound. No evidence of tenderness throughout. Back: No spinal tenderness. No costovertebral tenderness. Skin: Warm, dry with normal turgor. Normal color with no rashes, no lesions, and no evidence of cellulitis. MS/ Extremity: Pulses equal, no cyanosis. Neurovascular intact. Full, normal range of motion. Bilateral lower extremity pitting edema moderate to severe Neuro: Awake and alert, GCS 15, oriented to person, place, time, and situation. Cranial nerves II-XII grossly intact. Motor strength 5/5 in all extremities. Sensory grossly intact. Psych: Awake, alert, with orientation to person, place and time. Behavior, mood, and affect are within normal limits 03:16 ECG was reviewed by the Attending Physician. EKG at 0027 normal sinus rhythm, normal EKG Vital Signs: 00:11 BP 173 / 76; Pulse 83; Resp 19 S; Temp 98.3(O); Pulse Ox 99% on R/A; Weight 112.94 kg; ha1 Height 5 ft. 5 in. ; 01:30 BP 192 / 80; Pulse 81; Resp 19; Pulse Ox 97% on R/A; jb4 02:45 BP 173 / 63; Pulse 72; Resp 18; Pulse Ox 94% on R/A; jb4 03:26 BP 162 / 67; Pulse 73; Resp 18 S; Pulse Ox 94% on R/A; br2 00:11 Body Mass Index 41.44 (112.94 kg, 165.1 cm) ha1 Erna Coma Score: 03:16 Eye Response: spontaneous(4). Motor Response: obeys commands(6). Verbal Response: sp4 oriented(5). Total: 15. 03:49 Eye Response: spontaneous(4). Motor Response: obeys commands(6). Verbal Response: sp4 oriented(5). Total: 15. MDM: 00:16 Medical Screening Exam initiated kb 03:15 ED course: EXAM DESCRIPTION: Chest Single View CLINICAL HISTORY: CHEST PAIN COMPARISON: sp4 None TECHNIQUE: Single AP view of the chest. FINDINGS: Lung volumes adequate. Cardiac silhouette is normal in size. No pneumothorax. No large pleural effusion. No focal consolidation. No acute bony finding. IMPRESSION: No evidence of acute cardiopulmonary disease. Electronically signed by: Akshat Edwards MD 12/08/2024 01:45 AM. 03:49 Differential diagnosis: glaucoma. ED course: CT HEAD WITHOUT IV CONTRAST INDICATION: sp4 Headache. COMPARISON: CT head 04/07/2023 TECHNIQUE: CT images of the head were obtained without contrast. Multiplanar reformats were provided. Dose lowering techniques such as automated exposure control, iterative reconstruction, and mA and/or kV adjustment for patient size was utilized for this examination. FINDINGS: PARENCHYMA: No acute arterial territory infarct. No acute intracranial hemorrhage. No mass effect or midline shift. VENTRICLES: Normal in size for patient's age. EXTRA-AXIAL: No focal collection. Patent basilar cisterns. Empty sella. ORBITS: No acute findings. Status post bilateral cataract surgeries. BONES: No acute finding. PARANASAL SINUSES/MASTOIDS/MIDDLE EARS: Clear. SOFT TISSUES: No acute findings. OTHER: None. IMPRESSION: 1. No acute intracranial abnormality. Empty sella. Electronically signed by: Lakisha Michele MD. 03:53 Data reviewed: vital signs, nurses notes, old medical records, lab test result(s), EKG, sp4 radiologic studies, plain films. Consideration of Admission/Observation Escalation of care including admission/observation considered. ED course: Patient is stable for admission to the medical telemetry floor. 12/08 00:42 Order name: Basic Metabolic Panel; Complete Time: 03:05 sp4 12/08 00:42 Order name: CBC with Diff; Complete Time: 03:05 sp4 12/08 00:42 Order name: LFT's; Complete Time: 03:05 sp4 12/08 00:42 Order name: Magnesium; Complete Time: 03:05 sp4 12/08 00:42 Order name: NT PRO-BNP; Complete Time: 03:05 sp4 12/08 00:42 Order name: PT-INR; Complete Time: 03:05 sp4 12/08 00:42 Order name: Troponin HS; Complete Time: 03:05 sp4 12/08 03:53 Order name: Urinalysis w/ reflexes EDMS 12/08 03:53 Order name: CBC with Automated Diff EDMS 12/08 03:53 Order name: CBC with Automated Diff EDMS 12/08 03:53 Order name: Comprehensive Metabolic Panel EDMS 12/08 03:53 Order name: Comprehensive Metabolic Panel EDMS 12/08 03:53 Order name: Troponin High Sensitivity EDMS 12/08 03:53 Order name: Troponin High Sensitivity EDMS 12/08 03:53 Order name: Troponin High Sensitivity EDMS 12/08 03:53 Order name: Troponin High Sensitivity EDMS 12/08 00:42 Order name: XRAY Chest (1 view); Complete Time: 05:55 sp4 12/08 00:58 Order name: CT Head Brain wo Cont; Complete Time: 05:55 sp4 12/08 03:53 Order name: CONS Physician Consult EDMO 12/08 00:42 Order name: Cardiac monitoring; Complete Time: 00:43 sp4 12/08 00:42 Order name: EKG - Nurse/Tech; Complete Time: 00:42 sp4 12/08 00:42 Order name: IV Saline Lock; Complete Time: 00:43 sp4 12/08 00:42 Order name: Labs collected and sent; Complete Time: 00:43 sp4 12/08 00:42 Order name: O2 Per Protocol; Complete Time: 00:43 sp4 12/08 00:42 Order name: O2 Sat Monitoring; Complete Time: 00:43 sp4 12/08 00:59 Order name: Misc. Order: Apply Pure Wic; Complete Time: sp4 EC: Rate is 79 beats/min. Rhythm is regular, Normal Sinus Rhythm. QRS [place] is Normal. TN sp4 interval is normal. QRS interval is normal. QT interval is normal. No Q waves. T waves are Normal. No ST changes noted. Clinical impression: Normal ECG. Interpreted by me. Reviewed by me. Administered Medications: 01: Drug: metoCLOPramide IVP 10 mg IVP once; over 1 to 2 minutes Route: IVP; Site: left jb4 antecubital; : Drug: HYDROcodone-acetaminophen PO 5 mg-325 mg 2 tabs PO once Route: PO; jb4 01: Drug: Furosemide IVP 20 mg IVP once; give over 2 minutes Route: IVP; Site: left jb4 antecubital; 06:23 Drug: hydrALAZINE IVP 20 mg IVP once Route: IVP; Site: left antecubital; br2 Disposition Summary: 12/08/24 03:53 Hospitalization Ordered Notes: Hospitalization Status: Inpatient Admission sp4 Provider: Adalberto Nix Location: Telemetry/[facility] (Inpatient) sp4 Condition: Stable sp4 Problem: new sp4 Symptoms: have improved sp4 Bed/Room Type: Standard sp4 Room Assignment: 222(12/08/24 04:59) Diagnosis - Acute on chronic renal failure, congestive heart failure exacerbation, acute sp4 diastolic heart failure, bilateral lower extremity edema Forms: - Medication Reconciliation Form sp4 - SBAR form sp4 - Leadership Thank You Letter sp4 Signatures: Dispatcher [employer] EDMS Jerri Hernández FNP-C FNP-Kelly Andrews RN RN kl Bryson, James, RN RN jb4 Lesli Thompson RN RN ha1 Potepalov, Sergey, MD MD sp4 Adelaida Barnes RN RN br2 Corrections: (The following items were deleted from the chart) 00:42 00:42 Chest Single View+RAD.RAD.BRZ ordered. EDMS EDMS 00:59 00:59 Head Brain Wo Cont+CT.RAD.BRZ ordered. EDMS EDMS 04:59 03:53 sp4 kl
--- NOTE | 2024-12-08 05:48 | RAD REPORT ---
EXAM DESCRIPTION: Chest Single View CLINICAL HISTORY: CHEST PAIN COMPARISON: None TECHNIQUE: Single AP view of the chest. FINDINGS: Lung volumes adequate. Cardiac silhouette is normal in size. No pneumothorax. No large pleural effusion. No focal consolidation. No acute bony finding. IMPRESSION: No evidence of acute cardiopulmonary disease. Electronically signed by: Akshat Edwards MD 12/08/2024 01:45 AM CDT RP TYG Due to temporary technical issues with the PACS/[employer] reporting system, reports are being daniela d by the in-house radiologist without review as a courtesy to ensure prompt reporting the interpreting radiologist is fully responsible for the content of the report. Transcribed Date/Time: 12/08/2024 5:48 AM
[2024-12-08] MEDS ORDERED: HYDRALAZINE HCL 20 MG/ML VIAL ONE (06:02)
[2024-12-08] MEDS: FUROSEMIDE 20 MG/ 2ML VIAL IV SCH (06:04)
[2024-12-08] MEDS ORDERED: ALBUTEROL 2.5 MG/3 ML NEB SOL IH PRN (06:07)
[2024-12-08 06:10] VITALS: BMI 41.9
--- NOTE | 2024-12-08 07:23 | RAD REPORT ---
EXAMINATION: US Extrem Venous W Compress Ryan CLINICAL INDICATION: [facility] MAIN Swelling Y TECHNIQUE: Complete bilateral duplex sonography of the BILATERAL lower extremity veins was performed. The examination included compression for vein patency, color Doppler imaging and flow augmentation in response to distal compression of the distal external iliac, common femoral, femoral, popliteal, t ibial, and great and small saphenous veins. COMPARISON: No prior exam. FINDINGS: Duplex sonography testing of the veins of the BILATERAL lower extremity was performed. Color flow kay ging shows all veins to be compressible with [id number] color filling. Pulsatile and phasic flow is present within all lower extremity deep and superficial veins examined. Elongated mildly complex right popliteal fossa 6.5 cm cyst,, and elongated left popliteal fossa 5.6 c m cyst, suggesting nonruptured Landin's cysts. IMPRESSION: There is no deep vein or superficial vein thrombosis bilaterally. 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
--- NOTE | 2024-12-08 08:14 | P.CNS ---
Date of Consult: 12/08/24 Reason for Consult: GIO/ CKD Requesting Physician: Yenny Barton Chief Complaint: Bilateral lower extremity swelling History of Present Illness: 89 yrs old Female with past medical history of hypertension, hyperlipidemia, congestive heart failure, arthritis, gout, arrhythmia, was brought to ER with generalized weakness and headache associated with bilateral lower extremity swelling which has been going on for last 1 week and has been progressively getting worse and was brought to ER. She also has a history of CKD stage II, bilateral neuropathy. Patient denies any fever or chills. No nausea vomiting or diarrhea. Denies any chest pain or shortness of breath. Patient complains of persistent headache, bifrontal, not associated with any aura, Patient denies any trauma. Bilateral lower extremity swelling has been progre ssively getting worse. Patient was assessed in the ER and admitted for further management of acute on chronic kidney disease and possible CHF exacerbation 00:41 This 89 yrs old Black Female presents to ER via Wheelchair with complaints of Headache, sp4 Feet Swelling. 00:59 Patient presents with complaint of bilateral lower extremity swelling for 1 week sp4 associated with persistent headache. Past medical history includes essential hypertension, history of chronic kidney disease, unsteady gait, bilateral neuropathy, patient's primary physician is Yenny Chowdary. Patient's medications include albuterol inhaler as needed, allopurinol 100 mg daily, amlodipine 5 mg daily, apixaban 2.5 mg twice daily, aspirin 81 mg daily, atorvastatin 10 mg daily, carvedilol 12.5 mg twice daily, cetirizine 10 mg daily, diclofenac gel as needed, fluticasone Flonase in the evening, furosemide 40 mg daily, gabapentin 100 mg p.o. twice a day, hydralazine 50 mg p.o. twice daily, spironolactone 21 mg p.o. daily. Denies NSAIDs. Denies bladder issues. Allergies codeine [Codeine] Allergy (Verified 09/19/23 12:18) Nausea/Vomiting codeine sulfate Allergy (Uncoded 09/19/23 12:18) Unknown Home medications list reviewed: Yes Home Medications: Gabapentin [Neurontin*] 300 mg PO TID 09/02/12 Pantoprazole [Protonix Tab*] 40 mg PO DAILY 09/02/12 allopurinoL [Zyloprim*] 300 mg PO DAILY 09/02/12 Simvastatin [Zocor*] 10 mg PO BEDTIME 10/24/16 Aspirin [Aspirin EC 81 MG] 81 mg PO DAILY 02/22/20 Ergocalciferol (Vitamin D2) [Vitamin D2] 50,000 unit PO SEECOM 02/22/20 Hydralazine HCl [Apresoline] 100 mg PO TID 02/22/20 Trazodone [Desyrel*] 50 mg PO BEDTIME 02/22/20 carvediloL [Coreg] 12.5 mg PO BID 02/22/20 Amlodipine [Norvasc] 5 mg PO DAILY 12/08/24 Furosemide [Lasix] 40 mg PO DAILY 12/08/24 Spironolactone [Aldactone] 25 mg PO DAILY 12/08/24 - Past Medical/Surgical History Diabetic: No -: GOUT -: HTN -: ARTHRITIS -: CKD (Dr. Conte/ [facility]) -: Carpel tunnel repair -: neck and back sx - Family History Father Medical History: Cancer Mother Medical History: Hypertension - Social History Smoking Status: Unknown if ever smoked Alcohol use: No CD- Drugs: No Caffeine use: No Review of Systems 10-point ROS is otherwise unremarkable Cardiovascular: Edema Physical Examination Temp Pulse Resp BP Pulse Ox 98.2 F 76 18 132/68 94 12/08/24 06:03 12/08/24 06:03 12/08/24 06:03 12/08/24 06:03 12/08/24 06:03 General: In no apparent distress, Cooperative, Obese HEENT: Atraumatic Neck: Supple Respiratory: Normal air movement, Diminished Cardiovascular: Regular rate/rhythm, Edema Gastrointestinal: Soft and benign, Non-distended Musculoskeletal: No clubbing, No contractures Integumentary: No rashes, No cyanosis Neurological: Normal speech Laboratory Data (last 24 hrs) 12/08/24 12/08/24 12/08/24 00:50 00:50 00:50 WBC 8.30 Hgb 10.9 L Hct 32.0 L Plt Count 254 PT 10.8 INR 0.94 Sodium 137 Potassium 4.1 BUN 66 H Creatinine 3.60 H Glucose 123 H Magnesium 2.1 Total Bilirubin 0.3 AST 15 ALT 20 Alkaline Phosphatase 75 Imagings Data: Chest Single View CLINICAL HISTORY: CHEST PAIN COMPARISON: None TECHNIQUE: Single AP view of the chest. FINDINGS: Lung volumes adequate. Cardiac silhouette is normal in size. No pneumothorax. No large pleural effusion. No focal consolidation. No acute bony finding. IMPRESSION: No evidence of acute cardiopulmonary disease. EXAMINATION: US Extrem Venous W Compress Ryan CLINICAL INDICATION: [facility] MAIN Swelling TECHNIQUE: Complete bilateral duplex sonography of the BILATERAL lower extremity veins was performed. The examination included compression for vein patency, color Doppler imaging and flow augmentation in response to distal compression of the distal external iliac, common femoral, femoral, popliteal, tibial, and great and small saphenous veins. COMPARISON: No prior exam. FINDINGS: Duplex sonography testing of the veins of the BILATERAL lower extremity was performed. Color flow imaging shows all veins to be compressible with [id number] color filling. Pulsatile and phasic flow is present within all lower extremity deep and superficial veins examined. Elongated mildly complex right popliteal fossa 6.5 cm cyst,, and elongated left popliteal fossa 5.6 cm cyst, suggesting nonruptured Landin's cysts. IMPRESSION: There is no deep vein or superficial vein thrombosis bilaterally. 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 EXAMINATION: US RETROPERITONEUM CLINICAL INDICATION: [facility] MAIN gio TECHNIQUE: Real-time ultrasonography of the kidneys and bladder was performed. COMPARISON: No prior exam. FINDINGS: RIGHT KIDNEY: Right renal length measurement: 8.7 cm. Normal size. Increased cortical echogenicity and mild cortical thinning.. No calculus, solid mass or hydronephrosis. Multiple anechoic cortical cysts, largest at the mid to lower pole measuring 4.3 x 4.1 x 3.8 cm. LEFT KIDNEY: Left renal length measurement: 9.4 cm. Normal in size. Increased cortical echogenicity and mild cortical thinning. No calculus, solid mass or hydronephrosis. Exophytic lateral cortical 2.1 cm anechoic cyst. URINARY BLADDER: Normal. ADDITIONAL FINDINGS: None. IMPRESSION: Increased bilateral renal cortical echogenicity and mild cortical thinning. Findings suggest long-standing medical renal disease. Bilateral benign-appearing cortical cysts as above. LEFT VENTRICULAR WALL MOTION: NORMAL DOPPLER/COLOR FLOW: GRADE I DIASTOLIC DYSFUNCTION COMMENTS: 1. NORMAL LEFT VENTRICULAR SYSTOLIC FUNCTION, EJECTION FRACTION 60-65%, NORMAL WALL MOTION 2. GRADE I DIASTOLIC DYSFUNCTION 3. NORMAL FILLING PRESSURE (RIGHT VENTRICULAR PRESSURE 0-5 mmHg) 4. 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
[2024-12-08] MEDS: ENOXAPARIN 30 MG/0.3 ML SQ SCH (09:44)
[2024-12-08] MEDS: HYDRALAZINE HCL 25 MG TABLET PO SCH (09:44)
[2024-12-08] MEDS: carvediloL 25 MG TAB PO SCH (09:44)
[2024-12-08] MEDS: ASPIRIN EC 81 MG TAB PO SCH (09:44)
[2024-12-08] MEDS: PANTOPRAZOLE 40MG TABLET PO SCH (09:45)
[2024-12-08] MEDS: allopurinoL 300 MG TAB PO SCH (09:45)
[2024-12-08] MEDS: ACETAMINOPHEN 325 MG TABLET PO PRN (09:45)
[2024-12-08] MEDS: GABAPENTIN 300 MG CAP PO SCH (09:45)
--- NOTE | 2024-12-08 10:34 | RAD REPORT ---
EXAMINATION: US RETROPERITONEUM CLINICAL INDICATION: [facility] MAIN roni TECHNIQUE: Real-time ultrasonography of the kidneys and bladder was performed. COMPARISON: No prior exam. FINDINGS: RIGHT KIDNEY: Right renal length measurement: 8.7 cm. Normal size. Increased cortical echogenicity an d mild cortical thinning.. No calculus, solid mass or hydronephrosis. Multiple anechoic cortical cysts, largest at the mid to lower pole measuring 4.3 x 4.1 x 3.8 cm. LEFT KIDNEY: Left renal length measurement: 9.4 cm. Normal in size. Increased cortical echogenicity a nd mild cortical thinning. No calculus, solid mass or hydronephrosis. Exophytic lateral cortical 2.1 cm anechoic cyst. URINARY BLADDER: Normal. ADDITIONAL FINDINGS: None. IMPRESSION: Increased bilateral renal cortical echogenicity and mild cortical thinning. Findings suggest long-sta nding medical renal disease. Bilateral benign-appearing cortical cysts as above.
--- NOTE | 2024-12-08 10:55 | EKG ---
Test Date: 2024-12-08 Test Time: 00:27:33 Airbrush Artist Technical: GUNJAN MEASUREMENT RESULTS: Intervals: Rate: 79 PA: 208 QRSD: 84 QT: 368 QTc: 421 Bronson: P: 29 PA: 208 QRS: 44 T: 48 INTERPRETIVE STATEMENTS: Normal sinus rhythm Normal ECG Compared to ECG 02/21/2020 20:58:45 T-wave abnormality no longer present Electronically Signed On 12-08-24 10:54:37 CDT by Kevin Vargas
--- NOTE | 2024-12-08 11:16 | ECHO ---
HEIGHT: 5 ft 5 in WEIGHT: 252 lb 0 oz DATE OF STUDY: 12/08/[address]: Monster Nix DO 2-DIMENSIONAL: YES M.MODE: YES DOPPLER: YES COLOR FLOW: YES TDS: YES PORTABLE: YES DEFINITY: BUBBLE STUDY: DIAGNOSIS: CONGESTIVE HEART FAILURE CARDIAC HISTORY: CATHERIZATION: NO SURGERY: NO PROSTHETIC VALVE: NO PACEMAKER: NO MEASUREMENTS (cm) DIASTOLIC (NORMALS) SYSTOLIC (NORMALS) IVSd 1.1 (0.6-1.2) LA Diam 2.6 (1.9-4.0) LVEF 60-65% LVIDd 3.9 (3.5-5.7) LVIDs 2.5 (2.0-3.5) %FS 35% LVPWd 1.2 (0.6-1.2) Ao Diam 2.7 (2.0-3.7) 2 DIMENSIONAL ASSESSMENT: RIGHT ATRIUM: NORMAL LEFT ATRIUM: MILDLY DILATED RIGHT VENTRICLE: NORMAL LEFT VENTRICLE: NORMAL TRICUSPID VALVE: MILD TRICUSPID REGURGITATION MITRAL VALVE: NORMAL PULMONIC VALVE: NORMAL AORTIC VALVE: TRACE AORTIC REGURGITATION PERICARDIAL EFFUSION: NONE AORTIC ROOT: NORMAL LEFT VENTRICULAR WALL MOTION: NORMAL DOPPLER/COLOR FLOW: GRADE I DIASTOLIC DYSFUNCTION COMMENTS: 1. NORMAL LEFT VENTRICULAR SYSTOLIC FUNCTION, EJECTION FRACTION 60-65%, NORMAL WALL MOTION 2. GRADE I DIASTOLIC DYSFUNCTION 3. NORMAL FILLING PRESSURE (RIGHT VENTRICULAR PRESSURE 0-5 mmHg) 4. MILD PULMONARY HYPERTENSION (RIGHT VENTRICULAR SYSTOLIC PRESSURE 40-45 mmHg) TECHNOLOGIST: JAMAAL LINDQUIST
[2024-12-08] MEDS: NA CHLORIDE 0.9% 1,000 ML IV SCH (16:05)
[2024-12-08] MEDS ORDERED: SIMVASTATIN 10 MG PO SCH (21:00)
[2024-12-08] MEDS: TRAZODONE 50 MG TABLET PO SCH (21:16)
[2024-12-08] MEDS: ATORVASTATIN 10 MG TAB PO SCH (21:16)
[2024-12-09 05:42] LABS: Absolute Basophils 0.1 K/uL (0-0.5); Absolute Eosinophils 0.2 K/uL (0-0.5); Absolute Lymphocytes (CBC) 1.8 K/uL (0.7-4.9); Absolute Monocytes 0.3 K/uL (0.1-1.3); Absolute Neutrophil 6.3 K/uL (1.8-8.0); Basophils % 0.8 % (0-1.3); Eosinophils % 1.8 % (0-4.4); Hematocrit 29.1 % (36.0-45.0); Lymphocytes % 21.2 % (15.3-44.8); MCH 29.1 pg (27.0-35.0); MCHC 34.3 g/dL (32.0-36.0); MCV 84.9 fL (80-100); MPV 8.3 fL (7.6-11.3); Neutrophils % 72.2 % (41.7-73.7); Nucleated Red Blood Cells % 0.2 % (0-0); Platelets 237 thou/uL (152-406); RBC Red Blood Cell Count 3.43 M/uL (3.86-4.86); Red Cell Distribution Width 15.7 % (12.1-15.2)
[2024-12-09 06:25] LABS: Specific Gravity 1.011 (1.005-1.030); Sqamous Epithelial <5 /HPF (None Seen); Urine Bacteria None Seen /HPF (<20); Urine Bilirubin NEGATIVE (Negative); Urine Blood Negative (Negative); Urine Clarity Turbid (Clear); Urine Color Colorless (Yellow); Urine Culture Reflex Order NOT NEEDED; Urine Glucose NEGATIVE (Negative); Urine Ketones NEGATIVE (Negative); Urine Micro Reflex YN NO BILL MICROSCOPIC; Urine Mucus Slight /HPF (None Seen); Urine Nitrite NEGATIVE (Negative); Urine Protein 2+ (Negative); Urine RBC <5 /HPF (None Seen); Urine Urobilinogen Normal (Normal); Urine WBC <5 /HPF (<5); Urine pH 6.5 (5.0-7.0)
[2024-12-09 08:44] LABS: Albumin 2.7 g/dL (3.4-5.0); Albumin/Globulin Ratio 0.8 (1.1-1.8); Anion Gap 10.2 mEq/L (5.0-15.0); Bilirubin Total 0.4 mg/dL (0.2-1.0); Globulin 3.6 g/dL (2.3-3.5); Phosphorus 4.4 mg/dL (2.5-4.9); Potassium 4.2 mEq/L (3.5-5.1); Protein, Total 6.3 g/dL (6.4-8.2); Uric Acid 5.1 mg/dL (2.6-6.0)
--- NOTE | 2024-12-09 10:26 | P.PN ---
Subjective Date of Service: 12/09/24 Chief Complaint: Bilateral lower extremity swelling family at bedside more awake no acute events overnight Review of Systems 10-point ROS is otherwise unremarkable Physical Examination - Vital Signs Temperature: 98.5 F Blood Pressure: 138/66 Pulse: 86 Respirations: 14 Pulse Ox (%): 99 - Physical Exam General: In no apparent distress HEENT: Atraumatic, Normocephalic Cardiovascular: Normal pulses, Edema Gastrointestinal: Soft and benign, Non-distended Neurological: Other (moves all extremities ) Assessment And Plan - Current Problems (Diagnosis) (1) Acute on chronic renal failure Onset Date: 05/16/15 Current Visit: No Status: Acute (2) Cardiomegaly Current Visit: No Status: Acute (3) Hypoxemia Onset Date: 10/24/16 Current Visit: No Status: Acute - Plan Acute on chronic kidney disease --appreciate nephrology eval --us done --renal dose medication, avoid nsaids --serial labs Acute on chronic CHF diastolic dysfunction --sats stable, echo done --she may be dry, ivf given, will hold now Hypertension Hyperlipidemia Lower extremity swelling --use done, no dvt --home med rec reviewed family updated
[2024-12-09] MEDS: ALBUTEROL 2.5 MG/3 ML NEB SOL IH SCH (13:20)
[2024-12-09 14:24] LABS: MA/CREAT RATIO 3676.5 (< 30.0); UR PROTEIN 181.3 mg/dL (<11.9); Urine Protein/Creatinine Ratio 5.33 ratio (<0.15)
--- NOTE | 2024-12-09 21:41 | P.PN ---
Date of Service: 12/09/24 Vital Signs Temp Pulse Resp BP Pulse Ox 97.7 F 71 14 186/82 H 94 12/09/24 16:00 12/09/24 20:27 12/09/24 16:00 12/09/24 20:27 12/09/24 16:00 Medications Acetaminophen (Acetaminophen 325 Mg Tablet) 650 mg PO Q4HP PRN PRN Reason: Pain scale 2-4 (Mild) Last Admin: 12/08/24 09:45 Dose: 650 mg Albuterol Sulfate (Albuterol 2.5 Mg/3 Ml Neb Trini) 2.5 mg IH [id number] [facility] Last Admin: 12/09/24 19:55 Dose: 2.5 mg Allopurinol (Allopurinol 300 Mg Tab) 300 mg PO DAILY [facility] Last Admin: 12/09/24 09:06 Dose: 300 mg Aspirin (Aspirin Ec 81 Mg Tab) 81 mg PO DAILY [facility] Last Admin: 12/09/24 09:05 Dose: 81 mg Atorvastatin Calcium (Atorvastatin 10 Mg Tab) 10 mg PO BEDTIME [facility] Last Admin: 12/09/24 20:28 Dose: 10 mg Carvedilol (Carvedilol 25 Mg Tab) 25 mg PO BID [facility] Last Admin: 12/09/24 20:27 Dose: 25 mg Enoxaparin Sodium (Enoxaparin 30 Mg/0.3 Ml) 30 mg SQ DAILY [facility] Last Admin: 12/09/24 09:05 Dose: 30 mg Ergocalciferol (Drisdol (Vitamin D=Ergocalciferol) 73251 Unit Cap) [facility] Furosemide (Furosemide 20 Mg/ 2ml Vial) 20 mg IV BIDL [facility] Last Admin: 12/09/24 09:05 Dose: 20 mg Gabapentin (Gabapentin 300 Mg Cap) 300 mg PO TID [facility] Last Admin: 12/09/24 20:27 Dose: 300 mg Hydralazine HCl (Hydralazine Hcl 20 Mg/Ml Vial) 10 mg IV Q6HP PRN PRN Reason: FOR SBP>160 OR DBP>100 MMHG Hydralazine HCl (Hydralazine Hcl 25 Mg Tablet) 100 mg PO TID [facility] Last Admin: 12/09/24 20:28 Dose: 100 mg Sodium Chloride (Ns 1000 Ml Ivbag) 1,000 mls @ 100 mls/hr IV .Q10H [facility] Last Admin: 12/09/24 01:09 Dose: 1,000 mls Ondansetron HCl (Ondansetron 4 Mg/2 Ml Vial) 4 mg IV Q6HP PRN PRN Reason: NAUSEA / VOMITING Pantoprazole Sodium (Pantoprazole 40mg Tablet) 40 mg PO DAILY [facility]; Protocol Last Admin: 12/09/24 09:06 Dose: 40 mg Trazodone HCl (Trazodone 50 Mg Tablet) 50 mg PO BEDTIME [facility] Last Admin: 12/09/24 20:27 Dose: 50 mg Assessment/ Plan: Nephrology No dyspnea No chest pain Feeling better with improved oral intake No acute events overnight Vitals, medications, blood work and imaging reviewed in the chart General: In no apparent distress, Cooperative, Obese HEENT: Atraumatic Neck: Supple Respiratory: Normal air movement, Diminished Cardiovascular: Regular rate/rhythm, Trace Edema Gastrointestinal: Soft and benign, Non-distended Musculoskeletal: No clubbing, No contractures Integumentary: No rashes, No cyanosis Neurological: Normal speech Laboratory Data (last 24 hrs) 12/08/24 12/08/24 12/08/24 00:50 00:50 00:50 WBC 8.30 Hgb 10.9 L Hct 32.0 L Plt Count 254 PT 10.8 INR 0.94 Sodium 137 Potassium 4.1 BUN 66 H Creatinine 3.60 H Glucose 123 H Magnesium 2.1 Total Bilirubin 0.3 AST 15 ALT 20 Alkaline Phosphatase 75 Imagings Data: Chest Single View CLINICAL HISTORY: CHEST PAIN COMPARISON: None TECHNIQUE: Single AP view of the chest. FINDINGS: Lung volumes adequate. Cardiac silhouette is normal in size. No pneumothorax. No large pleural effusion. No focal consolidation. No acute bony finding. IMPRESSION: No evidence of acute cardiopulmonary disease. EXAMINATION: US Extrem Venous W Compress Ryan CLINICAL INDICATION: [facility] MAIN Swelling TECHNIQUE: Complete bilateral duplex sonography of the BILATERAL lower extremity veins was performed. The examination included compression for vein patency, color Doppler imaging and flow augmentation in response to distal compression of the distal external iliac, common femoral, femoral, popliteal, tibial, and great and small saphenous veins. COMPARISON: No prior exam. FINDINGS: Duplex sonography testing of the veins of the BILATERAL lower extremity was performed. Color flow imaging shows all veins to be compressible with [id number] color filling. Pulsatile and phasic flow is present within all lower extremity deep and superficial veins examined. Elongated mildly complex right popliteal fossa 6.5 cm cyst,, and elongated left popliteal fossa 5.6 cm cyst, suggesting nonruptured Landin's cysts. IMPRESSION: There is no deep vein or superficial vein thrombosis bilaterally. 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 EXAMINATION: US RETROPERITONEUM CLINICAL INDICATION: [facility] MAIN gio TECHNIQUE: Real-time ultrasonography of the kidneys and bladder was performed. COMPARISON: No prior exam. FINDINGS: RIGHT KIDNEY: Right renal length measurement: 8.7 cm. Normal size. Increased cortical echogenicity and mild cortical thinning.. No calculus, solid mass or hydronephrosis. Multiple anechoic cortical cysts, largest at the mid to lower pole measuring 4.3 x 4.1 x 3.8 cm. LEFT KIDNEY: Left renal length measurement: 9.4 cm. Normal in size. Increased cortical echogenicity and mild cortical thinning. No calculus, solid mass or hydronephrosis. Exophytic lateral cortical 2.1 cm anechoic cyst. URINARY BLADDER: Normal. ADDITIONAL FINDINGS: None. IMPRESSION: Increased bilateral renal cortical echogenicity and mild cortical thinning. Findings suggest long-standing medical renal disease. Bilateral benign-appearing cortical cysts as above. LEFT VENTRICULAR WALL MOTION: NORMAL DOPPLER/COLOR FLOW: GRADE I DIASTOLIC DYSFUNCTION COMMENTS: 1. NORMAL LEFT VENTRICULAR SYSTOLIC FUNCTION, EJECTION FRACTION 60-65%, NORMAL WALL MOTION 2. GRADE I DIASTOLIC DYSFUNCTION 3. NORMAL FILLING PRESSURE (RIGHT VENTRICULAR PRESSURE 0-5 mmHg) 4. 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 Barton
[2024-12-10] MEDS: HYDRALAZINE HCL 20 MG/ML VIAL IV PRN (00:11)
[2024-12-10 04:54] LABS: Absolute Basophils 0.1 K/uL (0-0.5); Absolute Eosinophils 0.2 K/uL (0-0.5); Absolute Lymphocytes (CBC) 1.7 K/uL (0.7-4.9); Absolute Monocytes 0.4 K/uL (0.1-1.3); Absolute Neutrophil 6.1 K/uL (1.8-8.0); Albumin 2.6 g/dL (3.4-5.0); Albumin/Globulin Ratio 0.7 (1.1-1.8); Anion Gap 9.4 mEq/L (5.0-15.0); Bilirubin Total 0.4 mg/dL (0.2-1.0); Eosinophils % 2.2 % (0-4.4); Globulin 3.6 g/dL (2.3-3.5); Hematocrit 29.4 % (36.0-45.0); Hemoglobin 10.1 g/dL (12.0-15.0); Lymphocytes % 20.2 % (15.3-44.8); MCHC 34.2 g/dL (32.0-36.0); MCV 84.6 fL (80-100); MPV 8.6 fL (7.6-11.3); Monocytes % 5.2 % (3.3-12.3); Neutrophils % 71.4 % (41.7-73.7); Platelets 244 thou/uL (152-406); Potassium 4.4 mEq/L (3.5-5.1); Protein, Total 6.2 g/dL (6.4-8.2); RBC Red Blood Cell Count 3.47 M/uL (3.86-4.86); Red Cell Distribution Width 15.4 % (12.1-15.2)
[2024-12-10] MEDS: Ringers Lactate 1,000 ML IV SCH (13:00)
[2024-12-10] MEDS: ONDANSETRON 4 MG/2 ML VIAL IV PRN (13:02)
[2024-12-10] MEDS: ALBUTEROL 2.5 MG/3 ML NEB SOL IH SCH (13:41)
--- NOTE | 2024-12-10 14:34 | P.PN ---
Subjective Date of Service: 12/10/24 Chief Complaint: Bilateral lower extremity swelling Subjective: No new changes No complaints Review of Systems Unremarkable General: Unremarkable Eyes: Unremarkable ENT: Unremarkable Respiratory: Unremarkable Cardiovascular: Unremarkable Gastrointestinal: Unremarkable Integumentary: Unremarkable Neurological: Unremarkable Physical Examination - Vital Signs Temperature: 98.1 F Blood Pressure: 163/69 Pulse: 76 Respirations: 20 Pulse Ox (%): 95 - Physical Exam General: Alert, Oriented x3 HEENT: Atraumatic, Normocephalic Respiratory: Clear to auscultation bilaterally Cardiovascular: No edema, Normal pulses, Regular rate/rhythm Gastrointestinal: Normal bowel sounds, Soft and benign, Non-distended Musculoskeletal: No clubbing, No swelling, No contractures Neurological: Normal speech, Normal strength at 5/5 x4 extr Assessment And Plan - Plan 1. Acute on CKD III -Renal ultrasound negative obstructive uropathy - Creatinine currently at 3.9 - Will discontinue IV Lasix - Will give gentle hydration due to concern for prerenal azotemia 2. Acute on chronic CHF diastolic dysfunction -2D echo showed LVEF of 60% -Patient currently euvolemic 3. Hypertension 4. Hyperlipidemia 5. DVT prophylaxis - Subcu heparin 6. Disposition - Pending PT/OT eval
[2024-12-10] MEDS: NA CHLORIDE 0.9% 1,000 ML IV SCH (16:30)
[2024-12-10] MEDS: HEPARIN 5000 UNIT/ML 1 ML VIAL SQ SCH (21:31)
--- NOTE | 2024-12-10 22:19 | P.PN ---
Date of Service: 12/10/24 Vital Signs Temp Pulse Resp BP Pulse Ox 98.3 F 73 18 127/58 L 92 12/10/24 16:00 12/10/24 21:29 12/10/24 16:00 12/10/24 21:29 12/10/24 16:00 Medications Acetaminophen (Acetaminophen 325 Mg Tablet) 650 mg PO Q4HP PRN PRN Reason: Pain scale 2-4 (Mild) Last Admin: 12/08/24 09:45 Dose: 650 mg Albuterol Sulfate (Albuterol 2.5 Mg/3 Ml Neb Trini) 2.5 mg IH [id number] [facility] Last Admin: 12/10/24 13:41 Dose: 2.5 mg Allopurinol (Allopurinol 300 Mg Tab) 300 mg PO DAILY [facility] Last Admin: 12/10/24 08:54 Dose: 300 mg Aspirin (Aspirin Ec 81 Mg Tab) 81 mg PO DAILY [facility] Last Admin: 12/10/24 08:53 Dose: 81 mg Atorvastatin Calcium (Atorvastatin 10 Mg Tab) 10 mg PO BEDTIME [facility] Last Admin: 12/10/24 21:30 Dose: 10 mg Carvedilol (Carvedilol 25 Mg Tab) 25 mg PO BID [facility] Last Admin: 12/10/24 21:29 Dose: 25 mg Ergocalciferol (Drisdol (Vitamin D=Ergocalciferol) 14668 Unit Cap) 50,000 unit PO SEECOM [facility] Gabapentin (Gabapentin 300 Mg Cap) 300 mg PO TID [facility] Last Admin: 12/10/24 21:30 Dose: 300 mg Heparin Sodium (Porcine) (Heparin 5000 Unit/Ml 1 Ml Vial) 5,000 unit SQ Q12HR [facility] Last Admin: 12/10/24 21:31 Dose: 5,000 unit Hydralazine HCl (Hydralazine Hcl 20 Mg/Ml Vial) 10 mg IV Q6HP PRN PRN Reason: FOR SBP>160 OR DBP>100 MMHG Last Admin: 12/10/24 00:11 Dose: 10 mg Hydralazine HCl (Hydralazine Hcl 25 Mg Tablet) 100 mg PO TID [facility] Last Admin: 12/10/24 21:31 Dose: 100 mg Lactated Ringer's (Lactated Ringers) 1,000 mls @ 50 mls/hr IV .Q20H [facility] Last Admin: 12/10/24 13:00 Dose: 1,000 mls Sodium Chloride (Ns 1000 Ml Ivbag) 1,000 mls @ 100 mls/hr IV .Q10H [facility] Stop: 12/11/24 01:01 Last Admin: 12/10/24 16:30 Dose: 1,000 mls Ondansetron HCl (Ondansetron 4 Mg/2 Ml Vial) 4 mg IV Q6HP PRN PRN Reason: NAUSEA / VOMITING Last Admin: 12/10/24 13:02 Dose: 4 mg Pantoprazole Sodium (Pantoprazole 40mg Tablet) 40 mg PO DAILY [facility]; Protocol Last Admin: 12/10/24 08:54 Dose: 40 mg Trazodone HCl (Trazodone 50 Mg Tablet) 50 mg PO BEDTIME [facility] Last Admin: 12/10/24 21:30 Dose: 50 mg Assessment/ Plan: Nephrology No dyspnea No chest pain Nausea No acute events overnight Vitals, medications, blood work and imaging reviewed in the chart General: In no apparent distress, Cooperative, Obese HEENT: Atraumatic Neck: Supple Respiratory: Normal air movement, Diminished Cardiovascular: Regular rate/rhythm, Trace Edema Gastrointestinal: Soft and benign, Non-distended Musculoskeletal: No clubbing, No contractures Integumentary: No rashes, No cyanosis Neurological: Normal speech Laboratory Data (last 24 hrs) 12/08/24 12/08/24 12/08/24 00:50 00:50 00:50 WBC 8.30 Hgb 10.9 L Hct 32.0 L Plt Count 254 PT 10.8 INR 0.94 Sodium 137 Potassium 4.1 BUN 66 H Creatinine 3.60 H Glucose 123 H Magnesium 2.1 Total Bilirubin 0.3 AST 15 ALT 20 Alkaline Phosphatase 75 Imagings Data: Chest Single View CLINICAL HISTORY: CHEST PAIN COMPARISON: None TECHNIQUE: Single AP view of the chest. FINDINGS: Lung volumes adequate. Cardiac silhouette is normal in size. No pneumothorax. No large pleural effusion. No focal consolidation. No acute bony finding. IMPRESSION: No evidence of acute cardiopulmonary disease. EXAMINATION: US Extrem Venous W Compress Ryan CLINICAL INDICATION: [facility] MAIN Swelling TECHNIQUE: Complete bilateral duplex sonography of the BILATERAL lower extremity veins was performed. The examination included compression for vein patency, color Doppler imaging and flow augmentation in response to distal compression of the distal external iliac, common femoral, femoral, popliteal, tibial, and great and small saphenous veins. COMPARISON: No prior exam. FINDINGS: Duplex sonography testing of the veins of the BILATERAL lower extremity was performed. Color flow imaging shows all veins to be compressible with [id number] color filling. Pulsatile and phasic flow is present within all lower extremity deep and superficial veins examined. Elongated mildly complex right popliteal fossa 6.5 cm cyst,, and elongated left popliteal fossa 5.6 cm cyst, suggesting nonruptured Landin's cysts. IMPRESSION: There is no deep vein or superficial vein thrombosis bilaterally. 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 EXAMINATION: US RETROPERITONEUM CLINICAL INDICATION: [facility] MAIN gio TECHNIQUE: Real-time ultrasonography of the kidneys and bladder was performed. COMPARISON: No prior exam. FINDINGS: RIGHT KIDNEY: Right renal length measurement: 8.7 cm. Normal size. Increased cortical echogenicity and mild cortical thinning.. No calculus, solid mass or hydronephrosis. Multiple anechoic cortical cysts, largest at the mid to lower pole measuring 4.3 x 4.1 x 3.8 cm. LEFT KIDNEY: Left renal length measurement: 9.4 cm. Normal in size. Increased cortical echogenicity and mild cortical thinning. No calculus, solid mass or hydronephrosis. Exophytic lateral cortical 2.1 cm anechoic cyst. URINARY BLADDER: Normal. ADDITIONAL FINDINGS: None. IMPRESSION: Increased bilateral renal cortical echogenicity and mild cortical thinning. Findings suggest long-standing medical renal disease. Bilateral benign-appearing cortical cysts as above. LEFT VENTRICULAR WALL MOTION: NORMAL DOPPLER/COLOR FLOW: GRADE I DIASTOLIC DYSFUNCTION 1. NORMAL LEFT VENTRICULAR SYSTOLIC FUNCTION, EJECTION FRACTION 60-65%, NORMAL WALL MOTION 2. GRADE I DIASTOLIC DYSFUNCTION 3. NORMAL FILLING PRESSURE (RIGHT VENTRICULAR PRESSURE 0-5 mmHg) 4. MILD PULMONARY HYPERTENSION (RIGHT VENTRICULAR SYSTOLIC PRESSURE 40-45 mmHg) Conclusions/Impression: Stage I GIO may be due to hypovolemia CKD IV with Proteinuria (Serum Cr 3.2 on 11-16-24) -No NSAIDs -Gentle hydration HTN with CKD/ CHF -Continue Coreg -Continue Hydralazine Diastolic CHF, chronic Mild Pulmonary HTN -Daily weight Hypoalbuminemia -Encourage nutrition Anemia in chronic illness -Monitor H&H Hospitalist note reviewed Case reviewed with Dr. Enrique
[2024-12-11 04:28] LABS: Absolute Basophils 0.1 K/uL (0-0.5); Absolute Eosinophils 0.2 K/uL (0-0.5); Absolute Lymphocytes (CBC) 1.6 K/uL (0.7-4.9); Absolute Monocytes 0.6 K/uL (0.1-1.3); Absolute Neutrophil 6.4 K/uL (1.8-8.0); Basophils % 0.6 % (0-1.3); Eosinophils % 2.7 % (0-4.4); Hematocrit 29.6 % (36.0-45.0); Lymphocytes % 18.1 % (15.3-44.8); MCH 28.9 pg (27.0-35.0); MCHC 33.7 g/dL (32.0-36.0); MCV 85.9 fL (80-100); Monocytes % 7.1 % (3.3-12.3); Neutrophils % 71.5 % (41.7-73.7); Platelets 203 thou/uL (152-406); RBC Red Blood Cell Count 3.45 M/uL (3.86-4.86); Red Cell Distribution Width 15.9 % (12.1-15.2)
--- NOTE | 2024-12-11 08:50 | RAD REPORT ---
EXAMINATION: ONE VIEW CHEST XR CLINICAL INDICATION: Female, 89 years old.,CHF/ Volume status TECHNIQUE: Frontal chest projection is submitted. Examination is limited by patient positioning and t echnique. COMPARISON: 12/08/2024 FINDINGS: The lungs show mild central interstitial prominence, although suboptimal inspiratory effort somewhat limits evaluation. Elevation of the right hemidiaphragm again seen. No pneumothorax or sizable effusion. The heart is normal in size. Mediastinal contours are unchanged with tortuosity of the thor acic aorta. IMPRESSION: Mild central congestion/CHF.
--- NOTE | 2024-12-11 11:31 | P.PN ---
Nephrology note (S) Pt seen lying in bed, reports feeling not too well today, some nausea, but reports eating some breakfast, remains on gentle IVF, making some urine based on output recorded by Cat (O) Vitals, medications, blood work and imaging reviewed in the chart General: Elderly, NAD HEENT: Atraumatic, sclera anicteric, not needing O2 Neck: Supple Respiratory: Normal air movement, non tachypnec, no rhonchi anteriorlu Cardiovascular: Regular rate/rhythm mostly Gastrointestinal: Soft and benign, Non-distended Musculoskeletal: No contractures noted, shins no tender, no sig edema Integumentary: No rashes Neurological: Awakens easily, responds briefly, no tremors or myoclonus noted Laboratory & Imaging Data Reviewed in the EMR EXAMINATION: US RETROPERITONEUM CLINICAL INDICATION: [facility] MAIN roni TECHNIQUE: Real-time ultrasonography of the kidneys and bladder was performed. COMPARISON: No prior exam. FINDINGS: RIGHT KIDNEY: Right renal length measurement: 8.7 cm. Normal size. Increased cortical echogenicity and mild cortical thinning.. No calculus, solid mass or hydronephrosis. Multiple anechoic cortical cysts, largest at the mid to lower pole measuring 4.3 x 4.1 x 3.8 cm. LEFT KIDNEY: Left renal length measurement: 9.4 cm. Normal in size. Increased cortical echogenicity and mild cortical thinning. No calculus, solid mass or hydronephrosis. Exophytic lateral cortical 2.1 cm anechoic cyst. URINARY BLADDER: Normal. ADDITIONAL FINDINGS: None. IMPRESSION: Increased bilateral renal cortical echogenicity and mild cortical thinning. Findings suggest long-standing medical renal disease. Bilateral benign-appearing cortical cysts as above. Conclusions/Impression: Stage III ARF per SHASTA def as Cr level now > 4 mg/dl, possibly sub-acute as Cr level > 3 mg/dl last mo on underlying advanced CKD, Stage IV, eGFR calculators have limitations in the v.elderly. Follows with Dr. Chowdary in clinic. -Renal u/s with findings c/w medical renal disease, acquired cysts of kidney -Renal function tests without any improvement in the hospital thus far, cont to monitor closely on gentle IVF -No emergent indication for [employer] yet -UA without pyuria, hematuria. Notable proteinuria on spot urine testing Mod azotemia -Trend closely, monitor for any uremic symptoms HTN with CKD/ CHF -trend closely, avoid relative hypotension Diastolic CHF, chronic Mild Pulmonary HTN -Monitor weights closely [facility] partner will cover/follow over the weekend Familia aSndoval MD, SHAKIRA
--- NOTE | 2024-12-11 15:53 | P.PN ---
Subjective Date of Service: 12/11/24 Chief Complaint: Bilateral lower extremity swelling No complaints Review of Systems 10-point ROS is otherwise unremarkable Physical Examination - Vital Signs Temperature: 99.2 F Blood Pressure: 152/65 Pulse: 97 Respirations: 16 Pulse Ox (%): 96 - Physical Exam General: Alert, Oriented x3 HEENT: Atraumatic, Normocephalic Neck: Supple Respiratory: Clear to auscultation bilaterally Cardiovascular: No edema, Normal pulses, Regular rate/rhythm Gastrointestinal: Normal bowel sounds, Soft and benign, Non-distended Integumentary: No rashes, No breakdown, No significant lesion Assessment And Plan - Plan 1. Acute on CKD III -Renal ultrasound negative obstructive uropathy - Creatinine worsening, currently at 4.3 -Discontinued IV Lasix yesterday -Continue gentle hydration 2. Acute on chronic CHF diastolic dysfunction -2D echo showed LVEF of 60% -Patient currently euvolemic 3. Hypertension 4. Hyperlipidemia 5. DVT prophylaxis - Subcu heparin 6. Disposition - Pending PT/OT eval
[2024-12-12 08:40] LABS: Absolute Eosinophils 0.3 K/uL (0-0.5); Absolute Lymphocytes (CBC) 1.6 K/uL (0.7-4.9); Absolute Monocytes 0.7 K/uL (0.1-1.3); Absolute Neutrophil 6.4 K/uL (1.8-8.0); Basophils % 0.5 % (0-1.3); Eosinophils % 2.9 % (0-4.4); Hematocrit 27.5 % (36.0-45.0); Hemoglobin 9.4 g/dL (12.0-15.0); Lymphocytes % 17.4 % (15.3-44.8); MCH 29.3 pg (27.0-35.0); MCV 86.1 fL (80-100); Monocytes % 7.5 % (3.3-12.3); Neutrophils % 71.7 % (41.7-73.7); Platelets 223 thou/uL (152-406); Red Cell Distribution Width 15.5 % (12.1-15.2)
[2024-12-12 09:00] LABS: Anion Gap 10.1 mEq/L (5.0-15.0); Potassium 5.1 mEq/L (3.5-5.1)
--- NOTE | 2024-12-12 10:46 | P.PN ---
Subjective Date of Service: 12/12/24 Chief Complaint: Bilateral lower extremity swelling No complaints Review of Systems 10-point ROS is otherwise unremarkable Physical Examination - Vital Signs Temperature: 99.1 F Blood Pressure: 178/74 Pulse: 92 Respirations: 16 Pulse Ox (%): 99 - Physical Exam General: Alert, Oriented x3 HEENT: Atraumatic, Normocephalic Neck: Supple, JVD not distended Respiratory: Clear to auscultation bilaterally Cardiovascular: No edema, Normal pulses, Regular rate/rhythm Gastrointestinal: Normal bowel sounds, Soft and benign, Non-distended Musculoskeletal: No clubbing Neurological: Normal gait, Normal speech Assessment And Plan - Plan 1. Acute on CKD III -Renal ultrasound negative obstructive uropathy - Creatinine worsening, currently at 4.3 -Discontinued IV Lasix yesterday -Continue gentle hydration. -At bedside, IV fluids not running despite active order in place. Informed nurse to resume LR at 50 mL an hour as ordered 2. Acute on chronic CHF diastolic dysfunction -2D echo showed LVEF of 60% -Patient currently euvolemic 3. Hypertension 4. Hyperlipidemia 5. DVT prophylaxis - Subcu heparin 6. Disposition - Pending PT/OT eval
[2024-12-13] MEDS ORDERED: DRISDOL (VITAMIN D=ERGOCALCIFEROL) 50000 UNIT CAP PO SCH (07:00)
[2024-12-13 08:14] LABS: Absolute Eosinophils 0.2 K/uL (0-0.5); Absolute Lymphocytes (CBC) 1.2 K/uL (0.7-4.9); Absolute Monocytes 0.4 K/uL (0.1-1.3); Basophils % 0.4 % (0-1.3); Eosinophils % 2.9 % (0-4.4); Hematocrit 27.8 % (36.0-45.0); Hemoglobin 9.7 g/dL (12.0-15.0); Lymphocytes % 17.7 % (15.3-44.8); MCH 29.8 pg (27.0-35.0); MCHC 34.8 g/dL (32.0-36.0); MCV 85.7 fL (80-100); Monocytes % 6.4 % (3.3-12.3); Neutrophils % 72.6 % (41.7-73.7); Platelets 208 thou/uL (152-406); RBC Red Blood Cell Count 3.25 M/uL (3.86-4.86); Red Cell Distribution Width 15.4 % (12.1-15.2)
[2024-12-13 08:27] LABS: Anion Gap 9.1 mEq/L (5.0-15.0); Potassium 5.1 mEq/L (3.5-5.1)
--- NOTE | 2024-12-13 11:26 | P.PN ---
Subjective Date of Service: 12/13/24 Chief Complaint: Bilateral lower extremity swelling No complaints Review of Systems 10-point ROS is otherwise unremarkable Physical Examination - Vital Signs Temperature: 98.4 F Blood Pressure: 185/77 Pulse: 83 Respirations: 22 Pulse Ox (%): 95 - Physical Exam General: Alert, Oriented x3 HEENT: Atraumatic Neck: Supple Respiratory: Normal air movement Cardiovascular: No edema, Normal pulses Gastrointestinal: Normal bowel sounds, Soft and benign, Non-distended Neurological: Normal gait, Normal speech Assessment And Plan - Plan 1. Acute on CKD III -Renal ultrasound negative obstructive uropathy - Creatinine slightly improved, relatively stable -Discontinued IV Lasix -Continue gentle hydration. -At bedside, IV fluids not running despite active order in place. Informed nurse to resume LR at 50 mL an hour as ordered 2. Acute on chronic CHF diastolic dysfunction -2D echo showed LVEF of 60% -Patient currently euvolemic 3. Hypertension 4. Hyperlipidemia 5. DVT prophylaxis - Subcu heparin 6. Disposition - Pending PT/OT eval
[2024-12-13] MEDS: SODIUM ZIRCONIUM CYCLOSILICATE 10 GM/PKT PO SCH (18:00)
[2024-12-14 05:51] LABS: Absolute Eosinophils 0.2 K/uL (0-0.5); Absolute Lymphocytes (CBC) 1.1 K/uL (0.7-4.9); Absolute Monocytes 0.4 K/uL (0.1-1.3); Absolute Neutrophil 4.9 K/uL (1.8-8.0); Basophils % 0.5 % (0-1.3); Eosinophils % 3.4 % (0-4.4); Hematocrit 27.7 % (36.0-45.0); Hemoglobin 9.7 g/dL (12.0-15.0); Lymphocytes % 16.2 % (15.3-44.8); MCH 29.5 pg (27.0-35.0); MCHC 34.8 g/dL (32.0-36.0); MCV 84.6 fL (80-100); MPV 8.5 fL (7.6-11.3); Monocytes % 6.7 % (3.3-12.3); Neutrophils % 73.2 % (41.7-73.7); Platelets 238 thou/uL (152-406); RBC Red Blood Cell Count 3.28 M/uL (3.86-4.86)
[2024-12-14 06:16] LABS: Anion Gap 7.2 mEq/L (5.0-15.0); Potassium 5.2 mEq/L (3.5-5.1)
--- NOTE | 2024-12-14 07:11 | P.PN ---
Date of Service: 12/14/24 Subjective Chief Complaint: Bilateral lower extremity swelling Plan to discharge home with home health, PT OT eval ordered Worsening kidney function, nephrology following, Review of Systems 10-point ROS is otherwise unremarkable Physical Examination - Vital Signs reviewed - Physical Exam General: Alert, Oriented x3, afebrile HEENT: Atraumatic Neck: Supple Respiratory: Normal air movement, Cardiovascular:,, Normal pulses,+2 edema, moderate weakness Gastrointestinal: Normal bowel sounds, Soft and benign, Neurological: Normal gait, Normal speech Assessment And Plan - Plan 1. Acute on CKD III -Renal ultrasound negative obstructive uropathy - Creatinine slightly improved, relatively stable -Discontinued IV Lasix -Continue gentle hydration. -At bedside, IV fluids not running despite active order in place. Informed nurse to resume LR at 50 mL an hour as ordered 2. Acute on chronic CHF diastolic dysfunction -2D echo showed LVEF of 60% -Patient currently euvolemic 3. Hypertension 4. Hyperlipidemia 5. DVT prophylaxis - Subcu heparin 6. Disposition - Pending PT/OT eval
[2024-12-14 09:42] LABS: Anion Gap 9.2 mEq/L (5.0-15.0); Potassium 5.2 mEq/L (3.5-5.1)
[2024-12-14] MEDS: AMLODIPINE 5 MG TAB PO SCH ×2 (09:45→20:55)
[2024-12-14] MEDS: SODIUM ZIRCONIUM CYCLOSILICATE 10 GM/PKT PO ONE (10:37)
--- NOTE | 2024-12-14 10:51 | P.PN ---
Date of Service: 12/14/24 Vital Signs Temp Pulse Resp BP Pulse Ox 98.7 F 97 H 17 161/68 H 94 12/14/24 08:00 12/14/24 08:00 12/14/24 08:00 12/14/24 10:45 12/14/24 08:00 Medications Acetaminophen (Acetaminophen 325 Mg Tablet) 650 mg PO Q4HP PRN PRN Reason: Pain scale 2-4 (Mild) Last Admin: 12/11/24 11:48 Dose: 650 mg Albuterol Sulfate (Albuterol 2.5 Mg/3 Ml Neb Trini) 2.5 mg IH [id number] [facility] Last Admin: 12/14/24 08:38 Dose: 2.5 mg Allopurinol (Allopurinol 300 Mg Tab) 300 mg PO DAILY [facility] Last Admin: 12/14/24 09:45 Dose: 300 mg Amlodipine Besylate (Amlodipine 5 Mg Tab) 5 mg PO BID [facility] Aspirin (Aspirin Ec 81 Mg Tab) 81 mg PO DAILY [facility] Last Admin: 12/14/24 09:46 Dose: 81 mg Atorvastatin Calcium (Atorvastatin 10 Mg Tab) 10 mg PO BEDTIME [facility] Last Admin: 12/13/24 21:09 Dose: 10 mg Carvedilol (Carvedilol 25 Mg Tab) 25 mg PO BID [facility] Last Admin: 12/14/24 09:46 Dose: 25 mg Ergocalciferol (Drisdol (Vitamin D=Ergocalciferol) 32812 Unit Cap) 50,000 unit PO SEECOM [facility] Heparin Sodium (Porcine) (Heparin 5000 Unit/Ml 1 Ml Vial) 5,000 unit SQ Q12HR [facility] Last Admin: 12/14/24 09:45 Dose: 5,000 unit Hydralazine HCl (Hydralazine Hcl 20 Mg/Ml Vial) 10 mg IV Q6HP PRN PRN Reason: FOR SBP>160 OR DBP>100 [facility] Last Admin: 12/14/24 08:28 Dose: 10 mg Hydralazine HCl (Hydralazine Hcl 25 Mg Tablet) 100 mg PO TID [facility] Last Admin: 12/14/24 09:44 Dose: 100 mg Ondansetron HCl (Ondansetron 4 Mg/2 Ml Vial) 4 mg IV Q6HP PRN PRN Reason: NAUSEA / VOMITING Last Admin: 12/10/24 13:02 Dose: 4 mg Pantoprazole Sodium (Pantoprazole 40mg Tablet) 40 mg PO DAILY [facility]; Protocol Last Admin: 12/14/24 09:46 Dose: 40 mg Assessment/ Plan: Nephrology No dyspnea No chest pain +Appetite No acute events overnight Vitals, medications, blood work and imaging reviewed in the chart General: In no apparent distress, Cooperative, Obese HEENT: Atraumatic Neck: Supple Respiratory: Normal air movement, Diminished Cardiovascular: Regular rate/rhythm, LE Edema 1+ Gastrointestinal: Soft and benign, Non-distended Musculoskeletal: No clubbing, No contractures Integumentary: No rashes, No cyanosis Neurological: Normal speech Laboratory Data (last 24 hrs) 12/08/24 12/08/24 12/08/24 00:50 00:50 00:50 WBC 8.30 Hgb 10.9 L Hct 32.0 L Plt Count 254 PT 10.8 INR 0.94 Sodium 137 Potassium 4.1 BUN 66 H Creatinine 3.60 H Glucose 123 H Magnesium 2.1 Total Bilirubin 0.3 AST 15 ALT 20 Alkaline Phosphatase 75 Imagings Data: Chest Single View CLINICAL HISTORY: CHEST PAIN COMPARISON: None TECHNIQUE: Single AP view of the chest. FINDINGS: Lung volumes adequate. Cardiac silhouette is normal in size. No pneumothorax. No large pleural effusion. No focal consolidation. No acute bony finding. IMPRESSION: No evidence of acute cardiopulmonary disease. EXAMINATION: US Extrem Venous W Compress Ryan CLINICAL INDICATION: [facility] MAIN Swelling TECHNIQUE: Complete bilateral duplex sonography of the BILATERAL lower extremity veins was performed. The examination included compression for vein patency, color Doppler imaging and flow augmentation in response to distal compression of the distal external iliac, common femoral, femoral, popliteal, tibial, and great and small saphenous veins. COMPARISON: No prior exam. FINDINGS: Duplex sonography testing of the veins of the BILATERAL lower extremity was performed. Color flow imaging shows all veins to be compressible with [id number] color filling. Pulsatile and phasic flow is present within all lower extremity deep and superficial veins examined. Elongated mildly complex right popliteal fossa 6.5 cm cyst,, and elongated left popliteal fossa 5.6 cm cyst, suggesting nonruptured Landin's cysts. IMPRESSION: There is no deep vein or superficial vein thrombosis bilaterally. 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 EXAMINATION: US RETROPERITONEUM CLINICAL INDICATION: [facility] MAIN gio TECHNIQUE: Real-time ultrasonography of the kidneys and bladder was performed. COMPARISON: No prior exam. FINDINGS: RIGHT KIDNEY: Right renal length measurement: 8.7 cm. Normal size. Increased cortical echogenicity and mild cortical thinning.. No calculus, solid mass or hydronephrosis. Multiple anechoic cortical cysts, largest at the mid to lower pole measuring 4.3 x 4.1 x 3.8 cm. LEFT KIDNEY: Left renal length measurement: 9.4 cm. Normal in size. Increased cortical echogenicity and mild cortical thinning. No calculus, solid mass or hydronephrosis. Exophytic lateral cortical 2.1 cm anechoic cyst. URINARY BLADDER: Normal. ADDITIONAL FINDINGS: None. IMPRESSION: Increased bilateral renal cortical echogenicity and mild cortical thinning. Findings suggest long-standing medical renal disease. Bilateral benign-appearing cortical cysts as above. LEFT VENTRICULAR WALL MOTION: NORMAL DOPPLER/COLOR FLOW: GRADE I DIASTOLIC DYSFUNCTION 1. NORMAL LEFT VENTRICULAR SYSTOLIC FUNCTION, EJECTION FRACTION 60-65%, NORMAL WALL MOTION 2. GRADE I DIASTOLIC DYSFUNCTION 3. NORMAL FILLING PRESSURE (RIGHT VENTRICULAR PRESSURE 0-5 mmHg) 4. MILD PULMONARY HYPERTENSION (RIGHT VENTRICULAR SYSTOLIC PRESSURE 40-45 mmHg) Conclusions/Impression: Stage III GIO may be due to hypovolemia CKD IV with Proteinuria (Serum Cr 3.2 on 11-16-24) -No NSAIDs -Discontinue IVF Hyperkalemia -Lokelma X1 HTN with CKD/ CHF -Continue Coreg -Continue Hydralazine Diastolic CHF, chronic Mild Pulmonary HTN -Daily weight -Lasix prn Hypoalbuminemia -Encourage nutrition Anemia in chronic illness -Monitor H&H Hospitalist note reviewed Case reviewed with Dr. Cha
--- NOTE | 2024-12-14 15:29 | P.PN ---
This is an attestation to [employer] STUDY STATISTICIAN note. Subjective: No chest pain. c/o shortness of breath. No nausea or vomiting. No abdominal pain. No obvious bleeding. Looks comfortable in the bed. Objective: General appearance: Alert and comfortable CVS: Normal S1 and S2 Lungs: Clear to auscultation bilaterally Abdomen: Soft, bowel sounds present, no tenderness Extremities: mild b/l lower extremity edema 89-year-old patient with CHF and GIO, poorly controlled blood pressure, adjusted blood pressure medications, mild increase in potassium, discussed with nephrology, will give a low-dose of Lasix today, fluids discontinued by nephrology.
[2024-12-14] MEDS: FUROSEMIDE 20 MG/ 2ML VIAL IV ONE (17:26)
--- NOTE | 2024-12-15 00:03 | RAD REPORT ---
EXAMINATION: UPPER EXTREMITY VENOUS UNILATE CLINICAL INDICATION: Female, 89 years old. [facility] MAIN R/O DVT TECHNIQUE: Complete venous duplex sonography of the left upper extremity was performed. The examinati on included compression for vein patency, color Doppler imaging and flow augmentation in response to distal compression of the internal jugular, brachiocephalic, subclavian, axillary, brachial, radia l, ulnar, cephalic and basilic veins. COMPARISON: No prior exam. FINDINGS: Duplex sonography testing of the veins of the right upper extremity is completed. Subocclusive thromb us seen along the aortic within the basilic vein and axillary vein. Color flow imaging shortening the remainder of the left upper extremity veins to be compressible with appropriate color filling. IMPRESSION: Deep venous thrombosis along the axillary vein, surrounding the PICC, and extending along the basilic vein.
--- NOTE | 2024-12-15 05:06 | P.PN ---
Date of Service: 12/15/24 Called by radiology earlier to discuss ultrasound findings. DVT along the PICC. Will start Kobe
[2024-12-15 05:28] LABS: Absolute Basophils 0.1 K/uL (0-0.5); Absolute Eosinophils 0.1 K/uL (0-0.5); Absolute Lymphocytes (CBC) 1.1 K/uL (0.7-4.9); Absolute Monocytes 0.5 K/uL (0.1-1.3); Absolute Neutrophil 6.2 K/uL (1.8-8.0); Basophils % 0.9 % (0-1.3); Eosinophils % 1.6 % (0-4.4); Hematocrit 28.9 % (36.0-45.0); Lymphocytes % 13.5 % (15.3-44.8); MCH 29.1 pg (27.0-35.0); MCHC 34.7 g/dL (32.0-36.0); MCV 83.9 fL (80-100); MPV 8.4 fL (7.6-11.3); Monocytes % 5.9 % (3.3-12.3); Neutrophils % 78.1 % (41.7-73.7); Nucleated Red Blood Cells % 0.1 % (0-0); Platelets 246 thou/uL (152-406); RBC Red Blood Cell Count 3.44 M/uL (3.86-4.86); Red Cell Distribution Width 15.2 % (12.1-15.2)
[2024-12-15] MEDS: SODIUM ZIRCONIUM CYCLOSILICATE 10 GM/PKT PO ONE (09:37)
[2024-12-15] MEDS: APIXABAN 5 MG TABLET PO SCH (09:38)
[2024-12-15] MEDS: cloNIDine HCL 0.1 MG TAB PO ONE (18:21)
--- NOTE | 2024-12-15 20:47 | P.PN ---
Date of Service: 12/15/24 Vital Signs Temp Pulse Resp BP Pulse Ox 98.5 F 85 20 182/70 H 96 12/15/24 16:00 12/15/24 18:21 12/15/24 16:00 12/15/24 18:21 12/15/24 16:00 Medications Acetaminophen (Acetaminophen 325 Mg Tablet) 650 mg PO Q4HP PRN PRN Reason: Pain scale 2-4 (Mild) Last Admin: 12/11/24 11:48 Dose: 650 mg Albuterol Sulfate (Albuterol 2.5 Mg/3 Ml Neb Trini) 2.5 mg IH [id number] [facility] Last Admin: 12/15/24 19:01 Dose: 2.5 mg Allopurinol (Allopurinol 300 Mg Tab) 300 mg PO DAILY [facility] Last Admin: 12/15/24 09:00 Dose: 300 mg Amlodipine Besylate (Amlodipine 5 Mg Tab) 5 mg PO BID [facility] Last Admin: 12/15/24 09:41 Dose: 5 mg Apixaban (Apixaban 5 Mg Tablet) 5 mg PO BID [facility] Last Admin: 12/15/24 09:38 Dose: 5 mg Aspirin (Aspirin Ec 81 Mg Tab) 81 mg PO DAILY [facility] Last Admin: 12/15/24 09:38 Dose: 81 mg Atorvastatin Calcium (Atorvastatin 10 Mg Tab) 10 mg PO BEDTIME [facility] Last Admin: 12/14/24 20:55 Dose: 10 mg Carvedilol (Carvedilol 25 Mg Tab) 50 mg PO BID 6AM 6PM [facility] Ergocalciferol (Drisdol (Vitamin D=Ergocalciferol) 82376 Unit Cap) 50,000 unit PO SEECOM [facility] Hydralazine HCl (Hydralazine Hcl 20 Mg/Ml Vial) 10 mg IV Q6HP PRN PRN Reason: FOR SBP>160 OR DBP>100 [facility] Last Admin: 12/14/24 17:26 Dose: 10 mg Hydralazine HCl (Hydralazine Hcl 25 Mg Tablet) 100 mg PO TID [facility] Last Admin: 12/15/24 13:37 Dose: 100 mg Ondansetron HCl (Ondansetron 4 Mg/2 Ml Vial) 4 mg IV Q6HP PRN PRN Reason: NAUSEA / VOMITING Last Admin: 12/10/24 13:02 Dose: 4 mg Pantoprazole Sodium (Pantoprazole 40mg Tablet) 40 mg PO DAILY [facility]; Protocol Last Admin: 12/15/24 09:38 Dose: 40 mg Assessment/ Plan: Nephrology No dyspnea No chest pain +Appetite No acute events overnight Vitals, medications, blood work and imaging reviewed in the chart General: In no apparent distress, Cooperative, Obese HEENT: Atraumatic Neck: Supple Respiratory: Normal air movement, Diminished Cardiovascular: Regular rate/rhythm, LE Edema 1+ Gastrointestinal: Soft and benign, Non-distended Musculoskeletal: No clubbing, No contractures Integumentary: No rashes, No cyanosis Neurological: Normal speech Laboratory Data (last 24 hrs) 12/08/24 12/08/24 12/08/24 00:50 00:50 00:50 WBC 8.30 Hgb 10.9 L Hct 32.0 L Plt Count 254 PT 10.8 INR 0.94 Sodium 137 Potassium 4.1 BUN 66 H Creatinine 3.60 H Glucose 123 H Magnesium 2.1 Total Bilirubin 0.3 AST 15 ALT 20 Alkaline Phosphatase 75 Imagings Data: Chest Single View CLINICAL HISTORY: CHEST PAIN COMPARISON: None TECHNIQUE: Single AP view of the chest. FINDINGS: Lung volumes adequate. Cardiac silhouette is normal in size. No pneumothorax. No large pleural effusion. No focal consolidation. No acute bony finding. IMPRESSION: No evidence of acute cardiopulmonary disease. EXAMINATION: US Extrem Venous W Compress Ryan CLINICAL INDICATION: [facility] MAIN Swelling TECHNIQUE: Complete bilateral duplex sonography of the BILATERAL lower extremity veins was performed. The examination included compression for vein patency, color Doppler imaging and flow augmentation in response to distal compression of the distal external iliac, common femoral, femoral, popliteal, tibial, and great and small saphenous veins. COMPARISON: No prior exam. FINDINGS: Duplex sonography testing of the veins of the BILATERAL lower extremity was performed. Color flow imaging shows all veins to be compressible with [id number] color filling. Pulsatile and phasic flow is present within all lower extremity deep and superficial veins examined. Elongated mildly complex right popliteal fossa 6.5 cm cyst,, and elongated left popliteal fossa 5.6 cm cyst, suggesting nonruptured Landin's cysts. IMPRESSION: There is no deep vein or superficial vein thrombosis bilaterally. 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 EXAMINATION: US RETROPERITONEUM CLINICAL INDICATION: [facility] MAIN gio TECHNIQUE: Real-time ultrasonography of the kidneys and bladder was performed. COMPARISON: No prior exam. FINDINGS: RIGHT KIDNEY: Right renal length measurement: 8.7 cm. Normal size. Increased cortical echogenicity and mild cortical thinning.. No calculus, solid mass or hydronephrosis. Multiple anechoic cortical cysts, largest at the mid to lower pole measuring 4.3 x 4.1 x 3.8 cm. LEFT KIDNEY: Left renal length measurement: 9.4 cm. Normal in size. Increased cortical echogenicity and mild cortical thinning. No calculus, solid mass or hydronephrosis. Exophytic lateral cortical 2.1 cm anechoic cyst. URINARY BLADDER: Normal. ADDITIONAL FINDINGS: None. IMPRESSION: Increased bilateral renal cortical echogenicity and mild cortical thinning. Findings suggest long-standing medical renal disease. Bilateral benign-appearing cortical cysts as above. LEFT VENTRICULAR WALL MOTION: NORMAL DOPPLER/COLOR FLOW: GRADE I DIASTOLIC DYSFUNCTION 1. NORMAL LEFT VENTRICULAR SYSTOLIC FUNCTION, EJECTION FRACTION 60-65%, NORMAL WALL MOTION 2. GRADE I DIASTOLIC DYSFUNCTION 3. NORMAL FILLING PRESSURE (RIGHT VENTRICULAR PRESSURE 0-5 mmHg) 4. MILD PULMONARY HYPERTENSION (RIGHT VENTRICULAR SYSTOLIC PRESSURE 40-45 mmHg) Conclusions/Impression: Stage III GIO may be due to hypovolemia CKD IV with Proteinuria (Serum Cr 3.2 on 11-16-24) -No NSAIDs Hyperkalemia -Lokelma X1 HTN with CKD/ CHF -Increase Coreg -Continue Hydralazine Diastolic CHF, chronic Mild Pulmonary HTN -Daily weight -Lasix prn Hypoalbuminemia -Encourage nutrition Anemia in chronic illness -Monitor H&H Hospitalist note reviewed
[2024-12-16 06:16] LABS: Absolute Basophils 0.1 K/uL (0-0.5); Absolute Eosinophils 0.1 K/uL (0-0.5); Absolute Monocytes 0.5 K/uL (0.1-1.3); Absolute Neutrophil 5.9 K/uL (1.8-8.0); Basophils % 0.9 % (0-1.3); Hematocrit 27.7 % (36.0-45.0); Hemoglobin 9.7 g/dL (12.0-15.0); Lymphocytes % 13.4 % (15.3-44.8); MCH 29.4 pg (27.0-35.0); MCV 84.2 fL (80-100); Monocytes % 6.9 % (3.3-12.3); Neutrophils % 77.8 % (41.7-73.7); Nucleated Red Blood Cells % 0.1 % (0-0); Platelets 220 thou/uL (152-406); RBC Red Blood Cell Count 3.29 M/uL (3.86-4.86); Red Cell Distribution Width 15.4 % (12.1-15.2)
[2024-12-16] MEDS: carvediloL 25 MG TAB PO SCH (06:26)
[2024-12-16 06:31] LABS: Anion Gap 10.7 mEq/L (5.0-15.0); Potassium 4.7 mEq/L (3.5-5.1); Uric Acid 3.9 mg/dL (2.6-6.0)
--- NOTE | 2024-12-16 21:02 | P.PN ---
Date of Service: 12/16/24 Vital Signs Temp Pulse Resp BP Pulse Ox 98.8 F 83 16 125/60 98 12/16/24 16:00 12/16/24 16:00 12/16/24 16:00 12/16/24 16:00 12/16/24 16:00 Medications Acetaminophen (Acetaminophen 325 Mg Tablet) 650 mg PO Q4HP PRN PRN Reason: Pain scale 2-4 (Mild) Last Admin: 12/11/24 11:48 Dose: 650 mg Albuterol Sulfate (Albuterol 2.5 Mg/3 Ml Neb Trini) 2.5 mg IH [id number] Last Admin: 12/16/24 19:25 Dose: 2.5 mg Allopurinol (Allopurinol 300 Mg Tab) 300 mg PO DAILY [facility] Last Admin: 12/16/24 09:15 Dose: 300 mg Amlodipine Besylate (Amlodipine 5 Mg Tab) 5 mg PO BID [facility] Last Admin: 12/16/24 09:16 Dose: 5 mg Apixaban (Apixaban 5 Mg Tablet) 5 mg PO BID [facility] Last Admin: 12/16/24 09:16 Dose: 5 mg Aspirin (Aspirin Ec 81 Mg Tab) 81 mg PO DAILY [facility] Last Admin: 12/16/24 09:16 Dose: 81 mg Atorvastatin Calcium (Atorvastatin 10 Mg Tab) 10 mg PO BEDTIME [facility] Last Admin: 12/15/24 21:21 Dose: 10 mg Carvedilol (Carvedilol 25 Mg Tab) 50 mg PO BID 6AM 6PM [facility] Last Admin: 12/16/24 16:51 Dose: 50 mg Ergocalciferol (Drisdol (Vitamin D=Ergocalciferol) 38100 Unit Cap) 50,000 [facility] Hydralazine HCl (Hydralazine Hcl 20 Mg/Ml Vial) 10 mg IV Q6HP PRN PRN Reason: FOR SBP>160 OR DBP>100 [facility] Last Admin: 12/14/24 17:26 Dose: 10 mg Hydralazine HCl (Hydralazine Hcl 25 Mg Tablet) 100 mg PO TID [facility] Last Admin: 12/16/24 16:51 Dose: 100 mg Ondansetron HCl (Ondansetron 4 Mg/2 Ml Vial) 4 mg IV Q6HP PRN PRN Reason: NAUSEA / VOMITING Last Admin: 12/10/24 13:02 Dose: 4 mg Pantoprazole Sodium (Pantoprazole 40mg Tablet) 40 mg PO DAILY [facility]; Protocol Last Admin: 12/16/24 09:16 Dose: 40 mg Assessment/ Plan: Nephrology No dyspnea No chest pain +Appetite No acute events overnight Vitals, medications, blood work and imaging reviewed in the chart General: In no apparent distress, Cooperative, Obese HEENT: Atraumatic Neck: Supple Respiratory: Normal air movement, Diminished Cardiovascular: Regular rate/rhythm, LE Edema trace Gastrointestinal: Soft and benign, Non-distended Musculoskeletal: No clubbing, No contractures Integumentary: No rashes, No cyanosis Neurological: Normal speech Laboratory Data (last 24 hrs) 12/08/24 12/08/24 12/08/24 00:50 00:50 00:50 WBC 8.30 Hgb 10.9 L Hct 32.0 L Plt Count 254 PT 10.8 INR 0.94 Sodium 137 Potassium 4.1 BUN 66 H Creatinine 3.60 H Glucose 123 H Magnesium 2.1 Total Bilirubin 0.3 AST 15 ALT 20 Alkaline Phosphatase 75 Imagings Data: Chest Single View CLINICAL HISTORY: CHEST PAIN COMPARISON: None TECHNIQUE: Single AP view of the chest. FINDINGS: Lung volumes adequate. Cardiac silhouette is normal in size. No pneumothorax. No large pleural effusion. No focal consolidation. No acute bony finding. IMPRESSION: No evidence of acute cardiopulmonary disease. EXAMINATION: US Extrem Venous W Compress Ryan CLINICAL INDICATION: [facility] MAIN Swelling TECHNIQUE: Complete bilateral duplex sonography of the BILATERAL lower extremity veins was performed. The examination included compression for vein patency, color Doppler imaging and flow augmentation in response to distal compression of the distal external iliac, common femoral, femoral, popliteal, tibial, and great and small saphenous veins. COMPARISON: No prior exam. FINDINGS: Duplex sonography testing of the veins of the BILATERAL lower extremity was performed. Color flow imaging shows all veins to be compressible with [id number] color filling. Pulsatile and phasic flow is present within all lower extremity deep and superficial veins examined. Elongated mildly complex right popliteal fossa 6.5 cm cyst,, and elongated left popliteal fossa 5.6 cm cyst, suggesting nonruptured Landin's cysts. IMPRESSION: There is no deep vein or superficial vein thrombosis bilaterally. 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 EXAMINATION: US RETROPERITONEUM CLINICAL INDICATION: [facility] MAIN gio TECHNIQUE: Real-time ultrasonography of the kidneys and bladder was performed. COMPARISON: No prior exam. FINDINGS: RIGHT KIDNEY: Right renal length measurement: 8.7 cm. Normal size. Increased cortical echogenicity and mild cortical thinning.. No calculus, solid mass or hydronephrosis. Multiple anechoic cortical cysts, largest at the mid to lower pole measuring 4.3 x 4.1 x 3.8 cm. LEFT KIDNEY: Left renal length measurement: 9.4 cm. Normal in size. Increased cortical echogenicity and mild cortical thinning. No calculus, solid mass or hydronephrosis. Exophytic lateral cortical 2.1 cm anechoic cyst. URINARY BLADDER: Normal. ADDITIONAL FINDINGS: None. IMPRESSION: Increased bilateral renal cortical echogenicity and mild cortical thinning. Findings suggest long-standing medical renal disease. Bilateral benign-appearing cortical cysts as above. LEFT VENTRICULAR WALL MOTION: NORMAL DOPPLER/COLOR FLOW: GRADE I DIASTOLIC DYSFUNCTION 1. NORMAL LEFT VENTRICULAR SYSTOLIC FUNCTION, EJECTION FRACTION 60-65%, NORMAL WALL MOTION 2. GRADE I DIASTOLIC DYSFUNCTION 3. NORMAL FILLING PRESSURE (RIGHT VENTRICULAR PRESSURE 0-5 mmHg) 4. MILD PULMONARY HYPERTENSION (RIGHT VENTRICULAR SYSTOLIC PRESSURE 40-45 mmHg) Conclusions/Impression: Stage III GIO may be due to hypovolemia CKD IV with Proteinuria (Serum Cr 3.2 on 11-16-24) -No NSAIDs Hyperkalemia -Lokelma prn HTN with CKD/ CHF -Continue Coreg -Continue Amlodipine -Continue Hydralazine Diastolic CHF, chronic Mild Pulmonary HTN -Daily weight -Lasix prn Hypoalbuminemia -Encourage nutrition Anemia in chronic illness -Monitor H&H Hospitalist note reviewed
[2024-12-16] MEDS: HYDRALAZINE HCL 25 MG TABLET PO SCH (21:40)
[2024-12-17 06:12] LABS: Albumin 2.5 g/dL (3.4-5.0); Anion Gap 11.6 mEq/L (5.0-15.0); Potassium 4.6 mEq/L (3.5-5.1); Uric Acid 3.8 mg/dL (2.6-6.0)
[2024-12-17 07:14] LABS: Hepatitis B surface AG Interp. Nonreactive (Nonreactive)
[2024-12-17 07:15] LABS: Hepatitis B Surface Ab - Quant < 3.10 mIU/mL (<8.0)
[2024-12-17 07:16] LABS: HBsAG Nonreactive Report Report
[2024-12-17 10:38] VITALS: O2SAT 94
[2024-12-17 12:19] VITALS: BP 174/77; TEMP 98.7
--- NOTE | 2024-12-17 20:25 | P.PN ---
Date of Service: 12/17/24 Vital Signs Temp Pulse Resp BP Pulse Ox 98.7 F 89 16 174/77 H 94 12/17/24 12:00 12/17/24 12:00 12/17/24 12:00 12/17/24 12:00 12/17/24 12:00 Assessment/ Plan: Nephrology No dyspnea No chest pain +Appetite No acute events overnight Vitals, medications, blood work and imaging reviewed in the chart General: In no apparent distress, Cooperative, Obese HEENT: Atraumatic Neck: Supple Respiratory: Normal air movement, Diminished Cardiovascular: Regular rate/rhythm, LE Edema trace Gastrointestinal: Soft and benign, Non-distended Musculoskeletal: No clubbing, No contractures Integumentary: No rashes, No cyanosis Neurological: Normal speech Laboratory Data (last 24 hrs) 12/08/24 12/08/24 12/08/24 00:50 00:50 00:50 WBC 8.30 Hgb 10.9 L Hct 32.0 L Plt Count 254 PT 10.8 INR 0.94 Sodium 137 Potassium 4.1 BUN 66 H Creatinine 3.60 H Glucose 123 H Magnesium 2.1 Total Bilirubin 0.3 AST 15 ALT 20 Alkaline Phosphatase 75 Imagings Data: Chest Single View CLINICAL HISTORY: CHEST PAIN COMPARISON: None TECHNIQUE: Single AP view of the chest. FINDINGS: Lung volumes adequate. Cardiac silhouette is normal in size. No pneumothorax. No large pleural effusion. No focal consolidation. No acute bony finding. IMPRESSION: No evidence of acute cardiopulmonary disease. EXAMINATION: US Extrem Venous W Compress Ryan CLINICAL INDICATION: [facility] MAIN Swelling TECHNIQUE: Complete bilateral duplex sonography of the BILATERAL lower extremity veins was performed. The examination included compression for vein patency, color Doppler imaging and flow augmentation in response to distal compression of the distal external iliac, common femoral, femoral, popliteal, tibial, and great and small saphenous veins. COMPARISON: No prior exam. FINDINGS: Duplex sonography testing of the veins of the BILATERAL lower extremity was performed. Color flow imaging shows all veins to be compressible with [id number] color filling. Pulsatile and phasic flow is present within all lower extremity deep and superficial veins examined. Elongated mildly complex right popliteal fossa 6.5 cm cyst,, and elongated left popliteal fossa 5.6 cm cyst, suggesting nonruptured Landin's cysts. IMPRESSION: There is no deep vein or superficial vein thrombosis bilaterally. 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 EXAMINATION: US RETROPERITONEUM CLINICAL INDICATION: [facility] MAIN gio TECHNIQUE: Real-time ultrasonography of the kidneys and bladder was performed. COMPARISON: No prior exam. FINDINGS: RIGHT KIDNEY: Right renal length measurement: 8.7 cm. Normal size. Increased cortical echogenicity and mild cortical thinning.. No calculus, solid mass or hydronephrosis. Multiple anechoic cortical cysts, largest at the mid to lower pole measuring 4.3 x 4.1 x 3.8 cm. LEFT KIDNEY: Left renal length measurement: 9.4 cm. Normal in size. Increased cortical echogenicity and mild cortical thinning. No calculus, solid mass or hydronephrosis. Exophytic lateral cortical 2.1 cm anechoic cyst. URINARY BLADDER: Normal. ADDITIONAL FINDINGS: None. IMPRESSION: Increased bilateral renal cortical echogenicity and mild cortical thinning. Findings suggest long-standing medical renal disease. Bilateral benign-appearing cortical cysts as above. LEFT VENTRICULAR WALL MOTION: NORMAL DOPPLER/COLOR FLOW: GRADE I DIASTOLIC DYSFUNCTION 1. NORMAL LEFT VENTRICULAR SYSTOLIC FUNCTION, EJECTION FRACTION 60-65%, NORMAL WALL MOTION 2. GRADE I DIASTOLIC DYSFUNCTION 3. NORMAL FILLING PRESSURE (RIGHT VENTRICULAR PRESSURE 0-5 mmHg) 4. MILD PULMONARY HYPERTENSION (RIGHT VENTRICULAR SYSTOLIC PRESSURE 40-45 mmHg) Conclusions/Impression: Stage III GIO may be due to hypovolemia CKD IV with Proteinuria (Serum Cr 3.2 on 11-16-24) -No NSAIDs Hyperkalemia -Lokelma prn HTN with CKD/ CHF -Continue Coreg -Continue Amlodipine -Continue Hydralazine Diastolic CHF, chronic Mild Pulmonary HTN -Daily weight -Lasix prn Hypoalbuminemia -Encourage nutrition Anemia in chronic illness -Monitor H&H Hospitalist note reviewed Case reviewed with hospitalist team
== END 2024-12-17 18:01 | disposition home health service (06) | DRG 291 ==
LOC: ER 00:02 → ERHOLD 03:47 → 2ND 06:28
PROVIDERS: ADMIT Family Medicine; ATTEND Hospitalist
PROC: 02HV33Z Insertion of Infusion Device into Superior Vena Cava, Percutaneous Approach (ICD-10-PCS; principal; 2024-12-08)
PROC: 0T9B70Z Drainage of Bladder with Drainage Device, Via Natural or Artificial Opening (ICD-10-PCS; 2024-12-11)
PROC: 4A033R1 Measurement of Arterial Saturation, Peripheral, Percutaneous Approach (ICD-10-PCS; 2024-12-13)
DX: I13.0 Hypertensive heart and chronic kidney disease with heart failure and stage 1 through stage 4 chronic kidney disease, or unspecified chronic kidney disease (principal); I50.33 Acute on chronic diastolic (congestive) heart failure; N17.9 Acute kidney failure, unspecified; Z68.41 Body mass index [BMI] 40.0-44.9, adult; N18.4 Chronic kidney disease, stage 4 (severe); D63.1 Anemia in chronic kidney disease; E66.9 Obesity, unspecified; N28.1 Cyst of kidney, acquired; E87.5 Hyperkalemia; F41.9 Anxiety disorder, unspecified; E78.5 Hyperlipidemia, unspecified; M10.9 Gout, unspecified; G62.9 Polyneuropathy, unspecified; I27.20 Pulmonary hypertension, unspecified; M19.90 Unspecified osteoarthritis, unspecified site; E88.09 Other disorders of plasma-protein metabolism, not elsewhere classified; R31.9 Hematuria, unspecified; Z88.5 Allergy status to narcotic agent; Z79.82 Long term (current) use of aspirin; Z79.02 Long term (current) use of antithrombotics/antiplatelets; Z79.899 Other long term (current) drug therapy
CPT/HCPCS: 36415; 70450; 71045; 76770; 80048; 80053; 80069; 80076; 81001; 82043; 82550; 82570; 83735; 83880; 84100; 84156; 84484; 84550; 85025; 85610; 86706; 87340; 93005; 93306; 93970; 93971; 94760; 96374; 96375; 97116; 97161; 97165; 97530; 99284; J0360; J1644; J1650; J1938; J2405; J2765; J7030; J7120; J7613

== ENCOUNTER 2025-04-29 15:17 | Emergency (ER) | payer OTHER ==
[2025-04-29 16:20] LABS: Absolute Lymphocytes (CBC) 1.5 K/uL (0.7-4.9); Hematocrit 25.3 % (36.0-45.0); Hemoglobin 8.5 g/dL (12.0-15.0); MCH 28.9 pg (27.0-35.0); MCHC 33.8 g/dL (32.0-36.0); MCV 85.5 fL (80-100); MPV 8.8 fL (7.6-11.3); Nucleated RBC Absolute Count 0.0 (0-0); Nucleated Red Blood Cells % 0.1 % (0-0); RBC Red Blood Cell Count 2.96 M/uL (3.86-4.86); White Blood Count 8.50 thou/uL (4.3-10.9)
[2025-04-29 16:26] LABS: PT Prothrombin Time 18.8 SECONDS (10-13.0); Protime INR 1.69
[2025-04-29] MEDS ORDERED: FENTANYL CITR 100 MCG/2 ML ONE ×2 (16:31→19:20)
[2025-04-29 16:46] LABS: Albumin 3.1 g/dL (3.4-5.0); Albumin/Globulin Ratio 0.7 (1.1-1.8); Alkaline Phosphatase 57 U/L (45-117); Anion Gap 12.0 mEq/L (5.0-15.0); BUN Blood Urea Nitrogen 70 mg/dL (7-18); Bilirubin Indirect, Calculated 0.3 mg/dL (0.2-0.8); Globulin 4.2 g/dL (2.3-3.5); Glucose Level 119 mg/dL (74-106); Magnesium 2.2 mg/dL (1.6-2.4); NT PRO-BNP 1271 pg/mL (<450); Potassium 5.0 mEq/L (3.5-5.1); Troponin High Sensitivity 14.7 pg/mL (<58.9)
[2025-04-29 16:47] LABS: ALT/SGPT < 14 U/L (13-56); AST/SGOT < 10 U/L (15-37)
--- NOTE | 2025-04-29 17:12 | RAD REPORT ---
EXAMINATION: XR Tib Fib Right CLINICAL INDICATION: Female, 89 years old. open wound TECHNIQUE: 2 view radiograph of the right tibia and fibula were obtained. COMPARISON: 08/30/2023 FINDINGS: No evidence of fracture or dislocation. Normal alignment. 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 No other focal bone lesion. Mineralization along the medial and lateral menisci. Vascular calcifications. The findings are stable. IMPRESSION: No acute osseous abnormalities. Chronic findings as above.
--- NOTE | 2025-04-29 17:14 | RAD REPORT ---
EXAMINATION: ONE VIEW CHEST XR CLINICAL INDICATION: Female, 89 years old.,edema TECHNIQUE: Frontal chest projection is submitted. Examination is limited by patient positioning and t echnique. COMPARISON: 12/11/2024 FINDINGS: The lungs are grossly clear of focal airspace opacities although suboptimal inspiratory effort somewh at limits evaluation. Prominence of the central vasculature and mild interstitial prominence again seen. No pneumothorax or sizable effusion. The heart is normal in size. Mediastinal contours are unre markable. IMPRESSION: Stable findings as above.
--- NOTE | 2025-04-29 18:44 | RAD REPORT ---
EXAMINATION: US Extrem Venous W Compress Ryan CLINICAL INDICATION: [facility] MAIN edema Bed Name: 9 Y TECHNIQUE: Complete bilateral duplex sonography of the BILATERAL lower extremity veins was performed. The examination included compression for vein patency, color Doppler imaging and flow augmentation in response to distal compression of the distal external iliac, common femoral, femoral, popliteal, t ibial, and great and small saphenous veins. COMPARISON: 12/08/2024 FINDINGS: Duplex sonography testing of the veins of the BILATERAL lower extremity was performed. Color flow kay ging shows all veins to be compressible with [id number] color filling. Pulsatile and phasic flow is present within all lower extremity deep and superficial veins examined. IMPRESSION: There is no deep vein or superficial vein thrombosis.
[2025-04-29] MEDS ORDERED: DOXYCYCLINE 100 MG CAP PO ONE (19:20)
[2025-04-29] MEDS ORDERED: CEFTRIAXONE 1000 MG/VIAL ONE (19:20)
--- NOTE | 2025-04-29 19:27 | EDPHYS ---
Physician Documentation [facility] Name: Niurka Gomes Age: 89 yrs Sex: Female : 1935 Arrival Date: 04/29/2025 Time: 15:17 Bed 8 Private MD: ED Physician Wilner Gordillo HPI: 04/29 15:35 This 89 yrs old Black Female presents to ER via Wheelchair with complaints of Wound cp Infection. 15:35 Patient is a 89-year-old female with past medical history significant for CHF, cp hypertension who presents to the emergency department for evaluation of wound to right lower leg. Patient is unsure of when wound to right lower leg first developed but reports that she has had a nurse that comes to her home to help manage the wound with topical antibiotics and send the wound. Patient does not remember any injury to that area as the cause of the wound. Patient denies any fevers, chills and/or sweats. Historical: - Allergies: 15:40 codeine sulfate (Unknown reaction, Vomiting, Upset stomach); ss - PMHx: 15:40 Arthritis; Congestive heart failure; irregular HR; Hypertension; Gout; ss - PSHx: 15:40 back and neck surgery; ss - Immunization history:: Adult Immunizations unknown. - Infectious Disease History:: Denies. - Social history:: Smoking status: Patient denies any tobacco usage or history of. ROS: 15:40 Cardiovascular: Positive for edema, Negative for chest pain, palpitations, cp 15:40 Eyes: Negative for injury, pain, redness, and discharge, cp 15:40 Constitutional: Negative for body aches, chills, fever, poor PO intake, 15:40 ENT: Negative for drainage from ear(s), ear pain, sore throat, difficulty swallowing, difficulty handling secretions, 15:40 Respiratory: Negative for cough, shortness of breath, wheezing, 15:40 Abdomen/GI: Negative for abdominal pain, vomiting, diarrhea, constipation, 15:40 Neuro: Negative for altered mental status, 15:40 All other systems are negative, Exam: 15:45 Constitutional: The patient appears in no acute distress, alert, awake, cp non-diaphoretic, non-toxic, well developed, well nourished, obese, 15:45 Head/Face: Normocephalic, atraumatic. cp 15:45 Eyes: Periorbital structures: appear normal, Conjunctiva: normal, no exudate, no cp injection, Sclera: no appreciated abnormality, Lids and lashes: appear normal, bilaterally, 15:45 ENT: External ear(s): are unremarkable, Nose: is normal, Mouth: Lips: moist, Oral mucosa: moist, Posterior pharynx: Airway: no evidence of obstruction, patent, 15:45 Chest/axilla: Inspection: normal, 15:45 Cardiovascular: Rate: normal, Edema: bilateral lower leg edema, pitted, JVD: is not appreciated, 15:45 Respiratory: the patient does not display signs of respiratory distress, Respirations: normal, no use of accessory muscles, no retractions, labored breathing, is not present, Breath sounds: decreased breath sounds, that are mild, throughout, 15:45 Abdomen/GI: Inspection: obese 15:45 Back: pain, is absent, ROM is normal, 15:45 Skin: moderate size wound right lower leg approximate size of baseball that extends through dermal layer of skin, mild erythema, scant purulent drainage noted on dressing. 15:45 Neuro: Orientation: to person, place \T\ time. Mentation: is normal, 16:22 ECG was reviewed by the Attending Physician. Vital Signs: 15:37 BP 126 / 56; Pulse 82; Resp 16; Temp 98(O); Pulse Ox 96% on R/A; Weight 102.06 kg; ss Height 5 ft. 5 in. ; 19:52 BP 134 / 76; Pulse 81; Resp 17; Temp 98; Pulse Ox 93% ; Pain 0/10; lg3 15:37 Body Mass Index 37.44 (102.06 kg, 165.1 cm) 19:52 Pain Scale: Adult lg3 [place] Coma Score: 19:52 Eye Response: spontaneous(4). Motor Response: obeys commands(6). Verbal Response: lg3 oriented(5). Total: 15. MDM: 15:22 Medical Screening Exam initiated cp 16:00 Differential diagnosis: dvt, cellulitis, abscess, sepsis, osteomyelitis. 19:27 Data reviewed: vital signs, nurses notes, lab test result(s), EKG, radiologic studies, plain films, ultrasound. 19:27 I considered the following discharge prescriptions or medication management in the emergency department Medications were administered in the Emergency Department. See OCT. 19:27 Independent interpretation of the following test(s) in the Emergency Department EKG: cp See my EKG interpretation above. Care significantly affected by the following chronic conditions: Hypertension, Congestive Heart Failure, Obesity. Counseling: I had a detailed discussion with the patient and/or guardian regarding the historical points, exam findings, and any diagnostic results supporting the discharge/admit diagnosis, lab results, radiology results. ED course: Patient has appt with wound care tomorrow for evaluation of wound to right lower leg. VSS. Will discharge to home with RX for oral antibiotic and continued monitoring. 04/29 15:34 Order name: Basic Metabolic Panel; Complete Time: 16:54 04/29 16:55 Interpretation: Normal except: GLUC 119; BUN 70; CRE 4.03; GFR 10. 04/29 15:34 Order name: CBC with Diff; Complete Time: 16:54 04/29 16:55 Interpretation: Normal except: RBC 2.96; HGB 8.5; HCT 25.3; RDW 15.6; MORENITA% 74.1. 04/29 15:34 Order name: LFT's; Complete Time: 16:54 04/29 17:44 Interpretation: Normal except: AST < 10; ALB 3.1; GLOB 4.2; A/G 0.7. 04/29 15:34 Order name: Magnesium; Complete Time: 16:54 04/29 15:34 Order name: NT PRO-BNP; Complete Time: 16:54 04/29 15:34 Order name: PT-INR; Complete Time: 16:54 04/29 15:34 Order name: Troponin HS; Complete Time: 16:54 04/29 15:34 Order name: XRAY Chest (1 view); Complete Time: 17:16 04/29 17:16 Interpretation: Report review. 04/29 15:34 Order name: US Extremity Venous W Compression Ryan; Complete Time: 18:46 04/29 18:46 Interpretation: Report reviewed. 04/29 15:34 Order name: XRAY Tib Fib RIGHT; Complete Time: 17:16 04/29 17:16 Interpretation: Report reviewed. 04/29 15:34 Order name: Cardiac monitoring; Complete Time: 16:21 04/29 15:34 Order name: EKG - Nurse/Tech; Complete Time: 16:21 04/29 15:34 Order name: IV Saline Lock; Complete Time: 16:16 04/29 15:34 Order name: Labs collected and sent; Complete Time: 16:16 04/29 15:34 Order name: O2 Per Protocol; Complete Time: 16:12 04/29 15:34 Order name: O2 Sat Monitoring; Complete Time: 16:12 EC:22 Rate is 76 beats/min. Rhythm is regular. OR interval is prolonged at 208 msec. QRS cp interval is normal. QT interval is normal. T waves are Inverted in lead aVR. Interpreted by me. Reviewed by me. Administered Medications: 16:35 Drug: fentaNYL (PF) IVP 25 mcg IVP once Route: IVP; Site: right antecubital; iw 19:54 Follow up: Response: No adverse reaction lg3 19:38 Drug: fentaNYL (PF) IVP 25 mcg IVP once Route: IVP; Site: right antecubital; lg3 19:53 Follow up: Response: No adverse reaction lg3 19:38 Drug: Rocephin IV 1 grams IV at calculated rate once; Given slow IV push per pharmacy lg3 instructions Route: IV; Rate: calculated rate; Site: right antecubital; 19:53 Follow up: Response: No adverse reaction; IV Status: Completed infusion lg3 19:38 Drug: Doxycycline PO 200 mg PO once Route: PO; lg3 19:53 Follow up: Response: No adverse reaction lg3 Disposition: 04/30 13:37 Co-signature as Attending Physician, Wilner Gordillo MD I agree with the assessment and magan plan of care. Disposition Summary: 04/29/25 19:27 Discharge Ordered Notes: Location: Home cp Problem: new cp Symptoms: have improved cp Condition: Stable cp Diagnosis - Leg Laceration/ Open wound of lower leg - right cp Followup: cp - With: Private Physician - When: wound care for evaluation of right lower leg wound - Reason: Recheck today's complaints Discharge Instructions: - Discharge Summary Sheet cp - Wound Infection cp - Wound Care, Adult cp Forms: - Medication Reconciliation Form cp - Antibiotic Education cp - Prescription Opioid Use cp - Patient Portal Instructions cp - Leadership Thank You Letter cp Prescriptions: - Doxycycline Monohydrate 100 mg Oral Tablet - take 1 tablet ORAL route every 12 hours for 10 days; 20 tablet; Refills: 0, cp Product Selection Permitted Signatures: Dispatcher [employer] EDMS Wilner Gordillo MD MD cha Williams, Irene, RN RN Laura Spears, RN RN Wilner Perez, PA-C PA-C cp Lacie Broussard, RN RN jl7 Kaylah Morales RN RN lg3 Corrections: (The following items were deleted from the chart) 04/29 15:35 15:35 BASIC METABOLIC PANEL+C.LAB.BRZ ordered. EDMS EDMS 15:35 15:35 CBC+H.LAB.BRZ ordered. EDMS EDMS 15:35 15:35 HEPATIC FUNCTION+C.LAB.BRZ ordered. EDMS EDMS 15:35 15:35 MAGNESIUM+C.LAB.BRZ ordered. EDMS EDMS 15:35 15:35 PROBNP+C.LAB.BRZ ordered. EDMS EDMS 15:35 15:35 PROTIME (+INR)+COAG.LAB.BRZ ordered. EDMS EDMS 15:35 15:35 Troponin High Sensitivity+C.LAB.BRZ ordered. EDMS EDMS 15:35 15:35 Chest Single View+RAD.RAD.BRZ ordered. EDMS EDMS 15:35 15:35 Extrem Venous W Compression Ryan+US.RAD.BRZ ordered. EDMS EDMS 15:35 15:35 Tib Fib Right+RAD.RAD.BRZ ordered. EDMS EDMS 15:52 15:52 This 89 yrs old Black Female presents to ER via Wheelchair with complaints of cp Wound Infection. cp
--- NOTE | 2025-04-29 19:27 | ER ---
Nurse's Notes [facility] Name: Niurka Gomes Age: 89 yrs Sex: Female : 1935 Arrival Date: 04/29/2025 Time: 15:17 Bed 8 Private MD: Diagnosis: Leg Laceration/ Open wound of lower leg-right Presentation: 04/29 15:37 Chief complaint: Patient states: Here for evaluation and treatment of wound to R lower ss extremity. Pt and caregiver are unsure if she is currently on abx therapy. Pt is being seen by home health provider. Coronavirus screen: Client denies travel out of the [place] in the last 14 days. Ebola Screen: Patient denies exposure to infectious person. Patient denies travel to an Ebola-affected area in the 21 days before illness onset. Initial Sepsis Screen: Does the patient meet any 2 criteria? No. Patient's initial sepsis screen is negative. Does the patient have a suspected source of infection? No. Patient's initial sepsis screen is negative. Risk Assessment: Do you want to hurt yourself or someone else? Patient reports no desire to harm self or others. Onset of symptoms is unknown. 15:37 Method Of Arrival: Wheelchair ss 15:37 Acuity: YESENIA 3 ss Historical: - Allergies: 15:40 codeine sulfate (Unknown reaction, Vomiting, Upset stomach); ss - PMHx: 15:40 Arthritis; Congestive heart failure; irregular HR; Hypertension; Gout; ss - PSHx: 15:40 back and neck surgery; ss - Immunization history:: Adult Immunizations unknown. - Infectious Disease History:: Denies. - Social history:: Smoking status: Patient denies any tobacco usage or history of. Screenin:17 [facility] ED Fall Risk Assessment (Adult) History of falling in the last 3 months, jl7 including since admission No falls in past 3 months (0 pts) Confusion or Disorientation No (0 pts) Intoxicated or Sedated No (0 pts) Impaired Gait Yes (1 pt) Mobility Assist Device Used Yes (1 pt) Altered Elimination No (0 pt) Score/Fall Risk Level 0 - 2 = Low Risk Oriented to surroundings, Maintained a safe environment. Abuse screen: Denies threats or abuse. Denies injuries from another. Nutritional screening: No deficits noted. Tuberculosis screening: No symptoms or risk factors identified. Assessment: 16:17 General: Appears in no apparent distress. uncomfortable, Behavior is calm, cooperative, jl7 appropriate for age. Pain: Complains of pain in right leg. Neuro: Hollins Agitation-Sedation Scale (RASS): 0 - Alert and Calm Level of Consciousness is awake, alert, obeys commands, Oriented to person, place, time, situation. Cardiovascular: Patient's skin is warm and dry. Respiratory: Airway is patent Respiratory effort is even, unlabored, Respiratory pattern is regular, symmetrical. Derm: Skin is pink, warm \T\ dry. Wound noted right hernandez. 19:52 Reassessment: Patient appears in no apparent distress at this time. Patient and/or lg3 family updated on plan of care and expected duration. Pain level reassessed. Patient is alert, oriented x 3, equal unlabored respirations, skin warm/dry/pink. wound care provided to leg. Patient denies pain at this time. Patient states feeling better. Patient states symptoms have improved. Vital Signs: 15:37 BP 126 / 56; Pulse 82; Resp 16; Temp 98(O); Pulse Ox 96% on R/A; Weight 102.06 kg; ss Height 5 ft. 5 in. ; 19:52 BP 134 / 76; Pulse 81; Resp 17; Temp 98; Pulse Ox 93% ; Pain 0/10; lg3 15:37 Body Mass Index 37.44 (102.06 kg, 165.1 cm) ss 19:52 Pain Scale: Adult lg3 [place] Coma Score: 19:52 Eye Response: spontaneous(4). Motor Response: obeys commands(6). Verbal Response: lg3 oriented(5). Total: 15. ED Course: 15:20 Patient arrived in ED. mr 15:22 Wilner Baires PA-C is PHCP. cp 15:22 Wilner Gordillo MD is Attending Physician. cp 15:29 Lacie Broussard RN is Primary Nurse. jl7 15:40 Triage completed. ss 15:40 Arm band placed on right wrist. ss 16:16 Initial lab(s) drawn, by nj, sent to lab. Inserted saline lock: 22 gauge in right jl7 antecubital area, using aseptic technique. Blood collected. Flushed with 10 mL NS. 16:17 Patient has correct armband on for positive identification. Provided Education on: use jl7 of call schreiber. 17:03 XRAY Chest (1 view) In Process Unspecified. EDMS 17:03 XRAY Tib Fib RIGHT In Process Unspecified. EDMS 17:20 US Extremity Venous W Compression Ryan In Process Unspecified. EDMS 19:52 No provider procedures requiring assistance completed. IV discontinued, intact, lg3 bleeding controlled, No redness/swelling at site. Pressure dressing applied. Administered Medications: 16:35 Drug: fentaNYL (PF) IVP 25 mcg IVP once Route: IVP; Site: right antecubital; iw 19:54 Follow up: Response: No adverse reaction lg3 19:38 Drug: fentaNYL (PF) IVP 25 mcg IVP once Route: IVP; Site: right antecubital; lg3 19:53 Follow up: Response: No adverse reaction lg3 19:38 Drug: Rocephin IV 1 grams IV at calculated rate once; Given slow IV push per pharmacy lg3 instructions Route: IV; Rate: calculated rate; Site: right antecubital; 19:53 Follow up: Response: No adverse reaction; IV Status: Completed infusion lg3 19:38 Drug: Doxycycline PO 200 mg PO once Route: PO; lg3 19:53 Follow up: Response: No adverse reaction lg3 Medication: 16:17 VIS not applicable for this client. jl7 Outcome: 19:27 Discharge ordered by . leyda 19:52 Discharged to home via wheelchair, lg3 19:52 Condition: stable 19:52 Discharge instructions given to patient, family, Instructed on discharge instructions, follow up and referral plans. no drinking with medication, no driving heavy equipment, medication usage, safety practices, Demonstrated understanding of instructions, follow-up care, medications, Prescriptions given X 1, 19:54 Patient left the ED. lg3 Signatures: Dispatcher [employer] EDMS Fátima Morel, Reg Reg mr Yanira Rajna, RN YAW iw Laura Blackmon RN RN ss Page, Corey, PA-C PALacie Mcneill cp, RN RN jl7 Kaylah Morales RN RN lg3
[2025-04-30 01:05] VITALS: TEMP 98
[2025-04-30 01:06] VITALS: BP 134/76; O2SAT 93
== END 2025-04-29 19:54 | disposition home or self-care (01) ==
LOC: ER 15:17
DX: S81.801A Unspecified open wound, right lower leg, initial encounter (principal)
CPT/HCPCS: 93005; 85025; 80048; 36415; 83735; 85610; 80076; 84484; 83880; 71045; 73590; 93970; 96375; 96374; 99284; J3010 ×2; J0696